=== PATIENT | male | born 1955 | race Caucasian/White ===

== ENCOUNTER 2024-09-20 17:28 | Emergency (ER) | payer MEDICARE, SELFPAY ==
[2024-09-20 17:36] VITALS: BP 170/96; PULSE 83; TEMP 36.8; O2SAT 100; BMI 40.4
--- NOTE | 2024-09-20 17:52 | ED.GENADUL1 ---
HPI HPI - General Adult General Chief complaint: Headache Stated complaint: headache Time Seen by Provider: 09/20/24 17:30 Source: patient Mode of arrival: walk-in Limitations: no limitations History of Present Illness HPI narrative: Patient is a 69-year-old male presents to the ER with concerns of a left sided headache. Patient notes for the past 2 to 3 days he has been experiencing a aching sensation in his left ear left side of his neck and left temporal area of his head that is brief lasting several seconds but prominent and then returns he notes several episodes within an hour. He does have some aching that radiates to his eye and jaw he denies any dental pain. He denies any fever. Denies any loss of vision or double vision. Has a history of a head injury over a year ago with scar to the right forehead. Patient states he was evaluated for this. He is mostly concerned as he has known carotid artery disease but has not yet seen a vascular surgeon to discuss treatment options. Patient believes he is 70% or more occluded. He denies any difficulty moving extremities or having paresthesias. He denies any hearing loss or dizziness. He has a difficulty describing his symptoms but notes that it is an achy sensation that is preauricular lasting seconds when present and then completely gone.. this occurs several times within the hour and has been present for 3 days ( gradual in onset) Onset (ago): day(s) (2-3 days) Location: Reports head (left side of face) Related Data Home Medications ?Medication ?Instructions ?Recorded ?Confirmed albuterol sulfate 90 mcg/actuation 1 inh inhalation Q6H PRN shortness 09/20/24 09/20/24 aerosol inhaler of breath or wheezing famotidine 20 mg tablet 20 mg PO .daily 09/20/24 09/20/24 latanoprost 0.005 % eye drops 1 drp ophthalmic (eye) DAILY 09/20/24 09/20/24 losartan 50 mg tablet 50 mg PO DAILY 09/20/24 09/20/24 Allergies Allergy/AdvReac Type Severity Reaction Status Date / Time lisinopril AdvReac Severe Cough Verified 09/20/24 17:35 Opioid HPI Opioid Management Most Recent Opioid Data: Last Pain Scale 9 09/20/24 19:12 09/20/24 Last MAR Pain Assessment 09/20/24 19:12 Review of Systems ROS Constitutional Denies: fever or chills Eyes Reports: blurry vision (occ, denies loss of vision. ); Denies: change in vision, eye discomfort or seeing flashes Cardiovascular Denies: chest pain, palpitations or leg pain with exertion Respiratory Denies: shortness of breath or cough Gastrointestinal Denies: abdominal pain or nausea Musculoskeletal Denies: back pain or neck pain Integumentary/Breast Denies: rash, itching or redness Neurological Reports: headache; Denies: numbness in extremities, weakness in extremities, lack of coordination, dizziness, vertigo, confusion, behavioral changes, slurred speech, difficulty communicating thoughts, seizure-like activity or involuntary movements Psychiatric Denies: anxiety or mood swings Endocrine Denies: excessive urination PFSH PFSH Social History Little interest or pleasure in doing things: not at all Feeling down, depressed, or hopeless: not at all Exam Narrative Exam Narrative: Vital signs and nurses notes reviewed. The patient is not hypoxic. General: The patient appears well and in no apparent distress. Patient is resting comfortably on cart. Skin: Warm, dry, no pallor noted. The patient has no evidence of rash, petechiae, or purpura noted. Head: Normocephalic, atraumatic, no temporal arterial tenderness Neck: Supple, trachea mid-line, no tenderness, no lymphadenopathy. No meningeal signs. No nuchal rigidity. Eye: Pupils are equal, round and reactive to light, EOMI Ears, Nose, Mouth, and Throat: Oral mucosa is moist, TMs are clear bilaterally, no hemotympanum noted. no auricle or tragal tenderness noted..no canal swelling. + discomfort with tinnels over facial nerve. Fillings in left lower molars. minimal decay,. no palpable dental tenderness or mass, no TMJ tenderness. Cardiovascular: Regular Rate and Rhythm Respiratory: Patient is in no distress, no accessory muscle use, lungs are clear to auscultation, no wheezing, rales or rhonchi Back: non-tender, no CVA tenderness Musculoskeletal: normal ROM, no tenderness, no swelling, normal strength 5/5. Normal pulses to radial 2+ bilaterally and 2+ at DP and PT bilaterally and symmetrically. GI: Normal bowel sounds, no tenderness to palpation, no masses appreciated. No rebound, guarding, or rigidity noted. Neurological: A&O x4, normal equal foreman or supervisor and operator strength, normal finger to nose, no pronator drift. The patient is not ataxic. The patient has normal speech. The patient has normal coordination. . Normal motor and sensory observed. Psychiatric: Cooperative NIH=0 Constitutional Vital Signs, click to edit/add: Last Vital Signs Temp 98.6 F 09/20/24 19:02 Pulse 79 09/20/24 19:02 Resp 19 09/20/24 19:02 BP 149/79 H 09/20/24 19:02 Pulse Ox 96 09/20/24 19:02 O2 Del Method Room Air 09/20/24 17:36 Course Vital Signs Vital signs: Vital Signs Temperature 98.2 F 09/20/24 17:36 Pulse Rate 83 09/20/24 17:36 Respiratory Rate 18 09/20/24 17:36 Blood Pressure 170/96 H 09/20/24 17:36 Pulse Oximetry 100 09/20/24 17:36 Oxygen Delivery Method Room Air 09/20/24 17:36 Temperature 98.6 F 09/20/24 19:02 Pulse Rate 79 09/20/24 19:02 Respiratory Rate 19 09/20/24 19:02 Blood Pressure 149/79 H 09/20/24 19:02 Pulse Oximetry 96 09/20/24 19:02 Oxygen Delivery Method Room Air 09/20/24 17:36 Medical Decision Making [facility] Narrative Medical decision making narrative: Discussed patient's symptoms initial history and on and off symptoms that are brief that occur several times over hours highly concerning for trigeminal neuralgia. He does have a history of glaucoma recently went from 2 drops down to 1 drop with his latanoprost. Out of an abundance of caution his eye pressures were checked patient had 1 drop of tetracaine applied to each eye with verbal consent pressure in the right eye was 15 mmHg in the left eye was 13 to 14 mmHg. with tonopen. Pt is avid fisherman. but did not fish last year.. Pt has history of falls, last one though was in January with head injury per . Visual acuity per nurse is 20/40 bilateral. Reviewed his labs, mild dehydration suspected the patient has elevated blood pressure will need this rechecked with his family doctor. He reports minimal to no change with IV Toradol. He is agreeable to [place] notes the pain is tolerable and feels comfortable being discharged home. Patient and spouse verbalized the need that he may need to see an ENT specialist but recommend a visit with his family doctor first to recheck symptoms. He is also awaiting referral for vascular clinic regarding his carotid stenosis. He has no symptoms of acute stroke or TIA on today's presentation and episodic pain lasting seconds in the left preauricular area suspected to be trigeminal neuralgia. He does not have pain to the TMJ joint or dental area in that region and ears are without evidence of infection or inflammation.. will hold on antibiotics for sinus with review of CT pending PCP evaluation. symptoms favor more facial nerve inflammation. pt has no mastoid tenderness on exam. We acknowledged his concern with known carotid artery disease however his episodic left-sided facial pain with quick on and off features favors that of trigeminal neuralgia. The patient is to followup with primary care physician in next 2-3 days or to return to the emergency department should any of the signs or symptoms worsen or new symptoms develop. Patient had questions answered. The patient agrees with the following Diagnosis and Treatment plan and the patient will be discharged home. Lab Data Lab results reviewed: Yes I reviewed the patient's lab results Labs: Lab Results 09/20/24 Range/Units 18:00 WBC 6.2 (4.0-11.0) 10^3/uL RBC 5.02 (4.70-6.10) 10^6/uL Hgb 15.2 (14.0-18.0) g/dL Hct 44.9 (42.0-54.0) % MCV 89.4 (80.0-94.0) fL MCH 30.3 (25.9-34.0) pg MCHC 33.9 (29.9-35.2) g/dL RDW 13.1 (11.0-15.0) % Plt Count 202 (150-450) 10^3/uL MPV 9.4 L (9.5-13.5) fL Neut % (Auto) 67.4 (43.0-75.0) % Lymph % (Auto) 19.4 L (20.5-60.0) % [place] % (Auto) 7.1 (1.7-12.0) % Eos % (Auto) 4.8 (0.9-7.0) % Baso % (Auto) 1.1 (0.2-2.0) % Neut # (Auto) 4.2 (1.4-6.5) 10^3/uL Lymph # (Auto) 1.2 (1.2-3.8) 10^3/uL [place] # (Auto) 0.4 (0.3-0.8) 10^3/uL Eos # (Auto) 0.3 (0.0-0.7) 10^3/uL Baso # (Auto) 0.1 (0.0-0.1) 10^3/uL Abs Immat Gran (auto) 0.01 (0.00-0.03) 10^3/uL Imm/Tot Granulo (auto) 0.2 (0.0-0.5) % ESR 19 (<=20) mm/hr PT 10.8 (9.0-11.6) sec INR 1.02 APTT 32.2 (22.3-36.2) sec Sodium 139 (136-145) mmol/L Potassium 3.9 (3.5-5.1) mmol/L Chloride 104 (98-107) mmol/L Carbon Dioxide 24.2 (21.0-32.0) mmol/L Anion Gap 14.7 BUN 19.0 H (7.0-18.0) mg/dL Creatinine 1.33 H (0.70-1.30) mg/dL Est GFR ( Amer) >60 (>=60 mL/min/1.73m^2) Est GFR (Non-Af Amer) 54 L (>=60 mL/min/1.73m^2) BUN/Creatinine Ratio 14.3 Glucose 92 (74-106) mg/dL Calcium 8.9 (8.5-10.1) mg/dL Imaging Data CT scan - head: Radiologist's impression: Scan of the head shows mild generalized brain volume loss, mild chronic small vessel ischemic type changes in the white matter. No acute intracranial hemorrhage mass or infarct or edema. Mild mucosal thickening in the paranasal sinuses, clear mastoid air cells on the right side mild partial opacification of the left mastoid air cells. No acute process seen in the brain. No acute intracranial hemorrhage or mass infarct or edema. Mild partial opacification of the left mastoid air cells. Mild mucosal thickening in the paranasal sinuses. New x-ray chest no acute process seen in the chest no lobar consolidation or edema. Discharge Plan Discharge Chief Complaint: Headache Clinical Impression: Cephalalgia, Left-sided trigeminal neuralgia Patient Disposition: Home, Self-Care Time of Disposition Decision: 20:06 Condition: Good Prescriptions / Home Meds: No Action albuterol sulfate 90 mcg/actuation HFA aerosol inhaler 1 inh INHALATION Q6H PRN (Reason: shortness of breath or wheezing) famotidine 20 mg tablet 20 mg PO .daily latanoprost 0.005 % drops 1 drp OPHTHALMIC (EYE) DAILY losartan 50 mg tablet 50 mg PO DAILY Print Language: Romansh Instructions: Trigeminal Neuralgia (ED) Additional Instructions: Return to ER if any new symptoms develop. Referrals: Kelly Gee MD [Physician] - As needed [facility] [Primary Care Provider] - As soon as possible
[2024-09-20] MEDS: KETOROLAC TROMETHAMINE 30 MG/ML VIAL IVP (18:04)
[2024-09-20 18:07] LABS: Basophils Absolute Auto 0.1 10^3/uL (0.0-0.1); Basophils Percent Auto 1.1 % (0.2-2.0); Eosinophils Absolute Auto 0.3 10^3/uL (0.0-0.7); Eosinophils Percent Auto 4.8 % (0.9-7.0); Hematocrit 44.9 % (42.0-54.0); Hemoglobin 15.2 g/dL (14.0-18.0); Immature Granulocytes Abs Auto 0.01 10^3/uL (0.00-0.03); Immature Granulocytes Pct Auto 0.2 % (0.0-0.5); Lymphocytes Absolute Auto 1.2 10^3/uL (1.2-3.8); Lymphocytes Percent Auto 19.4 % (20.5-60.0); Mean Corpuscular HGB Conc 33.9 g/dL (29.9-35.2); Mean Corpuscular Hemoglobin 30.3 pg (25.9-34.0); Mean Corpuscular Volume 89.4 fL (80.0-94.0); Mean Platelet Volume 9.4 fL (9.5-13.5); Monocytes Absolute Auto 0.4 10^3/uL (0.3-0.8); Monocytes Percent Auto 7.1 % (1.7-12.0); Neutrophils Absolute Auto 4.2 10^3/uL (1.4-6.5); Neutrophils Percent Auto 67.4 % (43.0-75.0); Platelet Count 202 10^3/uL (150-450); Red Blood Count 5.02 10^6/uL (4.70-6.10); Red Cell Distribution Width 13.1 % (11.0-15.0); White Blood Count 6.2 10^3/uL (4.0-11.0)
[2024-09-20 18:13] LABS: Erythrocyte Sedimentation Rate 19 mm/hr (<=20)
[2024-09-20] MEDS: TETRACAINE HCL 0.5% OP SOL 80 DROP/4 ML BOTTLE OP (18:14)
[2024-09-20 18:16] LABS: Anion Gap 14.7; BUN Creatinine Ratio 14.3; Calcium 8.9 mg/dL (8.5-10.1); Carbon Dioxide 24.2 mmol/L (21.0-32.0); Chloride 104 mmol/L (98-107); Estimated GFR (African America >60 (>=60 mL/min/1.73m^2); Estimated GFR (Non-African Ame 54 (>=60 mL/min/1.73m^2); Glucose 92 mg/dL (74-106); Potassium 3.9 mmol/L (3.5-5.1); Sodium 139 mmol/L (136-145)
[2024-09-20 18:22] LABS: INR 1.02; Partial Thromboplastin Time 32.2 sec (22.3-36.2); Prothrombin Time 10.8 sec (9.0-11.6)
[2024-09-20 18:40] VITALS: BP 179/92; PULSE 74; O2SAT 94
[2024-09-20 19:02] VITALS: BP 149/79; PULSE 79; TEMP 37; O2SAT 96
[2024-09-20] MEDS: HYDROCODONE/ACET 5-325 MG TABLET 1 TAB PO (19:12)
[2024-09-20] MEDS: HYDROCODONE/ACET 5-325 MG TABLET 2 TAB PO (20:18)
--- NOTE | 2024-09-20 20:24 | PC.NURSE ---
i gave this patient verbal and written discharge orders along with take home medication, and this patient voices yes to understanding these. at time of discharge this patient voices no concerns and shows no signs of distress
[2024-09-22 17:08] LABS: Lyme Total Antibody CIA Negative (Negative)
== END 2024-09-20 20:23 | disposition home or self-care (01) ==
PROVIDERS: Personal Emergency Response Attendant; Emergency Provider Emergency Medicine; PCP Family Medicine
DX: R51.9 Headache, unspecified (principal); G50.0 Trigeminal neuralgia; I77.9 Disorder of arteries and arterioles, unspecified; H40.9 Unspecified glaucoma; Z91.81 History of falling; H53.8 Other visual disturbances; M54.2 Cervicalgia
CPT/HCPCS: 36415; 70450; 71045; 80048; 85025; 85610; 85652; 85730; 86618; 96374; 99285; J1885

== ENCOUNTER 2024-11-14 18:19 | Emergency (ER) | payer MEDICARE, SELFPAY ==
--- OUTSIDE RECORDS SUMMARY | 2024-10-29 14:52 | XMS_ITS ---
Author Name Auto Generated Organization [place] Support Name Relationship Address Phone VERNON COONEY Next of Kin Unknown [phone] DUKEDAVYIRE, VERNON Next of Kin Unknown [phone] DUKEDAVYIRE, VERNON Next of Kin Unknown [phone] DEMETRICESHIRE, VERNON Next of Kin [address] [address], [place] [address] Unavailable DUKEDAVYIRE, VERNON Next of Kin Unknown [phone] [place], Vernon Next of Kin [address] [place] [address] + DEMETRICESHIRE, VERNON Next of Kin Unknown [phone] DUKESHIRE, VERNON Next of Kin Unknown [phone] DUKESHIRE, VERNON Next of Kin Unknown [phone] DUKESHIRE, VERNON Next of Kin Unknown [phone] DUKESHIRE, VERNON Next of Kin Unknown [phone] DUKESHIRE, VERNON Next of Kin Unknown [phone] DUKESHIRE, VERNON Next of Kin [address] [place] [address] + Dukeshire, Vernon Next of Kin [address] [place] [address] + DUKESHIRE, VERNON Next of Kin [address] [place] [address], [place] [address] + DUKESHIRE, VERNON Next of Kin [address] [place] [address] + DUKESHIRE, VERNON Next of Kin [address] [place] [address] + VERNON COONEY Next of Kin [address] [place] [address] + IVET, VERNON Next of Kin Unknown [phone] RAJATIRE, VERNON Next of Kin Unknown [phone] RAJATIRE, VERNON Next of Kin Unknown [phone] DEMETRICESHIRE, VERNON Next of Kin Unknown [phone] Care Team Providers Care Bunch Breaker Name Role Phone KATRINA WEST Attending Unavailable EMILYFERFREDDY Attending Unavailable JENNA, KATRINA Attending Unavailable JENNA, KATRINA Referring Unavailable JENNA, KATRINA Referring Unavailable JENNA, KATRINA Attending Unavailable HACKENBURG, ELANA [place] Attending Unavailab le HACKENBURG, ELANA [place] Referring Unavailab le JENNA, KATRINA Referring Unavailable RADHA VELASQUEZ Attending Unavailab le JENNA, KATRINA Attending Unavailable JENNA, KATRINA Attending Unavailable JENNA, KATRINA Referring Unavailable JENNA, KATRINA Referring Unavailable COOK, Sae P Attending Unavailable COOK, Sae P Referring Unavailable COOK, Sae P Admitting Unavailable COOK, Sae P Attending Unavailable COOK, Sae P Attending Unavailable JENNA, KATRINA G Referring Unavailable COOK, Sae P Attending Unavailable COOK, Sae P Attending Unavailable COOK, Sae P Referring Unavailable COOK, Sae P Admitting Unavailable COOK, Sae P Attending Unavailable COOK, Sae P Referring Unavailable COOK, Sae P Admitting Unavailable COOK, Sae P Attending Unavailable COOK, Sae P Referring Unavailable COOK, Sae P Admitting Unavailable COOK, Sae P Admitting Unavailable COOK, Sae P Attending Unavailable COOK, Sae P Referring Unavailable JENNA, KATRINA G Referring Unavailable JENNA, KATRINA G Primary Care Unavailable COOK, SAE P Referring Unavailable JENNA, KATRINA G Primary Care Unavailable PHYSICIAN, UNKNOWN Referring Unavailable JENNA, KATRINA Canseco Primary Care Unavailable PHYSICIAN, UNKNOWN Referring Unavailable JENNAKATRINA Primary Care Unavailable COOK, SAE P Referring Unavailable KATRINA WEST Harleen Primary Care Unavailable SAE CONTRERAS Referring Unavailable JENNAFABYKATRINA G Primary Care Unavailable LyMarine Attending Unavailable Reed WestKatrina Primary Care Un available LyCharlye L Admitting Unavailable LyMarine L Attending Unavailable Camposmarta Katrina West Primary Care Un available Ly, Marine L Admitting Unavailable PROBLEMS DATE TYPE CONDITION / CODE ATTENDING STATUS [facility] 09/18/2024 Unknown Encounter for sc reening for malignant neoplasm of colon / Z12.11(ICD-10) LyCharlye L [facility] 02/25/2024 Unknown Dysphagia, unspe cified / R13.10(ICD-10) Ly, Marine L [facility] 02/10/2024 Unknown Calculus of kidn ey / N20.0(ICD-10) NA Active [facility] PROCEDURES No Procedure Records Found RESULTS XR LUMBAR SPINE AP/LAT/FLEX/EXT Observed: 10/29/2024 2:52 PM Status: F Source: [facility] Exam: XR LUMBAR SPINE AP/LAT /FLEX/EXT Reason for study: Chronic bilateral low back pain with left hip pain Comparison: None AP, lateral, lateral flexion, and lateral extension views There is a slight retrolisthesis of L3-L4, stable between flexion and extension. There is severe multilevel disc degeneration with vertebral spurring and multilevel facet joint osteoarthritis. Severe atherosclerotic vascular calcifications are noted. 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 Stable retrolisthesis of L3-L4. Dictated on: 10/29/2024 4:22 PM This report has been electronically signed and approved by the interpreting Radiologist. XR HIP 2 OR 3 VW LEFT Observed: 10/30/19 2:52 PM Status: F Source: [facility] EXAM: XR HIP 2 OR 3 VW LEFT REASON FOR STUDY: Chronic bilateral low back pain with left hip pain COMPARISON: None FINDINGS: AP view of the pelvis with 2 views of the left hip The bony pelvic ring is grossly intact. Hip joint alignment is satisfactory with mild joint space narrowing of both hips. There is no fracture. There are atheromatous vascular calcifications. Impression: Mild bilateral hip joint osteoarthritis Dictated on: 10/29/2024 4:25 PM This report has been electronically signed and approved by the interpreting Radiologist. PATIENT EDUCATION Observed: 10/27/2024 1:56 PM Status: F Source: [facility] Patient Education Nephrology Dietary Guidelines to Help Prevent Kidney Stones Kidney stones are deposits of minerals and salts that form inside your kidneys. Your risk of developing kidney stones may be greater depending on your diet, your lifestyle, the medicines you take, and whether you have certain medical conditions. Most people can lower their risks of developing kidney stones by following these dietary guidelines. Your dietitian may give you more specific instructions depending on your overall health and the type of kidney stones you tend to develop. What are tips for following this plan? Reading food labels ??? Choose foods with no salt added or low-salt labels. Limit your salt (sodium) intake to less than 1,500 mg a day. ??? Choose foods with calcium for each meal and snack. Try to eat about 300 mg of calcium at each meal. Foods that contain 200?500 mg of calcium a serving include: ? 8 oz (237 mL) of milk, hpicisz-tgondpwvamsn-hxqgh milk, and calcium- fortifiedfruit juice. Calcium-fortified means that calcium has been added to these drinks. ? 8 oz (237 mL) of kefir, yogurt, and soy yogurt. ? 4 oz (114 g) of tofu. ? 1 oz (28 g) of cheese. ? 1 cup (150 g) of dried figs. ? 1 cup (91 g) of cooked broccoli. ? One 3 oz (85 g) can of sardines or mackerel. Most people need 1,000?1,500 mg of calcium a day. Talk to your dietitian about how much calcium is recommended for you. Shopping ??? Buy plenty of fresh fruits and vegetables. Most people do not need to avoid fruits and vegetables, even if these foods contain nutrients that may contribute to kidney stones. ??? When shopping for convenience foods, choose: ? Whole pieces of fruit. ? Pre-made salads with dressing on the side. ? Low-fat fruit and yogurt smoothies. ??? Avoid buying frozen meals or prepared deli foods. These can be high in sodium. ??? Look for foods with live cultures, such as yogurt and kefir. ??? Choose high-fiber grains, such as whole-wheat breads, oat bran, and wheat cereals. Cooking ??? Do not add salt to food when cooking. Place a salt shaker on the table and allow each person to add their own salt to taste. ??? Use vegetable protein, such as beans, textured vegetable protein (TVP), or tofu, instead of meat in pasta, casseroles, and soups. Meal planning ??? Eat less salt, if told by your dietitian. To do this: ? Avoid eating processed or pre-made food. ? Avoid eating fast food. ??? Eat less animal protein, including cheese, meat, poultry, or fish, if told by your dietitian. To do this: ? Limit the number of times you have meat, poultry, fish, or cheese each week. Eat a diet free of meat at least 2 days a week. ? Eat only one serving each day of meat, poultry, fish, or seafood. ? When you prepare animal proteins, cut pieces into small portion sizes. For most meat and fish, one serving is about the size of the palm of your hand. ??? Eat at least five servings of fresh fruits and vegetables each day. To do this: ? Keep fruits and vegetables on hand for snacks. ? Eat one piece of fruit or a handful of berries with breakfast. ? Have a salad and fruit at lunch. ? Have two kinds of vegetables at dinner. ??? You may be told to limit foods that are high in a substance called oxalate. These include: ? Spinach (cooked), rhubarb, beets, sweet potatoes, and Tunisian chard. ? Peanuts. ? Potato chips, [place] gu[place] fries, and baked potatoes with skin on. ? Nuts and nut products. ? Chocolate. ??? If you regularly take a diuretic medicine, make sure to eat at least 1 or 2 servings of fruits or vegetables that are high in potassium each day. These include: ? Avocado. ? Banana. ? [place], prune, carrot, or tomato juice. ? Baked potato. ? Cabbage. ? Beans and split peas. Lifestyle ??? Drink enough fluid to keep your urine pale yellow. This is the most important thing you can do. Spread your fluid intake throughout the day. ??? If you drink alcohol: ? Limit how much you have to: ? 0?1 drink a day for women who are not . ? 0?2 drinks a day for men. ? Know how much alcohol is in your drink. In the [place] one drink equals one 12 oz bottle of beer (355 mL), one 5 oz glass of wine (148 mL), or one 1? oz glass of hard liquor (44 mL). ??? Lose weight if told by your health care provider. Work with your dietitian to find an eating plan and weight loss strategies that work best for you. General information ??? Talk to your health care provider and dietitian about taking daily supplements. Depending on your health and the cause of your kidney stones, you may be told: ? Do not take high-dose supplements of vitamin C (1,000 mg a day or more). ? To take a calcium supplement. ? To take a daily probiotic supplement. ? To take other supplements such as magnesium, fish oil, or vitamin B6. ??? Take gray-skr-uozzqjq and prescription medicines only as told by your health care provider. These include supplements. What foods should I limit? Limit your intake of the following foods, or eat them as told by your dietitian. Vegetables Spinach. Rhubarb. Beets. Canned vegetables. Pickles. Olives. Baked potatoes with skin. Grains Wheat bran. Baked goods. Salted crackers. Cereals high in sugar. Meats and other proteins Nuts. Nut butters. Large portions of meat, poultry, or fish. Salted, precooked, or cured meats, such as sausages, meat loaves, and hot dogs. Dairy Cheeses. Beverages Regular soft drinks. Regular vegetable juice. Seasonings and condiments Seasoning blends with salt. Salad dressings. Soy sauce. Ketchup. Barbecue sauce. Other foods Canned soups. Canned pasta sauce. Casseroles. Pizza. Lasagna. Frozen meals. Potato chips. Norwegian fries. The items listed above may not be a complete list of foods and beverages you should limit. Contact a dietitian for more information. What foods should I avoid? Talk to your dietitian about specific foods you should avoid based on the type of kidney stones you have and your overall health. Fruits Grapefruit. The item listed above may not be a complete list of foods and beverages you should avoid. Contact a dietitian for more information. Summary ??? Kidney stones are deposits of minerals and salts that form inside your kidneys. ??? You can lower your risk of kidney stones by making changes to your diet. ??? The most important thing you can do is drink enough fluid. Drink enough fluid to keep your urine pale yellow. ??? Talk to your dietitian about how much calcium you should have each day, and eat less salt and animal protein as told by your dietitian. This information is not intended to replace advice given to you by your health care provider. Make sure you discuss any questions you have with your health care provider. Document Revised: 09/20/2022 Document Reviewed: 09/20/2022 [employer] Patient Education ? 2023 [employer]. AMBULATORY VISIT SUMMARY Observed: 10/27 1:01 PM Status: F Source: [facility] Ambulatory Visit Summary BANDAR COONEY :1955 Visit Date:10/27/2024 Ambulatory Visit Instructions Your Diagnosis Kidney stone Gross hematuria Tests Performed CT Urogram -- Results Pending -- Please visit your patient portal for your results or contact your primary care physician. Your Care Team Attending Physician - CHAR WALLACE, Sae Juarez Primary Care Physician - JENNA WALLACE, KATRINA Canseco This Is Your Medications List Contact prescribing physician if questions or concerns buPROPion (buPROPion 300 mg/24 hours ER Tab) citalopram (citalopram 40 mg Tab) famotidine (famotidine 20 mg Tab) gabapentin (gabapentin 100 mg Cap) insulin isophane-insulin regular (Novolin 70/30) losartan (losartan 50 mg Tab) semaglutide (Ozempic) simvastatin (simvastatin 40 mg Tab) Procedures Performed Cystoscopy (04/22/2024), Cholecystectomy, Colonoscopy, Hemorrhoid, Procedure on back. Discharge Vitals Temperature (Temporal Artery) 37 ???C Heart Rate (Peripheral) 80 Respiratory Rate 18 Blood Pressure 138/87 Height 180 cm Height 71 in Weight 134.9 kg Weight 297.403 lb BMI 41.64 What to do next You Need to Schedule the Following Appointments Follow Up with CHAR WALLACE, LIZZIE Roy When: [facility] [address] [place] [id number]- Medications What How Much When Instructions Unchanged buPROPion (buPROPion 300 mg/ 24 hours ER Tab) 1 Tablets By Mouth Every day Contact prescribing physician if questions or concerns Unchanged citalopram (citalopram 40 mg Tab) 1 Tablets By Mouth Every day Contact prescribing physician if questions or concerns Unchanged famotidine (famotidine 20 mg Tab) 1 Tablets By Mouth Every day Contact prescribing physician if questions or concerns Unchanged gabapentin (gabapentin 100 mg Cap) 1 Capsules By Mouth Every day Contact prescribing physician if questions or concerns Unchanged insulin isophane-insulin regular (Novolin 70/ 30) 35 Units Subcutaneous Twice a day (before meals) Contact prescribing physician if questions or concerns Unchanged losartan (losartan 50 mg Tab) 1 Tablets By Mouth Every day Contact prescribing physician if questions or concerns Unchanged semaglutide (Ozempic) Subcutaneous Every week Contact prescribing physician if questions or concerns Unchanged simvastatin (simvastatin 40 mg Tab) 1 Tablets By Mouth Once a day (at bedtime) Contact prescribing physician if questions or concerns Allergies Latex (Itch) Tape (Itching) Problems Ongoing - Any problem that you are currently receiving treatment for. Arthritis Depression Diabetes mellitus, type II Erectile dysfunction Gall stone Glaucoma Gross hematuria Head ache Hyperlipidemia Hypertension Kidney stone Liver disease Morbid obesity with BMI of 40.0-44.9, adult Skin cancer Patient Survey You may receive a survey via text or e-mail asking about your office visit. Please share your experience with us by completing your survey. We appreciate your feedback and thank you for choosing us for your care. Education Materials Dietary Guidelines to Help Prevent Kidney Stones Kidney stones are deposits of minerals and salts that form inside your kidneys. Your risk of developing kidney stones may be greater depending on your diet, your lifestyle, the medicines you take, and whether you have certain medical conditions. Most people can lower their risks of developing kidney stones by following these dietary guidelines. Your dietitian may give you more specific instructions depending on your overall health and the type of kidney stones you tend to develop. What are tips for following this plan? Reading food labels ??? Choose foods with no salt added or low-salt labels. Limit your salt (sodium) intake to less than 1,500 mg a day. ??? Choose foods with calcium for each meal and snack. Try to eat about 300 mg of calcium at each meal. Foods that contain 200???500 mg of calcium a serving include: ? 8 oz (237 mL) of milk, hfdvqob-qxwytrtaebzx-pnbbu milk, and calcium- fortifiedfruit juice. Calcium-fortified means that calcium has been added to these drinks. ? 8 oz (237 mL) of kefir, yogurt, and soy yogurt. ? 4 oz (114 g) of tofu. ? 1 oz (28 g) of cheese. ? 1 cup (150 g) of dried figs. ? 1 cup (91 g) of cooked broccoli. ? One 3 oz (85 g) can of sardines or mackerel. Most people need 1,000???1,500 mg of calcium a day. Talk to your dietitian about how much calcium is recommended for you. Shopping ??? Buy plenty of fresh fruits and vegetables. Most people do not need to avoid fruits and vegetables, even if these foods contain nutrients that may contribute to kidney stones. ??? When shopping for convenience foods, choose: ? Whole pieces of fruit. ? Pre-made salads with dressing on the side. ? Low-fat fruit and yogurt smoothies. ??? Avoid buying frozen meals or prepared deli foods. These can be high in sodium. ??? Look for foods with live cultures, such as yogurt and kefir. ??? Choose high-fiber grains, such as whole-wheat breads, oat bran, and wheat cereals. Cooking ??? Do not add salt to food when cooking. Place a salt shaker on the table and allow each person to add their own salt to taste. ??? Use vegetable protein, such as beans, textured vegetable protein (TVP), or tofu, instead of meat in pasta, casseroles, and soups. Meal planning ??? Eat less salt, if told by your dietitian. To do this: ? Avoid eating processed or pre-made food. ? Avoid eating fast food. ??? Eat less animal protein, including cheese, meat, poultry, or fish, if told by your dietitian. To do this: ? Limit the number of times you have meat, poultry, fish, or cheese each week. Eat a diet free of meat at least 2 days a week. ? Eat only one serving each day of meat, poultry, fish, or seafood. ? When you prepare animal proteins, cut pieces into small portion sizes. For most meat and fish, one serving is about the size of the palm of your hand. ??? Eat at least five servings of fresh fruits and vegetables each day. To do this: ? Keep fruits and vegetables on hand for snacks. ? Eat one piece of fruit or a handful of berries with breakfast. ? Have a salad and fruit at lunch. ? Have two kinds of vegetables at dinner. ??? You may be told to limit foods that are high in a substance called oxalate. These include: ? Spinach (cooked), rhubarb, beets, sweet potatoes, and Tunisian chard. ? Peanuts. ? Potato chips, [place] fries, and baked potatoes with skin on. ? Nuts and nut products. ? Chocolate. ??? If you regularly take a diuretic medicine, make sure to eat at least 1 or 2 servings of fruits or vegetables that are high in potassium each day. These include: ? Avocado. ? Banana. ? [place], prune, carrot, or tomato juice. ? Baked potato. ? Cabbage. ? Beans and split peas. Lifestyle ??? Drink enough fluid to keep your urine pale yellow. This is the most important thing you can do. Spread your fluid intake throughout the day. ??? If you drink alcohol: ? Limit how much you have to: ? 0???1 drink a day for women who are not . ? 0???2 drinks a day for men. ? Know how much alcohol is in your drink. In the [place] one drink equals one 12 oz bottle of beer (355 mL), one 5 oz glass of wine (148 mL), or one 1??? oz glass of hard liquor (44 mL). ??? Lose weight if told by your health care provider. Work with your dietitian to find an eating plan and weight loss strategies that work best for you. General information ??? Talk to your health care provider and dietitian about taking daily supplements. Depending on your health and the cause of your kidney stones, you may be told: ? Do not take high-dose supplements of vitamin C (1,000 mg a day or more). ? To take a calcium supplement. ? To take a daily probiotic supplement. ? To take other supplements such as magnesium, fish oil, or vitamin B6. ??? Take pptc-vam-wqyfavj and prescription medicines only as told by your health care provider. These include supplements. What foods should I limit? Limit your intake of the following foods, or eat them as told by your dietitian. Vegetables Spinach. Rhubarb. Beets. Canned vegetables. Pickles. Olives. Baked potatoes with skin. Grains Wheat bran. Baked goods. Salted crackers. Cereals high in sugar. Meats and other proteins Nuts. Nut butters. Large portions of meat, poultry, or fish. Salted, precooked, or cured meats, such as sausages, meat loaves, and hot dogs. Dairy Cheeses. Beverages Regular soft drinks. Regular vegetable juice. Seasonings and condiments Seasoning blends with salt. Salad dressings. Soy sauce. Ketchup. Barbecue sauce. Other foods Canned soups. Canned pasta sauce. Casseroles. Pizza. Lasagna. Frozen meals. Potato chips. Norwegian fries. The items listed above may not be a complete list of foods and beverages you should limit. Contact a dietitian for more information. What foods should I avoid? Talk to your dietitian about specific foods you should avoid based on the type of kidney stones you have and your overall health. Fruits Grapefruit. The item listed above may not be a complete list of foods and beverages you should avoid. Contact a dietitian for more information. Summary ??? Kidney stones are deposits of minerals and salts that form inside your kidneys. ??? You can lower your risk of kidney stones by making changes to your diet. ??? The most important thing you can do is drink enough fluid. Drink enough fluid to keep your urine pale yellow. ??? Talk to your dietitian about how much calcium you should have each day, and eat less salt and animal protein as told by your dietitian. This information is not intended to replace advice given to you by your health care provider. Make sure you discuss any questions you have with your health care provider. Document Revised: 09/20/2022 Document Reviewed: 09/20/2022 [employer] Patient Education ??? 2023 [employer]. UROLOGY OFFICE/CLINIC NOTE Observed: 11/2024 1:01 PM Status: F Source: [facility] Urology Office/Clinic Note Chief Complaint kidney stone HPI Staff PO ESWL 04/22/24 [place] done 10/21/24 @ [facility]. Previous DX: kidney stone, gross hematuria and ED IPSS score today is 1. Pt denies all urinary complaints at this time with his urination habits. States that he does continue to have pain off and on in both the right and left sides of his back. States that did see some blood after urination just this past weekend. States that he has some bladder pressure that is uncomfortable at times. History of Present Illness Tests reviewed: reviewed UA, [place], stone analysis. I have reviewed the previous health record information and history for this patient from Dr. Contreras I have reviewed and verified the staff HPI to be accurate for this encounter. There have been no associated fever, chills, flank pain, or blood in the urine. Denies any urinary infections since last encounter. Review of Systems ROS - Provider Constitutional: denies weight loss, denies hot flashes. Eyes: denies eye problems. Gastrointestinal: denies nausea, denies vomiting. Cardiovascular: denies chest pain or angina. Integumentary: no dryness Musculoskeletal: denies musculoskeletal symptoms. ENMT: denies otolaryngeal symptoms. Respiratory: no shortness of breath. Heme/Lymph: denies easy bleeding tendency, denies easy bruising tendency. Psychiatric: no confusion, no anxiety. Genitourinary: See HPI. Physical Exam Vitals & Measurements T: 37 ???C(Temporal Artery) HR: 80(Peripheral) RR: 18 BP: 138/87 HT: 180 cm HT: 71 in WT: 134.9 kg WT: 297.403 lb BMI: 41.64 General Appearance: alert, no distress, well nourished, well developed male. Assessment/Plan IPSS 1 (0) Portions of this record may have been created with voice recognition artificial intelligence software, specifically [employer], [employer] and or [employer]. Substitutions may have occurred due to the inherent limitations of voice recognition and artificial intelligence software. 1. Kidney stone (N20.0: Calculus of kidney) CT AP wo con 09/22/22 - Left sided oval renal calculus in the left renal pelvis measuring 1.4 x 0.5 cm. There is not significant left sided hydronephrosis, no ureteral stone. KUB 11/05/22 [facility] - No urinary tract calculi. Personal review: no stones visible. [1] -Pt was scheduled for L ESWL 11/15/22 but pt went to [facility] due to plans to go on vacation around time of ESWL. Saw Dr. Webb with [facility] 11/13/22, discussed operative intervention options but pt wished to undergo dissolution therapy and was started on potassium citrate. States he never had follow up due to technological complications. CT AP wo con 03/20/23 [facility] - Stable 1.3 x 0.4 cm nonobstructing L renal stone. No hydro. No R renal stones noted. KUB 01/24/24 [facility] - No evidence of nephrolithiasis. Retroperitoneal US 02/14/24 [facility] - several left renal calculi, largest 8 mm. S/p cysto, L RPG, L ESWL, L stent placement 03/12/24. Retroperitoneal US 03/24/24 [facility] - small left echogenic calculi. No hydro. KUB 04/22/24 [facility] - Left double-J ureteral stent identified with cephalad portion coiled in renal collecting system left kidney and caudal portion coiled in region of urinary bladder. S/p cysto, L stent removal, L URS/nephroscopy, holmium laser of ureteral and renal calculus/calculi, basket extraction of renal calculi fragments, replacement of L ureteral stent 04/22/24. Stone analysis - 80% uric acid and 20% ca ox monohydrate Renal US 05/12/24 [facility] - small R kidney. 4 x 6 mm calculus midpole left kidney. Retroperitoneal US 10/21/24 [facility] - 0.3 cm left renal calculus. Pt was taking potassium citrate 10mEq through [facility], Dr. Webb. Potassium 02/10/24 - 4.1 wnl. Pt states today that he is no longer taking it due to being told by our office that it doesn't do anything . Encouraged pt to restart medication. Completed 24hr urine in the distant past, does not recall findings. Pt complains of bilateral back pain, likely musculoskeletal based on exam however pt states pain is similar to prior stone events. Will order CT Urogram to rule out stone and/or obstruction. He agrees. -Restart Potassium Citrate 10 mEq 2 pills bid, new script sent -Check lytes at next lab drawn through primary care -Schedule [facility] Urogram at [facility] Follow up based on CT results. 2. Gross hematuria (R31.0: Gross hematuria) Pt states last weekend he noticed blood after he voided. Reports dysuria that has been ongoing for quite awhile . UA today negative for blood or infection. -Ordering CT Urogram to rule out stone, see above -Cont symptomatic monitoring The patient is here with his today. He previously had the uric acid stones lasered after his ESWL. He has had some bilateral flank pain and some of this was associated with a single episode of possible gross hematuria. Current urinalysis is negative. Renal ultrasound demonstrates only a 3 to 4 mm stone in the left kidney. Due to the persistence of his pain and the association with hematuria, I have recommended a CT urogram to be sure he is not trying to pass a stone on either side despite the ultrasound report. They agree with the plan. Once findings are noted we will decide upon the next step. Apparently the patient felt that I had previously told him that potassiums citrate was not necessarily needed. His urinary pH is 5.5 and I feel that it is a medication which may help him prevent uric acid stone formation, given the fact his current pH is 5.5. He agrees with the plan Follow-up With When Contact Information CHAR WALLACE, Sae Juarez, URL [address] [facility] [address] [place] [phone]- Additional Instructions: F/up barring CTU results Patient Education Dietary Guidelines to Help Prevent Kidney Stones I, Erendira Willingham, personally scribed for Dr. Contreras on 10/27/2024 14:02:35. . Documentation recorded by the scribe, Erendira Willingham, accurately reflects the services(s) I performed and decisions made by me. Authenticated by Dr. Contreras on 10/27/2024 14:04:43. Problem List/Past Medical History Ongoing Arthritis Depression Diabetes mellitus, type II Erectile dysfunction Gall stone Glaucoma Gross hematuria Head ache Hyperlipidemia Hypertension Kidney stone Liver disease Morbid obesity with BMI of 40.0-44.9, adult Skin cancer Historical No qualifying data Procedure/Surgical History Cystoscopy (04/22/2024), Cholecystectomy, Colonoscopy, Hemorrhoid, Procedure on back. Medications buPROPion 300 mg/24 hours ER Tab, 300 mg= 1 tab(s), Oral, Daily citalopram 40 mg Tab, 40 mg= 1 tab(s), Oral, Daily famotidine 20 mg Tab, 20 mg= 1 tab(s), Oral, Daily gabapentin 100 mg Cap, 100 mg= 1 cap(s), Oral, Daily losartan 50 mg Tab, 50 mg= 1 tab(s), Oral, Daily Novolin 70/30, 35 unit(s), SubCutaneous, BIDAC Ozempic, SubCutaneous, qWeek simvastatin 40 mg Tab, 40 mg= 1 tab(s), Oral, Once a day (at bedtime) Allergies Latex (Itch) Tape (Itching) Social History Alcohol - Denies Alcohol Use, 04/14/2024 Substance Abuse - Denies Substance Abuse, 04/14/2024 Tobacco - Denies Tobacco Use, 04/14/2024 Former smoker, quit more than 30 days ago Tobacco Use:. Never Smokeless Tobacco Use:. Cigarettes, Yes, 10/27/2024 Family History Alcoholism: Brother. Arthritis: Mother. Diabetes mellitus: Father. Drug addiction: Brother. Primary malignant neoplasm of lung: Mother. Immunizations Vaccine Date Status influenza virus vaccine, inactivated 05/01/2024 Recorded diphtheria/pertussis, acel/tetanus adult 09/12/2023 Recorded influenza virus vaccine, inactivated 05/02/2023 Recorded influenza virus vaccine, inactivated 05/22/2022 Recorded pneumococcal 23-valent vaccine 03/16/2021 Recorded influenza virus vaccine, inactivated 03/16/2021 Recorded SARS-CoV-2 (COVID-19) mRNA BNT-162b2 vax 10/18/2020 Recorded SARS-CoV-2 (COVID-19) mRNA BNT-162b2 vax 09/27/2020 Recorded pneumococcal 13-valent vaccine 05/28/2019 Recorded influenza virus vaccine, inactivated 05/28/2019 Recorded Lab Results Ambulatory Point of Care Results Bilirubin Urine Dipstick: Negative (10/27/24 13:13:00) Blood Urine Dipstick: Negative (10/27/24 13:13:00) Glucose Urine Dipstick: Negative (10/27/24 13:13:00) Ketones Urine Dipstick: Negative (10/27/24 13:13:00) Leukocytes Urine Dipstick: Negative (10/27/24 13:13:00) Nitrite Urine Dipstick: Negative (10/27/24 13:13:00) Protein Urine Dipstick: Negative (10/27/24 13:13:00) Specific [place] Urine Dipstick: >=1.030 (10/27/24 13:13:00) Urine Appearance Urine Dipstick: Clear (10/27/24 13:13:00) Urine Color Urine Dipstick: Yellow (10/27/24 13:13:00) Urobilinogen Urine Dipstick: Normal 0.2-1 EU/dl (10/27/24 13:13:00) pH Urine Dipstick: 5.5 (10/27/24 13:13:00) Result Comment: Electronical ly Signed By: Sae CONTRERAS MD\.br\Date and Time Signed: 10/27/24 14:06 EDT\.br\Electronically Co-Signed By: Erendira Willingham.br\Date and Time Co-Signed: 10/27/24 14:02 EDT US RETROPERITONEAL LIMITED Observed: 1:34 PM Status: COMPLETED Source: [facility] US RETROPERITONEAL LIMITED US RETROPERITONEAL LIMITED Clinical history:Kidney stone renal calculus Comparison: 03/24/2024. Findings: Real-time sonographic evaluation of the kidneys performed. Kidney measures 10.8 x 4.7 x 5.1 cm. Left kidney measures 12.8 x 4.4 x 5.5 cm. Cortical thickness and the right is 0.7 cm, the left 0.7 cm. Small left renal calculus is seen measuring 0.3 cm. Increased hepatic echotexture suggestive of diffuse hepatocellular disease, most commonly diffuse hepatic steatosis. Impression: No renal collecting system dilatation. Small left superior renal pole calculus. Finalized by Venkata Smith MD on 10/26/2024 9:17 AM L Observed: 09/18/2024 9:52 AM Status: F Source: [facility] ----- ------- Specimen: [id number] Received: 09/18/24 Status: BESSIE Argueta Num: [id number] Spec Type: Surgical Subm Dr: Marine Friend DO Tissues: A Colon Biopsy (DESCENDING COLON POLYPS) B Colon Biopsy (ASCENDING COLON POLYPS) C Colon Biopsy (TRANSVERSE COLON POLYP) Procedures: HE/Rani, Gross/Micro L4/3, Gross/Micro L3 ----- ------- Age/ Patient Sex Location Account Attending Physician ----- ------- Bandar Cooney/Ankit [id number] Marine Friend DO ----- ------- SPEC NUM: [id number] RECD: 09/18/24 STATUS: BESSIE KENDALL NUM: [id number] HÉCTOR: 09/18/[address]: Marine Friend DO ENTERED: 09/18/24 [facility] DR: SPEC TYPE: Surgical DEPT: S ENTERED BY: [id number] RECV BY: [id number] ORDERED: HE/6, Gross/Micro L4/3, Gross/Micro L3 ORDERED: HE/6, Gross/Micro L4/3, Gross/Micro L3 Pathological Diagnosis A. Descending colon polyps: ? Fragments of tubular adenoma and hyperplastic polyp ? Negative for carcinoma D. Ascending colon polyps: ? Fragments of tubular adenomas - Negative for carcinoma C. Transverse colon polyp: ? Fragments of tubular adenoma - Fragments of dietary material are noted - Negative for carcinoma Clinical Information History of polyps Gross Description Part A is received in formalin labeled with the patients name, date of , and descending colon are 2 miguel-iverson, focally erythematous, friable, 0.3 and 1.2 cm in greatest dimension polypoid fragments, 0.3 and 1.2 cm in greatest dimension. The larger polyp is inked black, bisected, and entirely submitted in a single cassette with the smaller polyp ----- ------- Specimen: [id number] Received: 09/18/24 Status: BESSIE Kendall Num: [id number] Spec Type: Surgical Subm Dr: Marine Friend DO Tissues: A Colon Biopsy (DESCENDING COLON POLYPS) B Colon Biopsy (ASCENDING COLON POLYPS) C Colon Biopsy (TRANSVERSE COLON POLYP) Procedures: HE/6, Gross/Micro L4/3, Gross/Micro L3 ----- ------- Patient: Bandar Cooney [id number] (Continued) ----- ------- Specimen: [id number] Received: 09/18/24 (Continued) Gross Description (Continued) Signed (signature on file) Roshan Mccloud MD 09/21/24 0926 ----- ------- Specimen: [id number] Received: 09/18/24 Status: BESSIE Argueta Num: [id number] Spec Type: Surgical Subm Dr: Marine Friend DO Tissues: A Colon Biopsy (DESCENDING COLON POLYPS) B Colon Biopsy (ASCENDING COLON POLYPS) C Colon Biopsy (TRANSVERSE COLON POLYP) Procedures: HE/6, Gross/Micro L4/3, Gross/Micro L3 ----- ------- Patient: Bandar Cooney [id number] (Continued) ----- ------- Specimen: Received: 09/18/24 (Continued) Gross Description (Continued) inked green and intact. (1, ns, A)JG Part B is received in formalin labeled with the patients name, date of , and ascending colon are 5 miguel-iverson, focally erythematous, friable, 0.2 to 0.3 cm in greatest dimension polypoid fragments. The specimen is entirely submitted in a single cassette. (1, ns, 1773 B) JG Part C is received in formalin labeled with the patients name, date of , and transverse colon are 2 miguel-iverson, focally erythematous, friable, 0.3 and 0.4 cm in greatest dimension polypoid fragments with adherent vegetative material. The specimen is entirely submitted in a single cassette. (1, ns, C) CPT Codes 96064n3 ----- ------- ----- ------- Specimen: [id number] Received: 09/18/24 Status: BESSIE Argueta Num: [id number] Spec Type: Surgical Subm Dr: Marine Friend, DO Tissues: A Colon Biopsy (DESCENDING COLON POLYPS) B Colon Biopsy (ASCENDING COLON POLYPS) C Colon Biopsy (TRANSVERSE COLON POLYP) Procedures: HE/6, Gross/Micro L4/3, Gross/Micro L3 ----- ------- Patient: RajatBandar martini [id number] (Continued) ----- ------- Signed (signature on file) Roshan Mccloud MD 09/21/24 0926 GLUCOSE POCT GLUCOMETERS Collected: 09/18/2024 8:25 A M Status: F Source: [facility] TYPE CODE TESTS RESULT OUT OF RANGE REFERENCE UNITS LAB GLUPOC Glucose Poc Glucometers 127 mg/dL Result Comment: Random Gluco se Reference Range is dependent on time and content of last meal. Glucose of more than 200 mg/dL in a nonstressed, ambulatory subject supports the diagnosis of Diabetes Mellitus. PERFORMED BY: [facility] [place] [address] PATHOLOGIST SEAL EXTRUSION OPERATOR JUSTO DELUNA M.D. Performed By: #### GLULS ### # Point of Care testing , VASC US CAROTID ARTERY DUPLEX BILATERAL Observed: 08/07/2024 10:44 AM Status: F Source: [facility] EPIC EXAM: Carotid Ultrasound: REASON FOR EXAM: Bruit bilateral. COMPARISON: None. TECHNIQUE: Longitudinal and transverse grayscale, color Doppler, and spectral wave analysis of the extracranial carotid vertebral systems obtained. FINDINGS: Scattered echogenic shadowing plaques present throughout. Common and internal velocities and ratios are normal. Elevation of the right external carotid velocity. Vertebral artery flow is antegrade bilaterally. Carotid Velocities in cm/sec: Right Peak Systole/End Diastole RCCA: 94/22 BULB: 123/31 FAM: Prox: 83/19 Mid: 68/19 Dist: 62/19 RECA: 230 RT VERT: 60, antegrade FAM/CCA RATIO: 0.88 Left Peak Systole/End Diastole LCCA: 134/24 BULB: 110/21 LICA: Prox: 54/15 Mid: 66/18 Dist: 79/20 LECA: 147 LT VERT: 54, antegrade LICA/CCA RATIO: 0.59 IMPRESSION: 1. Mild atheromatous disease due to calcified plaque bilaterally. No hemodynamically significant stenosis. 2. Likely 70% narrowing of the right external carotid artery. 3. Vertebral artery flow is antegrade bilaterally. This report is generated using voice recognition reporting ([employer]). On occasion, [employer] erroneously drops words from the report or replaces the spoken word with a similar sounding word. Please call with any questions/concerns regarding the report. Dictated and transcribed 08/07/2024/amanuel This report has been electronically signed and approved by the interpreting radiologist. PROVIDER LETTER Observed: 05/20/2024 11:05 AM Status: F Source: [facility] Provider Letter May 20, 2024 [place] [address] : 1955 Dear Bandar, We have been trying to reach you with no success. It is important that you return our call regarding your results upon receiving this letter. Also, at the time of your call, please provide us with your current information. Thank you for your prompt attention to this matter. Sincerely, [facility] [address], [place], [place] [address] [phone] US RENAL Observed: 05/12/2024 10:16 AM Status: F Source: [facility] Exam Date/Time: 05/12/2024 10:36 EST Reason for Exam: kidney stone;Other (please specify) Report IMPRESSION: Small right kidney. Nonobstructing left renal calculus. CLINICAL HISTORY: kidney stone. COMPARISON: NONE. COMMENT: Right kidney measures 10.7 x 5.6 x 5.5 cm. Left kidney measures 13.4 x 5.5 x 5.9 cm. Right kidney smaller than left. Both kidneys normal in contour, echogenicity and color flow. 4 x 6 mm calculus midpole left kidney. No pelvocaliectasis, cortical thinning, cystic/solid lesions bilaterally. Ordering Provider: Sae CONTRERAS FINAL REPORT Dictated: 05/12/2024 4:24 pm SignKennedy mcgowan MD Signed (Electronic Signature): 05/12/2024 4:24 pm Signed by: Kennedy Foote MD Transcribed by: PAT Technologist: PAIGE XR KNEE 4+ VIEWS LEFT Observed: 05/11/20 3:20 PM Status: F Source: [facility] Exam: XR KNEE 4+ VIEWS LEFT Clinical History: Severe left knee pain medially for three days, no trauma Reference Exam: No comparison FINDINGS: Left knee joint spaces are preserved. Small amount of fluid in the left knee joint. Regional vascular atherosclerosis. No fracture or other bony lesion. IMPRESSION: Small left knee joint effusion. Otherwise, no acute abnormality is determined radiographically. Dictated on: 05/11/2024 2:13 PM This report has been electronically signed and approved by the interpreting Radiologist. PROGRESS NOTE-PHYSICIAN Observed: 2023 7:23 PM Status: F Source: [facility] Progress Note-Physician Patient: BANDAR COONEY Age: 68 years Sex: Male : 1955 Associated Diagnoses: None Author: Ferdinand Noe Jr., DO Postoperative Information Postoperative disposition: Postoperative disposition: Home. Optimetrix number: Optimetrix number [phone]. Anesthetic utilized: General. Physical Examination Vital Signs 04/22/2024 18:53 EDT Heart Rate Monitored 81 bpm SpO2 94 % 04/22/2024 18:53 EDT Systolic Blood Pressure 144 mmHg HI Diastolic Blood Pressure 84 mmHg Mean Arterial Pressure, Monitered 104 mmHg 04/22/2024 18:45 EDT Temperature Temporal Artery 36.4 DegC Heart Rate Monitored 82 bpm Respiratory Rate Monitored 19 br/min Systolic Blood Pressure 120 mmHg Diastolic Blood Pressure 64 mmHg Blood Pressure Location Left arm Mean Arterial Pressure, Cuff 83 mmHg SpO2 96 % 04/22/2024 18:35 EDT Heart Rate Monitored 77 bpm Respiratory Rate Monitored 15 br/min Systolic Blood Pressure 118 mmHg Diastolic Blood Pressure 63 mmHg Blood Pressure Location Left arm Mean Arterial Pressure, Cuff 81 mmHg SpO2 99 % 04/22/2024 18:30 EDT Heart Rate Monitored 77 bpm Respiratory Rate Monitored 13 br/min Systolic Blood Pressure 111 mmHg Diastolic Blood Pressure 71 mmHg Blood Pressure Location Left arm Mean Arterial Pressure, Cuff 84 mmHg SpO2 96 % 04/22/2024 18:25 EDT Heart Rate Monitored 80 bpm Respiratory Rate Monitored 13 br/min Systolic Blood Pressure 126 mmHg Diastolic Blood Pressure 78 mmHg Blood Pressure Location Left arm Mean Arterial Pressure, Cuff 94 mmHg SpO2 100 % 04/22/2024 18:20 EDT Temperature Temporal Artery 36.2 DegC LOW Heart Rate Monitored 81 bpm Respiratory Rate Monitored 21 br/min Systolic Blood Pressure 153 mmHg HI Diastolic Blood Pressure 78 mmHg Blood Pressure Location Left arm Mean Arterial Pressure, Cuff 103 mmHg SpO2 100 % Pain Assessment: Controlled, Pain Assessment 04/22/2024 19:15 EDT Pain Symptoms Self Report No, able to self report 04/22/2024 18:53 EDT Pain Symptoms Self Report No, able to self report 04/22/2024 18:45 EDT Verbal Descriptor Pain Scale No pain 04/22/2024 18:20 EDT Verbal Descriptor Pain Scale No pain . General: Awake, Alert, Appropriate. Respiratory: Adequate air exchange, Non-labored. Cardiovascular: Stable, Normal peripheral perfusion. Neurological: Neurologic exam at baseline. No changes.. Assessment Anesthetic outcome No anesthetic complications noted. No nausea/vomiting. Review / Management Condition: Stable. Plan Transfer/Discharge: Transfer/Discharge Discharge when meets criteria ( From PACU to Ambulatory Surgery Unit, and To home ). Result Comment: Electronical ly Signed By: Ferdinand Noe Jr., DO\Date and Time Signed: 04/23/24 06:54 EDT PATIENT EDUCATION - TEXT Observed: 04/22 6:39 PM Status: C Source: [facility] Patient Education - Text [facility] [place], [place] Dr. Sae Booker Post-operative Instructions for Ureteroscopy, Laser Lithotripsy, Stone Extraction and Stent Placement There are no incisions or dressings to be concerned with, as the procedure was performed inside the urinary system. For 24 hours after surgery: ??? No driving or operating machinery ??? Do not make important decisions ??? Do not consume alcohol, sleeping pills Stent Placement You may have a stent which spans the distance between your bladder and your kidney, allowing urine to pass through. It prevents blockage from swelling, kidney stones in ureter (tube connecting the kidney to the bladder), or scars. The presence of the stent may cause: ??? Back or side pain, especially with urination ??? Frequent or urgent urination ??? Bladder pressure or pain ??? Blood in urine You may pass stone debris or small blood clots, which is expected. Drinking plenty of water to dilute the urine may help. If there is a thread coming out of urinary channel, be careful not to accidently pull on this, as it is attached to the stent. You may remove this yourself over the weekend. Diet You may resume your normal diet, but you may want to start slowly and avoid spicy food, caffeine, carbonated beverages and alcohol, especially if you have a stent. Your diet and fluid intake may make irritation from the stent worse. Activity You may resume your normal activities, although you should take it easy on the day of the procedure. Minimizing activity may decrease the back discomfort and irritation from the stent, if present. Medications ??? You may resume your home medications unless instructed otherwise. ??? Hold aspirin, ibuprofen, Coumadin (warfarin) and other blood thinners until your office visit (we will discuss when to resume these medications) ??? Take your prescribed medications as directed, including your antibiotics. You may also be given a prescription for pain medicine or medicines to help with the bladder irritation from stent, if present. Things to watch for which would require an Emergency Room Visit (or call 911) (This is not a complete list) ??? Fever over 101.5 degrees, with or without chills ??? Severe bleeding ??? Severe drug reactions with itching, hives, rash, or severe flank pain ??? Tenderness or swelling or the calves, chest pain, or shortness of breath Please call the office to arrange for your post-operative appointment in about six months with a kidney ultrasound. [phone], OUTPATIENT SURGERY DISCHARGE INSTRUCTION Observed: 04/22/2024 6:39 PM Status: C Source: [facility] Outpatient Surgery Discharge Instruction [address] [address] Patient Discharge Instructions PERSON INFORMATION Name: BANDAR COONEY Date of : 1955 Current Date: 04/22/2024 18:39:28 PHYSICIANS Admitting Physician: Sae CONTRERAS MD Discharge Diagnosis: BANDAR COONEY has been given the following list of follow-up instructions, prescriptions, and patient education materials: PATIENT FOLLOW-UP INFORMATION Diet: Calorie Controlled- 2000 Calorie Diet Discharge Activity: Arrange for a responsible adult supervision for 24 hours, Expect mild pain, Expect minimal amount of drainage and/or bleeding Discharge Restrictions: No driving, Do not operate machinery or tools, Do not make important decisions for 24 hours, Do not drink alcoholic beverages for 24 hours Call Your Doctor For: Persistent or heavy bleeding, Temperature above 101.5 degrees IF UNABLE TO CONTACT YOUR PHYSICIAN AND YOU FEEL IT IS AN EMERGENCY, GO TO THE NEAREST EMERGENCY ROOM OR CALL 911 I, DEMETRICEDAVYNILESH BANDAR, have received the attached patient education materials/instructions and have verbalized understanding: May we do a follow up call? Yes No I was present when discharge instructions were given Patient Signature Date Clinican/Nurse Signature Date Follow up: With: Address: When: Sae CONTRERAS [address] [place], [place] [address], [address], [address] [address] [facility] (1) Comments: I was able to retrieve stone fragments after lasering them into much smaller pieces. This is a fairly long tedious procedure. I did replace the stent but as you know, the threads are taped over the phallus so you can remove the stent either Saturday or Saturday. I would recommend going back on the potassium citrate at 2 pills twice per day. Please call my office so we can send an order for serum electrolytes to be obtained in about 2 to 3 weeks after restarting the medication. At the same time I would like to check your serum uric acid level as well. I did send an order for some antibiotics to your pharmacy. Pharmacy Information: You may receive a survey from Janet Flannery asking you to rate your care experience. Your feedback is important and will help us understand what we do well and how we can improve the quality of care we provide to you, your loved ones and our community. It???s an honor to serve you. Thank you for choosing [facility] HERE ARE THE MEDICATION CHANGES THAT OCCURRED DURING YOUR HOSPITAL STAY New Medications [facility] [id number], [address], [place] [id number], [phone] acetaminophen-hydrocodone (acetaminophen-hydrocodone 325 mg-5 mg oral tablet) 1 Tablets By Mouth every 4 hours as needed Pain for 2 Days. Refills: 0. ciprofloxacin (Cipro 500 mg Tab) 1 Tablets By Mouth 2 times a day. Refills: 0. Medications to Continue with No Changes Other Medications buPROPion (buPROPion 300 mg/24 hours ER Tab) 1 Tablets By Mouth every day. citalopram (citalopram 40 mg Tab) 1 Tablets By Mouth every day. famotidine (famotidine 20 mg Tab) 1 Tablets By Mouth every day. gabapentin (gabapentin 100 mg Cap) 1 Capsules By Mouth every day. insulin isophane-insulin regular (Novolin 70/30) 35 Units Subcutaneous twice a day (before meals). losartan (losartan 50 mg Tab) 1 Tablets By Mouth every day. semaglutide (Ozempic) Subcutaneous every week. simvastatin (simvastatin 40 mg Tab) 1 Tablets By Mouth once a day (at bedtime). PATIENT EDUCATION INFORMATION Instructions: [facility] [place], [place] Dr. Sae Booker Post-operative Instructions for Ureteroscopy, Laser Lithotripsy, Stone Extraction and Stent Placement There are no incisions or dressings to be concerned with, as the procedure was performed inside the urinary system. For 24 hours after surgery: ??? No driving or operating machinery ??? Do not make important decisions ??? Do not consume alcohol, sleeping pills Stent Placement You may have a stent which spans the distance between your bladder and your kidney, allowing urine to pass through. It prevents blockage from swelling, kidney stones in ureter (tube connecting the kidney to the bladder), or scars. The presence of the stent may cause: ??? Back or side pain, especially with urination ??? Frequent or urgent urination ??? Bladder pressure or pain ??? Blood in urine You may pass stone debris or small blood clots, which is expected. Drinking plenty of water to dilute the urine may help. If there is a thread coming out of urinary channel, be careful not to accidently pull on this, as it is attached to the stent. You may remove this yourself over the weekend. Diet You may resume your normal diet, but you may want to start slowly and avoid spicy food, caffeine, carbonated beverages and alcohol, especially if you have a stent. Your diet and fluid intake may make irritation from the stent worse. Activity You may resume your normal activities, although you should take it easy on the day of the procedure. Minimizing activity may decrease the back discomfort and irritation from the stent, if present. Medications ??? You may resume your home medications unless instructed otherwise. ??? Hold aspirin, ibuprofen, Coumadin (warfarin) and other blood thinners until your office visit (we will discuss when to resume these medications) ??? Take your prescribed medications as directed, including your antibiotics. You may also be given a prescription for pain medicine or medicines to help with the bladder irritation from stent, if present. Things to watch for which would require an Emergency Room Visit (or call 911) (This is not a complete list) ??? Fever over 101.5 degrees, with or without chills ??? Severe bleeding ??? Severe drug reactions with itching, hives, rash, or severe flank pain ??? Tenderness or swelling or the calves, chest pain, or shortness of breath Please call the office to arrange for your post-operative appointment in about six months with a kidney ultrasound. [phone], Medication Leaflets: INPATIENT PATIENT SUMMARY Observed: 03/26 6:39 PM Status: C Source: [facility] Inpatient Patient Summary [address] [address] [facility] Clinical Discharge Instructions PERSON INFORMATION Name: [facility] Admitting Physician: Sae CONTRERAS MD Attending Physician: Sae CONTRERAS MD PCP: KATRINA WEST MD Discharge Diagnosis: Comment: PATIENT EDUCATION INFORMATION Instructions: Cnen-Emxc-iy Utereroscopy,Lithotripsy, Stone Extraction, Stent Placement (Custom) Medication Leaflets: Follow up: With: Address: When: Sae CONTRERAS [address] [place] [address], [address], [address] [address] Business (1) Comments: I was able to retrieve stone fragments after lasering them into much smaller pieces. This is a fairly long tedious procedure. I did replace the stent but as you know, the threads are taped over the phallus so you can remove the stent either Saturday or Saturday. I would recommend going back on the potassium citrate at 2 pills twice per day. Please call my office so we can send an order for serum electrolytes to be obtained in about 2 to 3 weeks after restarting the medication. At the same time I would like to check your serum uric acid level as well. I did send an order for some antibiotics to your pharmacy. MEDICATION LIST New Medications [facility] [id number], [address], [place] [id number], [phone] acetaminophen-hydrocodone (acetaminophen-hydrocodone 325 mg-5 mg oral tablet) 1 Tablets By Mouth every 4 hours as needed Pain for 2 Days. Refills: 0. ciprofloxacin (Cipro 500 mg Tab) 1 Tablets By Mouth 2 times a day. Refills: 0. Medications to Continue with No Changes Other Medications buPROPion (buPROPion 300 mg/24 hours ER Tab) 1 Tablets By Mouth every day. citalopram (citalopram 40 mg Tab) 1 Tablets By Mouth every day. famotidine (famotidine 20 mg Tab) 1 Tablets By Mouth every day. gabapentin (gabapentin 100 mg Cap) 1 Capsules By Mouth every day. insulin isophane-insulin regular (Novolin 70/30) 35 Units Subcutaneous twice a day (before meals). losartan (losartan 50 mg Tab) 1 Tablets By Mouth every day. semaglutide (Ozempic) Subcutaneous every week. simvastatin (simvastatin 40 mg Tab) 1 Tablets By Mouth once a day (at bedtime). Comment: DISCHARGE INSTRUCTIONS Observed: 024 6:36 PM Status: F Source: [facility] Discharge Instructions BANDAR COONEY :1955 Visit Date:04/22/2024 Inpatient Discharge Instructions Your Care Team Admitting Physician - Sae CONTRERAS MD Referring Physician - Sae CONTRERAS MD Reason for Your Visit KIDNEY STONE Tests Performed Calculi Analysis Urinary -- Results Pending -- XR Abdomen 1 View XR Urography Retrograde Left -- Results Pending -- Please visit your patient portal for your results or contact your primary care physician. Discharge Vitals Temperature (Temporal Artery) 36.2 ???C Heart Rate (Monitored) 77 Respiratory Rate 13 Blood Pressure 111/71 What to do next Instructions From Your Doctor Event Name Event Result Discharge Activity Arrange for a responsible adult supervision for 24 hours, Expect mild pain, Expect minimal amount of drainage and/or bleeding Discharge Restrictions No driving, Do not operate machinery or tools, Do not make important decisions for 24 hours, Do not drink alcoholic beverages for 24 hours Discharge Diet(s) Calorie Controlled- 2000 Calorie Diet Call Your Doctor For Persistent or heavy bleeding, Temperature above 101.5 degrees Discharge Instructions Discharge Instructions New Follow Up Appointments after Discharge Follow Up with Sae CONTRERAS When: Comments: I was able to retrieve stone fragments after lasering them into much smaller pieces. This is a fairly long tedious procedure. I did replace the stent but as you know, the threads are taped over the phallus so you can remove the stent either Saturday or Saturday. I would recommend going back on the potassium citrate at 2 pills twice per day. Please call my office so we can send an order for serum electrolytes to be obtained in about 2 to 3 weeks after restarting the medication. At the same time I would like to check your serum uric acid level as well. I did send an order for some antibiotics to your pharmacy. Where: [facility] [address] [address] Business (1) Medications What How Much When Instructions Next Dose New ciprofloxacin (Cipro 500 mg Tab) 1 Tablets By Mouth 2 times a day Pickup at [facility] [id number] Unchanged buPROPion (buPROPion 300 mg/ 24 hours ER Tab) 1 Tablets By Mouth Every day Unchanged citalopram (citalopram 40 mg Tab) 1 Tablets By Mouth Every day Unchanged famotidine (famotidine 20 mg Tab) 1 Tablets By Mouth Every day Unchanged gabapentin (gabapentin 100 mg Cap) 1 Capsules By Mouth Every day Unchanged insulin isophane-insulin regular (Novolin 70/ 30) 35 Units Subcutaneous Twice a day (before meals) Unchanged losartan (losartan 50 mg Tab) 1 Tablets By Mouth Every day Unchanged semaglutide (Ozempic) Subcutaneous Every week Unchanged simvastatin (simvastatin 40 mg Tab) 1 Tablets By Mouth Once a day (at bedtime) Pharmacy Information [facility] [id number]: [address], [place] [id number] [phone] Allergies Latex (Itch) Tape (Itching) Education Materials [facility] [place], [place] Dr. Sae Booker Post-operative Instructions for Ureteroscopy, Laser Lithotripsy, Stone Extraction and Stent Placement There are no incisions or dressings to be concerned with, as the procedure was performed inside the urinary system. For 24 hours after surgery: ??? No driving or operating machinery ??? Do not make important decisions ??? Do not consume alcohol, sleeping pills Stent Placement You may have a stent which spans the distance between your bladder and your kidney, allowing urine to pass through. It prevents blockage from swelling, kidney stones in ureter (tube connecting the kidney to the bladder), or scars. The presence of the stent may cause: ??? Back or side pain, especially with urination ??? Frequent or urgent urination ??? Bladder pressure or pain ??? Blood in urine You may pass stone debris or small blood clots, which is expected. Drinking plenty of water to dilute the urine may help. If there is a thread coming out of urinary channel, be careful not to accidently pull on this, as it is attached to the stent. You may remove this yourself over the weekend. Diet You may resume your normal diet, but you may want to start slowly and avoid spicy food, caffeine, carbonated beverages and alcohol, especially if you have a stent. Your diet and fluid intake may make irritation from the stent worse. Activity You may resume your normal activities, although you should take it easy on the day of the procedure. Minimizing activity may decrease the back discomfort and irritation from the stent, if present. Medications ??? You may resume your home medications unless instructed otherwise. ??? Hold aspirin, ibuprofen, Coumadin (warfarin) and other blood thinners until your office visit (we will discuss when to resume these medications) ??? Take your prescribed medications as directed, including your antibiotics. You may also be given a prescription for pain medicine or medicines to help with the bladder irritation from stent, if present. Things to watch for which would require an Emergency Room Visit (or call 911) (This is not a complete list) ??? Fever over 101.5 degrees, with or without chills ??? Severe bleeding ??? Severe drug reactions with itching, hives, rash, or severe flank pain ??? Tenderness or swelling or the calves, chest pain, or shortness of breath Please call the office to arrange for your post-operative appointment in about six months with a kidney ultrasound. [phone], Common Emergency Awareness Tips IS IT A STROKE? Act FAST and Check for these signs: FACE Does the face look uneven? ARM Does one arm drift down? SPEECH Does their speech sound strange? TIME Call at any sign of stroke Heart Attack Signs Chest discomfort: Most heart attacks involve discomfort in the center of the chest and lasts more than a few minutes, or goes away and comes back. It can feel like uncomfortable pressure, squeezing, fullness or pain. Discomfort in upper body: Symptoms can include pain or discomfort in one or both arms, back, neck, jaw or stomach. Shortness of breath: With or without discomfort. Other signs: Breaking out in a cold sweat, nausea, or lightheaded. Remember, MINUTES DO MATTER. If you experience any of these heart attack warning signs, call to get immediate medical attention! Patient Survey You may receive a survey in the mail asking you about your stay with us. We want to hear from you, please share your experience with us by completing your survey. Thank you for choosing [facility]. Jami Award Nomination The JAMI (Diseases Attacking the Immune SYstem) Award is an international recognition program that honors and celebrates the skillful, compassionate care nurses provide every day. Anyone who experiences or observes amazing care being provided by a nurse is encouraged to submit a nomination. To nominate your nurse, use your smart phone to scan the QR code below. Patient Portal You may access all of your results and other medical record information on our secure patient portal. If you are not signed up for this yet, please contact [employer] at [phone] to get signed up today. Patient Name: BANDAR COONEY I have received this information and my questions have been answered. 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 Performed by: Sae Contreras MD. Findings: Procedure: Cystoscopy Left ureteral stent removal Left ureteroscopy/nephroscopy Holmium laser ablation left ureteral calculus fragment as well as left renal calculi fragments, multiple Basket extraction renal calculi fragments Replacement left double-J ureteral string stent. Anesthesia: General, LMA, Dr. Noe, 2% Xylocaine jelly per urethra Indications: This is a 68-year-old male who is status post cystoscopy left stent placement after ESWL. This required retrograde pyelogram as suspicion is high for the presence of a uric acid stone. Renal ultrasound postoperatively demonstrated multiple stone fragments in the kidney and he presents today for retrograde ureteroscopic approach with laser ablation and basket extraction of remaining fragments with the possibility of stent replacement. He understands risk benefits and details of the procedure including risk of bleeding, infection, need for additional procedural intervention. He understands the risk of heart and lung problems under anesthesia. He did receive preoperative antibiotics and does have sequential compression devices in place and functional bilateral extremities throughout the case. Procedure: Patient is brought back to the operating room and a timeout was performed. All are in agreement with the operative plan. He is identified appropriately. After the successful induction of general anesthesia by Dr. Noe he is placed in a modified dorsolithotomy position, prepped in usual fashion Betadine solution and draped appropriately. Pressure points were padded. 2% Xylocaine jelly is placed per urethra and a well-lubricated 22 Norwegian is urethroscope with 30 degree lens then passed into the bladder without difficulty. Anterior urethra is normal. Prostate is moderately obstructing in the lateral lobes. Once into the bladder panendoscopy reveals no tumors, no stones, he does have a stent coming from the left orifice was ureteral inflammation in the area. A 0.035 guidewire was negotiated alongside the stent up into the kidney and the existing stent did have some moderate encrustation of the crural but the stent was easily removed with an alligator forceps. The stent was discarded. I decided to place a ureteral access sheath and this was accomplished over the wire and this was passed to the level of the ureteropelvic junction and the inner trocar portion was removed. Digital flexible ureteroscopy was performed throughout the rest of the case. He had stone fragments right at the UPJ and these were lasered with a holmium laser at 10 W of power, more fragments were pushed into the kidney. He also had fragments from the upper portion of the stent within the renal pelvis. Some of these were lasered as well. This is a very tedious case with approximately 2 hours of operating time. Multiple stone fragments were located in the inferior pole which required laser ablation. Other fragments were simply basketed. Endoscopy of the entire renal collecting system including each infundibulum and calyx was accomplished. Upon completion only submillimeter fragments remained. Ureteroscopy was carried down the ureter and a couple other stone fragments were identified and basketed free. All stone fragments were retrieved at the end of the case and sent to pathology for evaluation. Ureteroscopy was carried all the way down the ureter. It was felt that a ureteral stent was indicated secondary to the amount of manipulation up near the UPJ. 0.035 wire was left in place and the access sheath was removed. Cystoscope was backloaded over the wire and a 4.9 Norwegian Dornier 22 to 30 cm stent was passed in the left kidney. The wire was removed and there is good curl within the kidney and urinary bladder. Bladder emptied scope removed and the procedure was terminated after the threads were taped to the patient's phallus. The plan will be for him to remove the ureteral string stent in 3 to 4 days at home. He will restart his potassium citrate at 2 pills twice a day, each 10 mEq. Discussed all this with his . He will require blood work to include electrolytes and serum uric acid level. The possibility exists that he may benefit from allopurinol as well. She understands all this. Tentative plan for 6-month follow-up with renal ultrasound. Prescription sent to pharmacy for ciprofloxacin. 5 pills of [place] also sent. . Estimated Blood Loss: 1 ml. Complications: None. Anesthesia type: General. Result Comment: Electronical ly Signed By: CHAR WALLACE, Sae Mckeon.br\Date and Time Signed: 04/22/24 18:37 EDT CALCULUS ANALYSIS Collected: 04/22/2024 5:25 PM Stat us: F Source: [facility] TYPE CODE TESTS RESULT OUT OF RANGE REFERENCE UNITS LAB 9804-6([facility]) WEIGHT:MASS:PT: CALCULUS:QN: 397 Unknown mg LAB [id number]([facility] ) Composition Comment Unknown Result Comment: Percentage ( Represents the % composition) LAB 75139-2([facility]) CALCIUM OXALATE MONOHYDRATE/TOT AL:MFR:PT:CALCU GLORIA:QN: 20 Unknown % LAB 89790-5([facility]) URATE/TOTAL:MFR :PT:CALCULUS:QN : 80 Unknown % LAB 26233-3([facility]) LABORATORY COMMENT:TXT:PT: REPORT:JOSEPHINE: Comment Unknown Result Comment: Physician qu estions regarding Calculi Analysis [facility] at: [phone]. LAB CD:[id number]( [facility]) Disclaimer: Comment Unknown Result Comment: This test wa s developed and its performance characteristics determined by [facility]. It has not been cleared or approved by the Food and Drug Administration. Performed at: [address] [id number] PhD Evie Yee LAB [id number]([facility] ) Please Note: Comment Unknown Result Comment: Calculi repo rt will follow via computer, mail or language therapist delivery. LAB 9796-4([facility]) COLOR:TYPE:PT:C ALCULUS:NOM: [place] Unknown LAB 93472-2([facility]) SPECIMEN SOURCE SUBJECT:TYPE:PT :*:NOM: Comment Unknown Result Comment: Left Kidney LAB 9802-0([facility]) SIZE:ENTVOL:PT: CALCULUS:QN: 7x4 Unknown mm Result Comment: Multiple pie guilherme received. Dimensions of the largest piece reported. LAB CD:[id number]( [facility]) Stone Photo Comment Unknown Result Comment: Photograph w ill follow under a separate cover Performed By: #### [id number] #### [facility] [address] [place] [address] MAIN OR INTRAOPERATIVE RECORD Observed: 04/22/2024 4:58 PM Status: C Source: [facility] Main OR Intraoperative Recor d IntraOp Document Type FT Summary Primary Physician: Sae CONTRERAS MD Finalized Date/Time: 04/23/24 13:32:31 Pt. Name: BANDAR COONEY./Sex: 1955 Male Med Rec #: [id number] Physician: Sae CONTRERAS MD Financial #: [id number] Pt. Type: A Room/Bed: [place] [address] Admit/Disch: 04/22/24 13:17:25 - 04/22/24 19:20:00 Institution: Case Times FT Entry 1 Patient Times In Room 04/22/24 16:42:00 Out Room 04/22/24 18:18:00 Procedure Times Start 04/22/24 16:58:00 Stop 04/22/24 18:13:00 Anesthesia Times Start 04/22/24 16:42:00 Stop 04/22/24 18:18:00 Last Modified By: Abarham Varner 04/22/24 18:19:17 General Comments: 04/23/24 Chart opened to review and send charges [facility]oth CSFA Case Attendance FT Entry 1 Entry 2 Entry 3 Case Attendee CHAR WALLACE, [facility], Abraham Carrillo Role Performed Surgeon - Primary Anesthesiologist [place] - Primary Vehicle Window Tinter Time In 04/22/24 16:53:00 04/22/24 16:42:00 04/22/24 16:42:00 Time Out 04/22/24 18:18:00 04/22/24 17:29:00 04/22/24 18:18:00 Procedure CYSTOSCOPY CYSTOSCOPY CYSTOSCOPY URETEROSCOPY(Left), URETEROSCOPY(Left), URETEROSCOPY(Left), CYSTOSCOPY W/ HOMIUM CYSTOSCOPY W/ HOMIUM CYSTOSCOPY W/ HOMIUM LASER(Left), CYSTOSCOPY LASER(Left), CYSTOSCOPY LASER(Left), CYSTOSCOPY STENT REMOVAL(Left) STENT REMOVAL(Left) STENT REMOVAL(Left) Comments DR NOE SUPERVISING Last Modified By: Abraham Varner Terry T Sweene, Terry T 04/22/24 18:19:18 04/22/24 18:19:18 04/22/24 18:19:18 Entry 4 Entry 5 Entry 6 Case Attendee Shakeel Kc CST, Kendall R Chaput, Madison A Role Performed Staff - Other Scrub - Primary Scrub - Relief Time In 04/22/24 16:42:00 04/22/24 16:42:00 04/22/24 16:50:00 Time Out 04/22/24 16:58:00 04/22/24 16:53:00 04/22/24 18:18:00 Procedure CYSTOSCOPY CYSTOSCOPY CYSTOSCOPY URETEROSCOPY(Left), URETEROSCOPY(Left), URETEROSCOPY(Left), CYSTOSCOPY W/ HOMIUM CYSTOSCOPY W/ HOMIUM CYSTOSCOPY W/ HOMIUM LASER(Left), CYSTOSCOPY LASER(Left), CYSTOSCOPY LASER(Left), CYSTOSCOPY STENT REMOVAL(Left) STENT REMOVAL(Left) STENT REMOVAL(Left) Comments ROOM ASSIST Last Modified By: Abraham Varner Terry T Sweene, Terry T 04/22/24 18:19:18 04/22/24 18:19:18 04/22/24 18:19:18 Entry 7 Entry 8 Case Attendee Jazlyn Concepcion Jr., DO, Clyde G Role Performed Floor Care Specialist Anesthesiologist of Record Time In 04/22/24 16:42:00 04/22/24 17:29:00 Time Out 04/22/24 18:18:00 04/22/24 18:18:00 Procedure CYSTOSCOPY CYSTOSCOPY URETEROSCOPY(Left), URETEROSCOPY(Left), CYSTOSCOPY W/ HOMIUM CYSTOSCOPY W/ HOMIUM LASER(Left), CYSTOSCOPY LASER(Left), CYSTOSCOPY STENT REMOVAL(Left) STENT REMOVAL(Left) Comments Last Modified By: Abraham Varner Terry T 04/22/24 18:19:18 04/22/24 18:40:39 General Comments: JAZLYN DOUGLAS REP HERE FOR CASE. Rosas VARNER RN. Perioperative Protocols FT Pre-Care Text: Implements protective measures prior to operative or invasive procedure, confirms identity before the operative or invasive procedure, verifies operative procedure, surgical site, and laterality Entry 1 Procedure(s) CYSTOSCOPY Patient Identity Birthday, ID Band URETEROSCOPY(Left), Verified (select at Check, Patient CYSTOSCOPY W/ HOMIUM least 2): Participation LASER(Left), CYSTOSCOPY STENT REMOVAL(Left) Consents / H and P Anesthesia Consent, Operative Site N/A Verified H&P, Surgery/Procedure Marking Verified Consent Surgical Site Yes Laterality Verified Yes Verified Procedure Verified Yes Correct Patient Yes Position Verified Availability Equipment, Implant, Prep Dry n/a Verified (If Medication, X-ray Applicable) PreOp Antibiotic Yes Time Out CHAR WALLACE, Sae Juarez, Given Participants Tommy Branch, Abraham Varner, Miladys Fernandes, Jazlyn Concepcion Time Out Complete 04/22/24 16:58:00 Outcomes Met? Yes Last Modified By: Abraham Varner 04/22/24 17:15:06 Post-Care Text: The patient is free from signs and symptoms of injury caused by extraneous objects Allergy Information FT Pre-Care Text: Verifies allergies Entry 1 Allergies Reviewed? Yes Allergies Reviewed Self/Patient With Outcomes Met? Yes Last Modified By: Abraham Varner 04/22/24 17:15:13 Post-Care Text: The patient received appropriate medication(s) safely administered during the perioperative period Surgical Procedures FT Entry 1 Entry 2 Entry 3 Procedure Description Procedure CYSTOSCOPY URETEROSCOPY CYSTOSCOPY W/ HOMIUM CYSTOSCOPY STENT REMOVAL LASER Modifiers Left Left Left Surgeon Description CYSTOSCOPY, LEFT CYSTOSCOPY, LEFT CYSTOSCOPY, LEFT URETEROSCOPY, HOLMIUM URETEROSCOPY, HOLMIUM URETEROSCOPY, HOLMIUM LASER LITHOTRIPSY, LASER LITHOTRIPSY, LASER LITHOTRIPSY, LEFT URETERAL STONE LEFT URETERAL STONE LEFT URETERAL STONE BASKE,T LEFT STENT BASKE,T LEFT STENT BASKE,T LEFT STENT REMOVAL, LEFT URETERAL REMOVAL, LEFT URETERAL REMOVAL, LEFT URETERAL STENT REPLACEMENT, LEFT STENT REPLACEMENT, LEFT STENT REPLACEMENT, LEFT NEPHROSCOPY NEPHROSCOPY NEPHROSCOPY Primary Procedure Yes No No Primary Surgeon CHAR WALLACE, Sae CONTRERAS MD, Sae CONTRERAS MD, Sae Juarez Start 04/22/24 16:58:00 04/22/24 16:58:00 04/22/24 16:58:00 Stop 04/22/24 18:13:00 04/22/24 18:13:00 04/22/24 18:13:00 Anesthesia Type General General General Surgical Service Urology Urology Urology Wound Class 2 - Clean-Contaminated 2 - Clean-Contaminated 2 - Clean-Contaminated Last Modified By: Abraham Vraner Terry T Sweene, Terry T 04/22/24 18:19:21 04/22/24 18:19:21 04/22/24 18:19:21 General Case Data FT Pre-Care Text: Classifies surgical wound, implements aseptic technique, initiates traffic control Entry 1 Case Information OR OR 1 FT Case Level Level 3 Wound Class 2 - Clean-Contaminated Specialty Urology ASA Class 3 Preop Diagnosis LEFT KIDNEY STONE Postop Same As Preop Yes Postop Diagnosis LEFT KIDNEY STONE Outcomes Met? Yes Last Modified By: Abraham Varner 04/22/24 17:17:17 Post-Care Text: The patient is free from signs and symptoms of infection Skin Assessment (Pre Procedure) FT Pre-Care Text: Implements protective measures to prevent skin/ tissue injury due to thermal or mechanical sources Evaluates for signs and symptoms of physical injury to skin and tissue Entry 1 Skin Integrity Intact, [place], Warm, & Skin Abnormality No Dry Outcomes Met? Yes Last Modified By: Abraham Varner 04/22/24 17:17:27 Post-Care Text: The patient is free from signs and symptoms of injury caused by extraneous objects Patient Positioning FT Pre-Care Text: Identifies physical alterations that require additional precautions for procedure-specific positioning, verifies presence of prosthetics or corrective devices, positions the patient, evaluates the patient for signs and symptoms of injury as a result of positioning Entry 1 Procedure CYSTOSCOPY Body Position Low Lithotomy URETEROSCOPY(Left) Feet Uncrossed? Yes Left Arm Position Resting at Side Right Arm Position Resting at Side Left Leg Position Secured in Stirrup Right Leg Position Secured in Stirrup Positioning Device Safety Strap, Stirrups Yellow Fins, Pillow Under Head Large Press Points Checked Yes By Abraham Varner, Shakeel Kc CST, Gower CAA, John C. Outcomes Met? Yes Last Modified By: Abraham Varner 04/22/24 17:18:05 Post-Care Text: The patient is free from signs and symptoms of injury related to positioning Patient Care Devices FT Pre-Care Text: Implements protective measures to prevent skin/ tissue injury due to thermal or mechanical sources Entry 1 Entry 2 Entry 3 Equipment Type C-ARM - bike technician needed EQUIPMENT LASER INTELLICART SUCTION UNIT Equipment Number [id number] 1 Equipment Setting 255 MM HG Outcomes Met? Yes Yes Yes Last Modified By: Abraham Varner Terry T Sweene, Terry T 04/22/24 17:20:29 04/22/24 17:20:29 04/22/24 17:20:29 Entry 4 Entry 5 Entry 6 Equipment Type MISTRAL FORCED AIR MONITOR CHARGE SURGERY PADDED STIRRUPS WARMING SYSTEM UNIT Equipment Number [id number] Equipment Setting 43 C Outcomes Met? Yes Yes Yes Last Modified By: Abraham Varner Terry T Sweene, Terry T 04/22/24 17:20:29 04/22/24 17:20:29 04/22/24 17:20:29 Entry 7 Entry 8 Equipment Type VENA FLOW UNIT VIDEO SYSTEM Equipment Number Equipment Setting Outcomes Met? Yes Yes Last Modified By: Abraham Varner Terry T 04/22/24 17:20:29 04/22/24 17:20:29 Post-Care Text: The patient is free from signs and symptoms of injury caused by extraneous objects Transport To OR FT Pre-Care Text: Transports according to individual needs. Evaluates for signs and symptoms of skin and tissue injury as a result of transfer or transport Entry 1 Via Cart By Abraham Varner Safety Precautions Side Rails Up Outcomes Met? Yes Last Modified By: Abraham Varner 04/22/24 17:20:37 Post-Care Text: The patient is free from signs and symptoms of injury related to transfer/transport Counts Verification FT Pre-Care Text: Performs required counts Entry 1 Procedure(s) CYSTOSCOPY Type Initial URETEROSCOPY(Left), CYSTOSCOPY W/ HOMIUM LASER(Left), CYSTOSCOPY STENT REMOVAL(Left) Items Instruments Status Correct Time 04/22/24 16:42:00 By Eloy Waite Outcomes Met? Yes Last Modified By: Abraham Varner 04/22/24 17:20:54 Post-Care Text: The patient is free from signs and symptoms of injury caused by extraneous objects Skin Prep FT Pre-Care Text: Performs skin preparations Entry 1 Procedure CYSTOSCOPY Prep Area perineum URETEROSCOPY(Left), CYSTOSCOPY W/ HOMIUM LASER(Left), CYSTOSCOPY STENT REMOVAL(Left) Prep Agents Betadine Solution Hair Removal Methods Not Indicated By Abraham Varner Outcomes Met? Yes Last Modified By: Abraham Varner 04/22/24 17:21:09 Post-Care Text: The patient is free from signs and symptoms of infection Departure From OR FT Pre-Care Text: Transports according to individual needs. Evaluates for signs and symptoms of skin and tissue injury as a result of transfer or transport. Entry 1 Via Cart Safety Precautions Side Rails Up PostOp Destination PACU Transported By Abraham Varner Patient Status Stable Skin. Condition Intact, [place], Warm, & Dry Airway Maintenance Oxygen in Use? Yes Airway Device Simple Mask Flow Rate 8 L Outcomes Met? Yes Last Modified By: Abraham Varner 04/22/24 18:41:05 Post-Care Text: The patient is free from signs and symptoms of injury related to transfer/transport General Comments: VERBAL AND WRITTEN REPORT GIVEN TO PACU NURSE. Rosas VARNER RN. Medication Administration FT Pre-Care Text: Verifies allergies, administers prescribed medications and solutions, administers prescribed antibiotic therapy and immunizing agents as ordered, evaluates response to medications Administers prescribed medications and solutions Entry 1 Route of Admin Field Expiration Date Yes Verified Ordered By Sae CONTRERAS MD Transcribed/To Abraham Varner Field By Administered By Sae CONTRERAS MD Outcomes Met? Yes Last Modified By: Abraham Varner 04/22/24 17:22:42 Post-Care Text: The patient received appropriate medication(s) safely administered during the perioperative period For [place]rack[place]verse please see scanned medication reconcilliation form for medications used at the field during the procedure. Implant Log FT Pre-Care Text: Records devices implanted during the operative or invasive procedure Entry 1 Procedure CYSTOSCOPY Implant/Explant Implant URETEROSCOPY(Left), CYSTOSCOPY W/ HOMIUM LASER(Left), CYSTOSCOPY STENT REMOVAL(Left) Implant Identification FT Description CASCADE URETERAL STENT Lot Number [id number] [employer] Catalog ???# [id number] Size 4.9 X 22-32 CM Expiration Date 04/08/28 Usage Data FT Implant Site Ureter L Quantity 1 Implanted By CHAR WALLACE, Sae Juarez Biological Implants Outcomes Met? Yes Last Modified By: Abraham Varner 04/22/24 17:33:51 Post-Care Text: The patient is free from signs and symptoms of injury caused by extraneous objects Cultures & Specimens FT Pre-Care Text: Manages specimen handling and disposition Manages culture specimen collection Entry 1 Cultures Ordered n/a Specimens Ordered Yes Frozen Section Times Outcomes Met? Yes Last Modified By: Abraham Varner 04/22/24 17:23:50 Post-Care Text: The patient is free from signs and symptoms of injury caused by extraneous objects The patient is free from signs and symptoms of infection General Comments: SPECIMEN - LEFT KIDNEY STONES FOR ANALYSIS. Rosas VARNER RN. Laser Data FT Entry 1 Start Time 04/22/24 17:03:00 Stop Time 04/22/24 17:34:00 Laser Type HOLMIUM LASER Pulses 322 Laser Mode Pulse Rucker 10 Kilojoules .322 Microscope Used? No Total Minutes Used 0 (from machine) Last Modified By: Abraham Varner 04/22/24 17:58:05 General Comments: TOTAL TIME USED 35 SECONDS. Laser Safety FT Pre-Care Text: Implements protective measures to prevent injury due to laser sources and evaluates for signs and symptoms of laser injury Entry 1 Laser Safety H2O or Saline on Field, Patient Eye Goggles Laser Caution Signs Protection Placed on All Doors, Laser Safe Instrumentation Utilized, Reviewed Specific Laser Safety Precautio, Rinse Prep Thoroughly From Surgical Site, Wet Towels & Sponges Used to Protect, Windows Covered Surgeon Eye None Room Personnel Eye None Protection Protection Outcomes Met? Yes Last Modified By: Abraham Varner 04/22/24 17:24:13 Post-Care Text: The patient is free from signs and symptoms of laser injury Temperature Control Entry 1 Temperature Control BLANKET MISTRAL AIR Quantity 1 Aid PLUS UPPER BODY Fluid/[place] Unit Mistral warming system Setting 43 C Body Site Upper anterior torso Comments M8 Last Modified By: Abraham Varner 04/22/24 17:24:39 Sign Out FT Entry 1 Before Patient Leaves OR Nurse verbally Yes Nurse verbally Yes confirms with the confirms with the team the name of team that the procedure(s) instrument, sponge, recorded and needle counts are correct (or N/A) Nurse verbally Yes Nurse verbally Yes confirms with the confirms with the team how the team whether there specimen is labeled are any equipment (including patient problems to be name), if applicable addressed Sign Out Complete 04/22/24 17:59:00 Last Modified By: Abraham Varner 04/22/24 17:59:37 Case Comments <None> Finalized By: Audra Meraz CST Document Signatures Signed By: Audra Meraz CST 04/23/24 13:32Abraham Varner 04/22/24 18:41 Audra Meraz CST 04/23/24 13:32 MAIN OR PREOPERATIVE RECORD Observed: 4:58 PM Status: F Source: [facility] Main OR Preoperative Record PreOp Document Type FT Summary Primary Physician: Sae CONTRERAS MD Finalized Date/Time: 04/22/24 18:41:24 Pt. Name: BANDAR COONEY./Sex: 1955 Male Med Rec #: [id number] Physician: Sae CONTRERAS MD Financial #: [id number] Pt. Type: A Room/Bed: [place] [address] Admit/Disch: 04/22/24 13:17:25 - Institution: Case Times PreOp FT Pre-Care Text: Verifies consent for planned procedure, identifies individual values and wishes concerning care, includes family members in perioperative teaching Entry 1 Patient Times. In Pre Surgery 04/22/24 13:30:00 Out Pre Surgery 04/22/24 16:40:00 Outcomes Met? Yes Last Modified By: Abraham Varner 04/22/24 18:41:22 Post-Care Text: The patient participates in decisions affecting his or her perioperative plan of care Finalized By: Abraham Varner Document Signatures Signed By: Abraham Varner 04/22/24 18:41 MAIN OR PACU II RECORD Observed: 024 4:58 PM Status: F Source: [facility] Main OR PACU II Record PACU Phase II Document Type FT Summary Primary Physician: Sae CONTRERAS MD Finalized Date/Time: 04/22/24 19:15:23 Pt. Name: BANDAR COONEY /Sex: 1955 Male Med Rec #: [id number] Physician: Sae CONTRERAS MD Financial #: [id number] Pt. Type: A Room/Bed: Admit/Disch: 04/22/24 13:17:25 - Institution: Case Times PACU II FT Pre-Care Text: Identifies barriers to communication and implements measures to provide psychological support and determines knowledge level Develops individualized plan of care, and ensures continuity of care Maintains patient's dignity and privacy, and maintains patient confidentiality Identifies and reports philosophical, cultural, and spiritual beliefs and values Identifies individual values and wishes concerning care administers prescribed antibiotic therapy and immunizing agents as ordered, Evaluates postoperative tissue perfusion Implements thermoregulation measures, and monitors body temperature Evaluates postoperative respiratory status Evaluates postoperative cardiac status Evaluates postoperative neurological status Assesses pain control, collaborated in initiating patient-controlled analgesia and implements alternative methods of pain control Verifies allergies, administers prescribed medications and solutions, evaluates response to medications Entry 1 In PACU II 04/22/24 18:50:00 Discharge from PACU 04/22/24 19:20:00 II Outcomes Met? Yes Last Modified By: Kayla Chaudhary RN 04/22/24 19:15:22 Post-Care Text: The patient demonstrates knowledge of the expected response to the operative or invasive procedure The patient's care is consistent with the individualized perioperative plan of care The patient's right to privacy is maintained The patient's value system, lifestyle, ethnicity, and culture are considered, respected, and incorporated into the perioperative plan of care The patient participates in decisions affecting his or her perioperative plan of care. The patient is free from signs and symptoms of infection The patient has wound/tissue perfusion consistent with or improved from baseline levels established preoperatively The patient is at or returning to normothermia at the conclusion of the immediate postoperative period The patient's respiratory function is consistent with or improved from baseline levels established preoperatively The patient's cardiovascular status is consistent with or improved from baseline levels established preoperatively The patient's neurological status is consistent with or improved from baseline levels established preoperatively The patient demonstrates and/or reports adequate pain control throughout the perioperative period The patient received appropriate medication(s), safely administered during the perioperative period Finalized By: Kayla Chaudhary RN Document Signatures Signed By: Kayla Chaudhary RN 04/22/24 19:15 MAIN OR PACU I RECORD Observed: 04/22/20 24 4:58 PM Status: F Source: [facility] Main OR PACU I Record PACU Phase I Document Type FT Summary Primary Physician: Sae CONTRERAS MD Finalized Date/Time: 04/22/24 18:54:06 Pt. Name: BANDAR COONEY/Sex: 1955 Male Med Rec #: [id number] Physician: Sae CONTRERAS MD Financial #: [id number] Pt. Type: A Room/Bed: [place] [address] Admit/Disch: 04/22/24 13:17:25 - Institution: Case Times PACU I FT Pre-Care Text: Identifies barriers to communication and implements measures to provide psychological support Develops individualized plan of care, and ensures continuity of care Maintains patient's dignity and privacy, and maintains patient confidentiality Identifies and reports philosophical, cultural, and spiritual beliefs and values Identifies individual values and wishes concerning care Implements aseptic technique, and administers prescribed antibiotic therapy and immunizing agents as ordered Evaluates postoperative tissue perfusion Implements thermoregulation measures, and monitors body temperature Evaluates postoperative respiratory status Evaluates postoperative cardiac status Evaluates postoperative neurological status Assesses pain control, collaborated in initiating patient-controlled analgesia and implements alternative methods of pain control Verifies allergies, administers prescribed medications and solutions, evaluates response to medications Entry 1 In PACU I 04/22/24 18:20:00 Discharge from PACU 04/22/24 18:50:00 I Outcomes Met? Yes Last Modified By: Susana Elaine RN 04/22/24 18:53:50 Post-Care Text: The patient demonstrates knowledge of the expected response to the operative or invasive procedure The patient's care is consistent with the individualized perioperative plan of care The patient's right to privacy is maintained The patient's value system, lifestyle, ethnicity, and culture are considered, respected, and incorporated into the perioperative plan of care The patient participates in decisions affecting his or her perioperative plan of care The patient is free from signs and symptoms of infection The patient has wound/tissue perfusion consistent with or improved from baseline levels established preoperatively The patient is at or returning to normothermia at the conclusion of the immediate postoperative period The patient's respiratory function is consistent with or improved from baseline levels established preoperatively The patient's cardiovascular status is consistent with or improved from baseline levels established preoperatively The patient's cardiovascular status is consistent with or improved from baseline levels established preoperatively The patient demonstrates and/or reports adequate pain control throughout the perioperative period The patient received appropriate medication(s), safely administered during the perioperative period Acuity Level PACU I FT Entry 1 Start Time 04/22/24 18:20:00 Stop Time 04/22/24 18:50:00 Acuity Level Acuity Level I Last Modified By: Susana Elaine RN 04/22/24 18:54:02 Finalized By: Susana Elaine RN Document Signatures Signed By: Susana Elaine RN 04/22/24 18:54 XR ABDOMEN 1 VIEW Observed: 04/22/2024 4:21 PM Status: F Source: [facility] Exam Date/Time: 04/22/2024 19:35 EDT Reason for Exam: Kidney stone Report IMPRESSION: Intraoperative imaging. EXAMINATION/TECHNIQUE: XR Abdomen 1 View HISTORY: Kidney stone. COMPARISON: 04/22/2024. RESULT: Fluoroscopy provided for surgical procedure. Air Kerma (Ka,r): 40.7 mGy. No diagnostic images. Please refer to performing provider note for further details. No other significant abnormality. Ordering Provider: Sae CONTRERAS FINAL REPORT Dictated: 04/24/2024 5:05 pm Cayden Kilpatrick MD Signed (Electronic Signature): 04/24/2024 5:05 pm Signed by: Cayden Kilpatrick MD Transcribed by: PAT Technologist: RUFINO Technical Comments Radiation Dose: Ka,r in mGy = 40.70 DAP = 3090.68 Fluoro Time: 152 PROGRESS NOTE-PHYSICIAN Observed: 2023 2:59 PM Status: F Source: [facility] Progress Note-Physician Patient: BANDAR COONEY Age: 68 years Sex: Male : 1955 Associated Diagnoses: None Author: Ferdinand Noe Jr., DO Preoperative Information Anesthesia Preop Info NPO since midnight Anesthesia history: Patient history: No prior anesthetic problems. Informed consent: Signed by patient. Re-evaluation prior to induction: Initial evaluation reviewed: No significant change. Health Status Allergies: Allergic Reactions (Selected) Mild Latex- Itch. Severity Not Documented Tape- Itching., Allergies (2) Active Severity Reaction Latex Mild Itch Tape Itching Current medications: (Selected) Inpatient Medications Ordered HYDROmorphone 1 mg/mL injectable solution: 0.4 mg = 0.4 mL, Injection, IV Push, q4min PRN Pain for 5 dose(s), Stop date Limited # of times, Routine, Start date 04/22/24 14:59:00 EDT, 04/22/24 14:59:00 EDT Lactated Ringers IV Ilene 1000 mL 1,000 mL: 1,000 mL, IV, 100 mL/hr, Routine, Start date 04/22/24 14:59:00 EDT, 10 hour(s), Total volume (mL): 1,000, 131.8 kg, 2.56, m2 Sodium Chloride 0.9% IV Ilene 1000 mL 1,000 mL: 1,000 mL, IV, 150 mL/hr, Routine, Start date 04/22/24 14:00:00 EDT, 6.7 hour(s), Total volume (mL): 1,000, 131.8 kg, 2.56, m2 Documented Medications Documented Novolin 70/30: 35 unit(s), SubCutaneous, BIDAC Ozempic: SubCutaneous, qWeek buPROPion 300 mg/24 hours ER Tab: 300 mg = 1 tab(s), Oral, Daily citalopram 40 mg Tab: 40 mg = 1 tab(s), Oral, Daily famotidine 20 mg Tab: 20 mg = 1 tab(s), Oral, Daily gabapentin 100 mg Cap: 100 mg = 1 cap(s), Oral, Daily losartan 50 mg Tab: 50 mg = 1 tab(s), Oral, Daily, High blood pressure simvastatin 40 mg Tab: 40 mg = 1 tab(s), Oral, Once a day (at bedtime), Home Medications (8) Active buPROPion 300 mg/24 hours ER Tab 300 mg = 1 tab(s), Oral, Daily citalopram 40 mg Tab 40 mg = 1 tab(s), Oral, Daily famotidine 20 mg Tab 20 mg = 1 tab(s), Oral, Daily gabapentin 100 mg Cap 100 mg = 1 cap(s), Oral, Daily losartan 50 mg Tab 50 mg = 1 tab(s), Oral, Daily Novolin 70/30 35 unit(s), SubCutaneous, BIDAC Ozempic , SubCutaneous, qWeek simvastatin 40 mg Tab 40 mg = 1 tab(s), Oral, Once a day (at bedtime) , Medications (3) Active Scheduled: (0) Continuous: (2) Lactated Ringers 1,000 mL 1,000 mL, IV, 100 mL/hr Sodium Chloride 0.9% 1,000 mL 1,000 mL, IV, 150 mL/hr PRN: (1) HYDROmorphone 1 mg/mL SOLN [F] 0.4 mg 0.4 mL, IV Push, q4min Problem list: All Problems Arthritis / SNOMED CT 0735704 / Confirmed Depression / SNOMED CT 63208795 / Confirmed Diabetes mellitus, type II / SNOMED CT 262118280 / Confirmed Erectile dysfunction / SNOMED CT 6519746814 / Confirmed Gall stone / SNOMED CT 279427481 / Confirmed Glaucoma / SNOMED CT 93381269 / Confirmed Gross hematuria / SNOMED CT 030850661 / Confirmed Head ache / SNOMED CT 40599076 / Confirmed Hyperlipidemia / SNOMED CT 08814595 / Confirmed Hypertension / SNOMED CT 7513546969 / Confirmed Kidney stone / SNOMED CT 857524828 / Confirmed Liver disease / SNOMED CT 071389922 / Confirmed Skin cancer / SNOMED CT 5558299171 / Confirmed Resolved: COVID / SNOMED CT 8380106074 Resolved: Pulmonary embolism / SNOMED CT 80872804 Histories Past Medical History: No active or resolved past medical history items have been selected or recorded. Procedure history: Cholecystectomy (95532062). Hemorrhoid (217196805). Colonoscopy (996901935). Procedure on back (985183454). Social History Social & Psychosocial Habits Alcohol 04/14/2024 Risk Assessment: Denies Alcohol Use Substance Abuse 04/14/2024 Risk Assessment: Denies Substance Abuse Tobacco 02/03/2024 Tobacco Use: Former smoker, quit more Smokeless tobacco use: Never Type: Cigarettes 04/14/2024 Risk Assessment: Denies Tobacco Use . Physical Examination Vital Signs 04/22/2024 13:54 EDT Heart Rate Monitored 76 bpm SpO2 95 % 04/22/2024 13:54 EDT Respiratory Rate 18 br/min Systolic Blood Pressure 134 mmHg Diastolic Blood Pressure 80 mmHg Blood Pressure Location Right arm Mean Arterial Pressure, Monitered 98 mmHg Airway: Mallampati classification: II (soft palate, fauces, uvula visible). Respiratory: Lungs are clear to auscultation, Respirations are non-labored. Cardiovascular: Regular rhythm. Review / Management Results review: Lab results 04/22/2024 14:02 EDT Glucose Cap 144 mg/dL HI POC Device SN [id number] POC User ID [id number] POC Username KAYLA CHAUDHARY 04/14/2024 12:48 EDT WBC 4.9 E9/L RBC 5.0 E12/L HGB 15.1 gm/dL Hct 44.3 % MCV 88.7 fL MCH 30.3 pg MCHC 34.2 gm/dL RDW 14.2 % Platelet 181.0 E9/L MPV 7.5 fL Neutro Auto 62.1 % Lymph Auto 22.0 % Thomas Auto 7.4 % Eos Auto 6.5 % Basophil Auto 2.0 % Neutro Absolute 3.1 E9/L Lymph Absolute 1.1 E9/L Thomas Absolute 0.4 E9/L Eos Absolute 0.3 E9/L Basophil Absolute 0.1 E9/L PT 11.0 second(s) INR 0.98 NA PTT 36.1 second(s) Glucose Lvl 124 mg/dL BUN 17 mg/dL Creatinine 1.2 mg/dL eGFR 66 mL/min/1.73 m2 BUN/Creat Ratio 14 Sodium Lvl 137 mmol/L Potassium Lvl 4.3 mmol/L Chloride 106 mmol/L CO2 24 mmol/L AGAP 11 mEq/L Calcium Lvl 9.2 mg/dL UA Spec Desc Clean Catch UA Color Light-[place] UA Clarity Turbid UA Spec Grav 1.019 UA pH 5.5 UA Protein 1+ mg/dL UA Glucose Negative mg/dL UA Ketones Negative mg/dL UA Bili Negative mg/dL UA Blood 3+ mg/dL UA Nitrite Negative mg/dL UA Urobilinogen Negative mg/dL UA Leuk Est 75 Ramya/uL Ramya/uL UA RBC >75 graded/HPF UA WBC 6-15 graded/HPF UA Mucous Trace graded/LPF Urine Culture NEG . Radiology results: * Final Report * Reason For Exam P.A.T. POWERSCRIBE REPORT IMPRESSION: NO EVIDENCE OF ACTIVE CHEST DISEASE. CLINICAL HISTORY: P.A.T.. COMPARISON: COMMENT: The heart is normal in size. The mediastinum is unremarkable. The lungs appear clear. No infiltration nor pleural effusion is evident. Ordering Provider: Petr Myers Signature Line FINAL REPORT Dictated: 04/14/2024 4:43 pm Philip Miranda M.D. Signed (Electronic Signature): 04/14/2024 4:43 pm Signed by: Philip Miranda M.D. Transcribed by: PAT Technologist: MARIO Technical Comments Radiation Dose: Ka,r in mGy = na DAP = na RAD REPORT This document has an image Result type: XR Chest 2 Views Result date: April 14, 2024 12:59 EDT Result status: Auth (Verified) Result title: XR Chest 2 Views Performed by: Philip Miranda M.D. on April 14, 2024 16:43 EDT Verified by: Philip Miranda M.D. on April 14, 2024 16:43 EDT Encounter info: [id number], [facility], Outpatient, 04/14/2024 - 04/14/2024 . ECG interpretation: Normal sinus rhythm. Plan [place] [employer] (ASA) physical status classification: Class III. Anesthetic Preoperative Plan: Anesthesia General. Result Comment: Electronical ly Signed By: Ferdinand Noe Jr., DO\Date and Time Signed: 04/22/24 15:02 EDT CAPILLARY GLUCOSE POC Collected: 04/22/2024 2:02 PM Status: F Source: [facility] TYPE CODE TESTS RESULT OUT OF RANGE REFERENCE UNITS LAB 2340-8(LOINC) GLUCOSE:MCNC: PT:BLD:SEMIQN :TEST STRIP.AUTOMAT ED 144 High 55-99 mg/dL Result Comment: Cleaned Mete r No Coverage Given Performed By: #### [id number] #### [facility] [address] [place] [address] XR ABDOMEN 1 VIEW Observed: 04/22/2024 1:23 PM Status: F Source: [facility] Exam Date/Time: 04/22/2024 13:33 EDT Reason for Exam: Kidney stone Report IMPRESSION: DOUBLE-J URETERAL STENT. CLINICAL HISTORY: Kidney stone COMPARISON: NONE. FINDINGS: Left double-J ureteral stent identified with cephalad portion coiled in renal collecting system left kidney and caudal portion coiled in region of urinary bladder. Phleboliths identified. No renal/ureteral calcifications visualized. Gas and stool in colon. No focal or diffuse small bowel dilatation or mass effect. Marginal osteophytes lumbar spine. Ordering Provider: Sae CONTRERAS FINAL REPORT Dictated: 04/22/2024 2:42 pm Signer Kennedy WALLACE Signed (Electronic Signature): 04/22/2024 2:42 pm Signed by: Kennedy Foote MD Transcribed by: PAT Technologist: ORALIA Technical Comments Radiation Dose: Ka,r in mGy = na DAP = na XR CHEST 2 VIEWS Observed: 04/14/2024 12:53 PM Status: F Source: [facility] Exam Date/Time: 04/14/2024 12:59 EDT Reason for Exam: P.A.T. Report IMPRESSION: NO EVIDENCE OF ACTIVE CHEST DISEASE. CLINICAL HISTORY: P.A.T.. COMPARISON: COMMENT: The heart is normal in size. The mediastinum is unremarkable. The lungs appear clear. No infiltration nor pleural effusion is evident. Ordering Provider: Petr Myers FINAL REPORT Dictated: 04/14/2024 4:43 pm Philip Miranda M.D. Signed (Electronic Signature): 04/14/2024 4:43 pm Signed by: Philip Miranda M.D. Transcribed by: PAT Technologist: MARIO Technical Comments Radiation Dose: Ka,r in mGy = na DAP = na BMP Collected: 12:48 PM Status: F Source: [facility] TYPE CODE TESTS RESULT OUT OF RANGE REFERENCE UNITS LAB 2345-7(LOINC) GLUCOSE:MCNC :PT:SER/PLAS :QN: 124 Normal 55-199 mg/dL LAB 3094-0(LOINC) UREA NITROGEN:MCN C:PT:SER/NOE S:QN: 17 Normal 5-21 mg/dL LAB 2160-0([facility]) CREATININE:M CNC:PT:SER/P LAS:QN: 1.2 Normal 0.5-1.3 mg/dL LAB 3097-3([facility]) UREA NITROGEN/CRE ATININE:MRTO :PT:SER/PLAS :QN: 14 Normal 10-20 No Units LAB 64182-3([facility]) CALCIUM:MCNC :PT:SER/PLAS :QN: 9.2 Normal 8.9-11.1 mg/dL LAB 2951-2([facility]) SODIUM:SCNC: PT:SER/PLAS: QN: 137 Normal 135-145 mmol/L LAB 2823-3([facility]) POTASSIUM:SC NC:PT:SER/PL :QN: 4.3 Normal 3.5-5.3 mmol/L LAB 2075-0([facility]) CHLORIDE:SCN C:PT:SER/NOE S:QN: 106 Normal 101-111 mmol/L LAB 8-9([facility]) CARBON DIOXIDE:SCNC :PT:SER/PLAS :QN: 24 Normal 21-31 mmol/L LAB 62572-0([facility]) ANION GAP:SCNC:PT: SER/PLAS:QN: 11 Normal 6-16 mEq/L Performed By: #### [id number] # ### [facility] [address] [place] [address] PT & PTT Collected: 4 12:48 PM Status: F Source: [facility] TYPE CODE TESTS RESULT OUT OF RANGE REFERENCE UNITS LAB 5902-2([facility]) COAGULATION TISSUE FACTOR INDUCED:TIME:P T:PPP:QN:COAG 11.0 Normal 9.4-12.5 second(s ) Result Comment: 15 days - 4 weeks 1 - 5 months 6 -11 months 1-5 years 6-10 years 11 -17 years Mean: 11.2 (9.5-12.6) Mean: 11.0 (9.7-12.8) Mean: 11.0 (9.8-13.0) Mean: 11.3 (9.9-13.4) Mean: 11.7 (10.0-14.6) Mean: 11.8 (10.0 - 14.1) Pediatric Reference ranges were obtained from a study by Bertram Harman et al. prepared from 1437 samples obtained at 7 different centers using the same coagulation reagent and instrumentation as [facility]. Currently there are no coagulation studies available worldwide for children to 14 days, and no normal ranges. LAB 41796-5([facility]) COAGULATION SURFACE INDUCED:TIME:P T:PPP:QN:COAG 36.1 Normal 25.1-36.5 second(s ) Result Comment: Parameter 15 days - 4 weeks 1 - 5 months 6 - 11 months 1 - 5 years 6 - 10 years 11 - 17 years PTT Mean: 35.4 (27.6-45.6) Mean: 33.5 (24.8-40.7) Mean: 32.4 (25.1-40.7) Mean: 31.6 (24.0-39.2) Mean: 31.6 (26.9-38.7) Mean: 31.0 (24.6-38.4) Pediatric Reference ranges were obtained from a study by Bertram Harman et al. prepared from 1437 samples obtained at 7 different centers using the same coagulation reagent and instrumentation as [facility]. Currently there are no coagulation studies available worldwide for children to 14 days, and no normal ranges. Heparin therapeutic range (represented by Anti-Factor Xa activity of 0.2 - 0.4 U/mL) corresponds to PTT of 56.6 - 109.0 sec. LAB 6301-6([facility]) COAGULATION TISSUE FACTOR INDUCED.INR:RE LTIME:PT:PPP:Q N:COAG 0.98 Unknown Result Comment: INR results are specifically intended to assess patients stabilized on long-term Anticoagulation therapy suggested INR?s ?Less Intensive Anticoagulation? 2.0 ? 3.0 Conventional Range 3.0 ? 4.5 Performed By: #### [id number] #### [facility] [address] [place] [address] UA WITH CULT RFLX Collected: 4 12:48 PM Status: F Source: [facility] TYPE CODE TESTS RESULT OUT OF RANGE REFERENCE UNITS LAB 9194-2([facility]) CLASS:TYPE:PT: URINE COLLECTION METHOD:NOM:* Clean Catch Normal LAB 10864-7([facility]) COLOR:TYPE:PT: URINE:NOM:AUTO Light-Orang e Abnormal Yellow Result Comment: Microscopic readings are only performed on those samples that meet specific criteria set forth by [facility]. LAB 01677-7([facility]) CLARITY:TYPE:P T:URINE:NOM: Turbid Abnormal Clear LAB 5811-5([facility]) SPECIFIC GRAVITY:RDEN:P T:URINE:SEMIQN :TEST STRIP 1.019 Unknown 1.005-1.030 LAB 5803-2([facility]) PH:LSCNC:PT:UR INE:SEMIQN:SHERINE T STRIP 5.5 Unknown 5.0-9.0 LAB 28944-2([facility]) PROTEIN:PRTHR: PT:URINE:ORD:T EST STRIP 1+ Abnormal Negative mg/dL LAB 41797-7([facility]) GLUCOSE:PRTHR: PT:URINE:ORD:T EST STRIP Negative Normal Negative mg/dL LAB 93438-1([facility]) KETONES:PRTHR: PT:URINE:ORD:T EST STRIP.AUTOMATE D Negative Normal Negative mg/dL LAB 57072-2([facility]) BILIRUBIN:PRTH R:PT:URINE:ORD :TEST STRIP.AUTOMATE D Negative Normal Negative mg/dL LAB 75299-0([facility]) HEMOGLOBIN:MCN C:PT:URINE:SRINIVASAN IQN:TEST STRIP.AUTOMATE D 3+ Abnormal Negative mg/dL LAB 02879-0([facility]) NITRITE:PRTHR: PT:URINE:ORD:T EST STRIP.AUTOMATE D Negative Normal Negative mg/dL LAB 10874-6([facility]) UROBILINOGEN:M CNC:PT:URINE:S EMIQN:TEST STRIP Negative Normal Negative mg/dL LAB 45228-6([facility]) LEUKOCYTE ESTERASE:PRTHR :PT:URINE:ORD: TEST STRIP.AUTOMATE D 75 Ramya/uL Abnormal Negative CD:[phone] [id number] LAB 87292-1([facility]) LEUKOCYTES:JOSEPHINE IC:PT:URINE SED:QN:AUTOMAT ED COUNT 6-15 Abnormal 0-5 CD:84781 02118 LAB 17867-8(INC) ERYTHROCYTES:P RTHR:PT:URINE SED:ORD:MICROS COPY.LIGHT >75 Abnormal 0-3 CD:[phone] LAB 09882-0(INC) MUCUS:PRTHR:PT :URINE:ORD:AUT OMATED Trace Normal Negative CD:[phone] 49777 Performed By: #### [id number] #### [facility] [address] [place] [address] CBC W/ AUTO DIFF Collected: 04/14/2024 12:48 PM Stat us: F Source: [facility] TYPE CODE TESTS RESULT OUT OF RANGE REFERENCE UNITS LAB 94873-4([facility]) LEUKOCYTES^^OBDULIO ECTED FOR NUCLEATED ERYTHROCYTES:NCN C:PT:BLD:QN:AUTO MATED COUNT 4.9 Normal 4.0-11.0 E9/L LAB 789-8(INC) ERYTHROCYTES:NCN C:PT:BLD:QN:AUTO MATED COUNT 5.0 Normal 4.3-5.9 E12/L LAB 718-7([facility]) HEMOGLOBIN:MCNC: PT:BLD:QN: 15.1 Normal 13.5-17.5 gm/dL LAB 4544-3(INC) HEMATOCRIT:VFR:P T:BLD:QN:AUTOMAT ED COUNT 44.3 Normal 37.7-49.0 % LAB 788-0([facility]) ERYTHROCYTE DISTRIBUTION WIDTH:RATIO:PT:R BC:QN:AUTOMATED COUNT 14.2 Normal 10.9-14.2 % LAB 785-6([facility]) ERYTHROCYTE MEAN CORPUSCULAR HEMOGLOBIN:ENTMA SS:PT:RBC:QN:AUT OMATED COUNT 30.3 Normal 27.0-34.0 pg LAB 786-4([facility]) ERYTHROCYTE MEAN CORPUSCULAR HEMOGLOBIN CONCENTRATION:MC NC:PT:RBC:QN:AUT OMATED COUNT 34.2 Normal 31.4-36.0 gm/dL LAB 787-2([facility]) ERYTHROCYTE MEAN CORPUSCULAR VOLUME:ENTVOL:PT :RBC:QN:AUTOMATE D COUNT 88.7 Normal 80.0-100.0 fL LAB 63200-5([facility]) PLATELET MEAN VOLUME:ENTVOL:PT :BLD:QN:AUTOMATE D COUNT 7.5 Normal 6.4-10.8 fL LAB 08193810(INC) Platelet 181.0 Normal 150.0-500.0 E9/ L LAB 45957-6([facility]) NEUTROPHILS/100 LEUKOCYTES:NFR:P T:BLD:QN: 62.1 Normal 36.0-75.0 % LAB 731-0([facility]) LYMPHOCYTES:NCNC :PT:BLD:QN:AUTOM ATED COUNT 22.0 Normal 14.0-50.0 % LAB 742-7([facility]) MONOCYTES:NCNC:P T:BLD:QN:AUTOMAT ED COUNT 0.4 Normal 0.2-1.0 E9/L LAB 713-8([facility]) EOSINOPHILS/100 LEUKOCYTES:NFR:P T:BLD:QN:AUTOMAT ED COUNT 6.5 Normal 0.0-8.0 % LAB 704-7([facility]) BASOPHILS:NCNC:P T:BLD:QN:AUTOMAT ED COUNT 2.0 Normal 0.0-2.0 % LAB 751-8([facility]) NEUTROPHILS:NCNC :PT:BLD:QN:AUTOM ATED COUNT 3.1 Normal 2.0-7.5 E9/L LAB 96196-3([facility]) LYMPHOCYTES:NCNC :PT:BLD:QN: 1.1 Normal 1.0-4.0 E9/L LAB 10412-4([facility]) EOSINOPHILS:NCNC :PT:BLD:QN: 0.3 Normal 0.0-0.5 E9/L LAB 10934-2([facility]) BASOPHILS/LEUKOC YTES:NFR.DF:PT:B LD:QN:AUTOMATED COUNT 0.1 Normal 0.0-0.2 E9/L Performed By: #### [id number] # ### [facility] [address] [place] [address] EGFR Collected: 12:48 PM Status: F Source: [facility] TYPE CODE TESTS RESULT OUT OF RANGE REFERENCE UNITS LAB 05710752([facility]) eGFR 66 Normal >=59 mL/min/1 .7 3 m2 Performed By: #### [id number] #### [facility] [address] [place] [address] C URINE Observed: 04/14/2024 12:48 PM Status: F Source: [facility] Microbiology PROCEDURE: Urine Culture [R1] SOURCE: U CleanCatch BODY SITE: COLLECTED DATE/TIME: 04/14/2024 12:48 EDT RECEIVED DATE/TIME: 04/14/2024 15:13 EDT START DATE/TIME: 04/14/2024 15:13 EDT FREE TEXT SOURCE: Louis WALLACE, Petr Myers MD, Petr Morin FINAL REPORTS Final Report [] Verified Date/Time: 04/16/2024 11:02 EDT 200 cfu/ml Mixed skin contaminants Performing Locations R1: This test was performed at: [facility], [address] [place] [address], [address] , [place], Performed By: #### [id number] # ### [facility] [address] [place] [address] US RETROPERITONEAL LIMITED Observed: 06/2023 1:46 PM Status: COMPLETED Source: [facility] US RETROPERITONEAL LIMITED HISTORY: A 68-year-old male with the history of the left renal calculus. Lithotripsy done. TECHNIQUE: Multiple real-time images of both kidneys are obtained. Color Doppler study is performed. COMPARISON: Comparison is made with the renal ultrasound examination of 02/14/[address] scan of the abdomen and pelvis of 02/20/2019. FINDINGS: Both kidneys are normal in position and configuration. Right kidney measures 11.6 x 6.2 x 5.8 cm. Right renal cortical thickness measures 7 mm. Left kidney measures 13.8 x 7.0 x 5.2 cm. Left renal cortical thickness measures 7 mm. There are echogenic foci in the left kidney consistent with calculi. There is no evidence of hydronephrosis in the either kidney. No cystic or solid renal mass is identified. No perinephric fluid collection is identified. IMPRESSION: * There are small echogenic calculi in the left kidney. No evidence of hydronephrosis in the either kidney. * No evidence of cystic or solid renal mass. Finalized by Christopher Galindo MD on 03/24/2024 7:45 PM L Observed: 02/25/2024 8:28 AM Status: F Source: [facility] Specimen: [id number] Received: 02/25/24 Status: BESSIE Argueta Num: [id number] Spec Type: Surgical Subm Dr: Marine Friend DO Tissues: A Small Intestine - Biopsy/Polyp (SMALL BOWEL BX R/O CELIAC) B GASTRIC FOR HP (GASTRIC R/O H PYLORI) C Stomach - Biopsy/Polyp (GE JUNCTION R/O BARRETTS) Procedures: HE/6, Gross/Micro L4/3, H PYLORI Age/ Patient Sex Location Account Attending Physician IvetBandar W 68/M [id number] Marine Friend DO SPEC NUM: [id number] RECD: 02/25/24 STATUS: BESSIE ARGUETA NUM: [id number] HÉCTOR: 02/25/[address]: Marine Friend DO ENTERED: 02/25/24 [facility] DR: SPEC TYPE: Surgical DEPT: S ENTERED BY: [id number] RECV BY: [id number] ORDERED: HE/6, Gross/Micro L4/3, H PYLORI ORDERED: HE/6, Gross/Micro L4/3, H PYLORI Pathological Diagnosis A. Small bowel, biopsy: No significant pathologic abnormality. B. Gastric Biopsy: Chronic Inactive Gastritis. Immunostain is Negative For H. Pylori Organisms. C. Gastroesophageal junction, biopsy: Reflux-type changes. Negative for intestinal metaplasia. Clinical Information Dysphagia Gross Description Part A is received in formalin with the patient's name and biopsy small bowel and consists of 2 miguel soft tissue fragment ranging in size from 0.2 and 0.3 cm. The specimen is entirely submitted in cassette A1. Part B is received in formalin with the patient's name and gastric and consists of 3 miguel soft tissue fragment ranging in size from 0.2 to 0.4 cm. The specimen is entirely submitted in cassette B1. Part C is received in formalin with the patient's name and GE junction and consists of 2 ----- ------- Specimen: [id number] Received: 02/25/24 Status: BESSIE Argueta Num: [id number] Spec Type: Surgical Subm Dr: Marine Friend DO Tissues: A Small Intestine - Biopsy/Polyp (SMALL BOWEL BX R/O CELIAC) B GASTRIC FOR HP (GASTRIC R/O H PYLORI) C Stomach - Biopsy/Polyp (GE JUNCTION R/O BARRETTS) Procedures: HE/6, Gross/Micro L4/3, H PYLORI ----- ------- Patient: Bandar Cooney [id number] (Continued) ----- ------- Specimen: [id number] Received: 02/25/24 (Continued) Gross Description (Continued) Signed (signature on file) Justo Deluna MD 03/02/24 1510 ----- ------- Specimen: [id number] Received: 02/25/24 Status: BESSIE Argueta Num: [id number] Spec Type: Surgical Subm Dr: Marine Friend DO Tissues: A Small Intestine - Biopsy/Polyp (SMALL BOWEL BX R/O CELIAC) B GASTRIC FOR HP (GASTRIC R/O H PYLORI) C Stomach - Biopsy/Polyp (GE JUNCTION R/O BARRETTS) Procedures: HE/6, Gross/Micro L4/3, H PYLORI ----- ------- Patient: Bandar Cooney [id number] (Continued) ----- ------- Specimen: [id number] Received: 02/25/24-1310 (Continued) Gross Description (Continued) miguel soft tissue fragment ranging in size from 0.2 to 0.3 cm. The specimen is entirely submitted in cassette C1. CPT Codes [id number] ----- ------- ----- ------- Specimen: [id number] Received: 02/25/24 Status: BESSIE Argueta Num: [id number] Spec Type: Surgical Subm Dr: Marine Friend DO Tissues: A Small Intestine - Biopsy/Polyp (SMALL BOWEL BX R/O CELIAC) B GASTRIC FOR HP (GASTRIC R/O H PYLORI) C Stomach - Biopsy/Polyp (GE JUNCTION R/O BARRETTS) Procedures: HE/6, Gross/Micro L4/3, H PYLORI ----- ------- Patient: Bandar Cooney [id number] (Continued) ----- ------- Signed (signature on file) Justo Deluna MD 03/02/24 1510 GLUCOSE POCT GLUCOMETERS Collected: 02/25/2024 6:54 A M Status: F Source: [facility] TYPE CODE TESTS RESULT OUT OF RANGE REFERENCE UNITS LAB GLUPOC Glucose Poc Glucometers 159 mg/dL Result Comment: Random Gluco se Reference Range is dependent on time and content of last meal. Glucose of more than 200 mg/dL in a nonstressed, ambulatory subject supports the diagnosis of Diabetes Mellitus. PERFORMED BY: [facility] [place] [address] PATHOLOGIST SEAL EXTRUSION OPERATOR AYLIN SANDOVAL M.D. Performed By: #### GLULS ### # Point of Care testing , RETROPERITONEAL COMPLETE Observed: 02/14/2024 12:39 PM Status: COMPLETED Source: [facility] US RETROPERITONEAL COMPLETE ULTRASOUND RETROPERITONEUM INDICATION: Kidney stones. COMPARISON: 10/31/2016. FINDINGS: Ultrasound evaluation of the kidneys and bladder was performed. Right kidney: 11 cm in maximal length. No collecting system dilatation, calculi, or contour deforming mass lesion. Left kidney: 13.1 cm in maximal length. Several renal calculi largest 8 mm, no collecting system dilatation. No renal mass. Bladder: Unremarkable fluid filled bladder. Bladder volume: 61 mL. Both ureteral jets seen. Visualized liver demonstrates increased echogenicity suggesting hepatic steatosis. IMPRESSION: 1. Nonobstructive left renal stones. 2. Findings of hepatic steatosis Finalized by Raffaele North MD on 02/17/2024 1:34 PM XR CHEST 2 VWS Observed: 02/10/2024 1:31 PM Status: COMPLETED Source: [facility] XR CHEST 2 VWS XR CHEST 2 VWS HISTORY: Anesthesia clearance, preadmission testing, tobacco use COMPARISON: Chest x-rays 02/05/2019 and 05/14/2019 FINDINGS: PA and lateral upright films obtained. The cardiomediastinal silhouette is within normal limits. Prominent interstitial lung markings bilaterally, chronic. No pneumothorax or pleural effusion. No consolidation. Degenerative changes of the thoracic spine. IMPRESSION: * No acute cardiopulmonary process. Approved by Lv Covarrubias MD on 02/11/2024 8:35 AM IVenkata have personally reviewed the image(s) and agree with and/or edited the report Finalized by Venkata Wray on 02/11/2024 9:47 AM CBC AND AUTO DIFF Collected: 02/10/2024 1:18 PM Status: COMPLETED Source: [facility] TYPE CODE TESTS RESULT OUT OF RANGE REFERENCE UNITS LAB WBC(LOINC) WBC COUNT 5.0 4.0-11.0 X10E9/L LAB RBC(LOINC) RBC COUNT 5.29 4.10-5.70 X10E12/L LAB HGB(LOINC) HEMOGLOBIN 15.9 13.0-17.0 g/dL LAB HCT(LOINC) HEMATOCRIT 46.7 39-49 % LAB MCV(LOINC) MCV 88 80-100 fL LAB MCH(LOINC) MCH 30.0 27-34 pg LAB MCHC(LOINC) MCHC 34.0 32-36 g/dL LAB RDW(LOINC) RDW 14.2 11.5-15.0 % LAB PLTC(LOINC) PLATELET COUNT 198 150-450 X10E9 /L LAB MPV(LOINC) MPV 7.4 7-12 fL LAB NEUT(LOINC) % NEUTROPHILS 61.6 % LAB LYMP(LOINC) % LYMPHOCYTES 23.5 % LAB MONO(LOINC) % MONOCYTES 7.3 % LAB EOS(LOINC) % EOSINOPHILS 6.2 % LAB BASO(LOINC) % BASOPHILS 1.4 % LAB ANEUT(LOINC) ABSOLUTE NEUTROPHIL 3.1 1.5-6.6 X10E9/L LAB ALYMP(LOINC) ABSOLUTE LYMPHOCYTE 1.2 1.0-3.5 X10E9/L LAB AMONO(LOINC) ABSOLUTE MONOCYTE 0.4 0-0.9 X10E9/L LAB AEOS(LOINC) ABSOLUTE EOSINOPHIL 0.3 0.0-0.4 X10E9/L LAB ABASO(LOINC) ABSOLUTE BASOPHIL 0.1 0.0-0.2 X10E9/L Performed By: #### NORBERTO SILVA, 40502-1, ELEC, 3094-0, VEGETABLE CANNER #### [facility] ([id number]) [address] [place] [id number] PROTIME AND INR Collected: 02/10/2024 1:18 PM Status: COMPLETED Source: [facility] TYPE CODE TESTS RESULT OUT OF RANGE REFERENCE UNITS LAB PROX(LOINC) PROTIME 11.6 9.8-13.2 sec Result Comment: NEW REFERENC E RANGE LAB INR(LOINC) INR 1.0 0.8-1.1 Performed By: #### NORBERTO SILVA, 39551-3, ELEC, 3094-0, VEGETABLE CANNER #### [facility] ([id number]) [address] [place] [id number] APTT Collected: 02/10/2024 1:18 PM S tatus: COMPLETED Source: [facility] TYPE CODE TESTS RESULT OUT OF RANGE REFERENCE UNITS LAB PTT(LOINC) APTT 36 26-37 sec Result Comment: NEW REFERENC E RANGE Performed By: #### NORBERTO SILVA R, 79289-2, ELEC, 3094-0, VEGETABLE CANNER #### [facility] ([id number]) [address] [place] [address] ELECTROLYTES Collected: 02/10/2024 1:18 PM S tatus: COMPLETED Source: [facility] TYPE CODE TESTS RESULT OUT OF RANGE REFERENCE UNITS LAB NA(LOINC) SODIUM 134 134-146 mmol/L LAB K(LOINC) POTASSIUM 4.1 3.5-5.0 mmol/L LAB CL(LOINC) CHLORIDE 106 98-109 mmol/L LAB CO2(LOINC) CARBON DIOXIDE 22 22-32 mmol/L LAB AGAP(LOINC) ANION GAP 6 5-15 mmol/L Performed By: #### NORBERTO SILVA, 40954-4, ELEC, 3094-0, VEGETABLE CANNER #### [facility] ([id number]) [address] [place] [address] BLOOD UREA NITROGEN Collected: 02/10/2024 1:18 PM Status: COMPLETED Source: [facility] TYPE CODE TESTS RESULT OUT OF RANGE REFERENCE UNITS LAB BUN(LOINC) BLOOD UREA NITROGEN 21 5-27 mg/dL Performed By: #### NORBERTO SILVA R, 35690-8, ELEC, 3094-0, VEGETABLE CANNER #### [facility] ([id number]) [address] [place] [address] CREATININE Collected: 02/10/2024 1:18 PM S tatus: COMPLETED Source: [facility] TYPE CODE TESTS RESULT OUT OF RANGE REFERENCE UNITS LAB CRET(LOINC) CREATININE 1.16 0.70-1.20 mg/dL Result Comment: METHOD TRACE ABLE TO IDMS STANDARD LAB EGFR(LOINC) eGFR (CKD-EPI) NON-RACE DEPENDENT 69 >59 ml/min/1. 73sq.m Result Comment: Reported eGFR is based on the CKD-EPI 2020 equation that does not use a race coefficient. Performed By: #### NORBERTO SILVA R, 16385-1, ELEC, 3094-0, VEGETABLE CANNER #### [facility] ([id number]) [address] [place] [address], [place] [address] AMBULATORY VISIT SUMMARY Observed: 02/02 9:07 AM Status: F Source: [facility] Ambulatory Visit Summary BANDAR COONEY :1955 Visit Date:02/03/2024 Ambulatory Visit Instructions Your Diagnosis Kidney stone Tests Performed US Renal -- Results Pending -- XR Abdomen 1 View -- Results Pending -- XR Chest 2 Views -- Results Pending -- Please visit your patient portal for your results or contact your primary care physician. Your Care Team Attending Physician - Sae CONTRERAS MD Primary Care Physician - JENNA WALLACE, KATRINA Camacho Referring Physician - KATRINA WEST MD This Is Your Medications List Contact prescribing physician if questions or concerns busPIRone gabapentin (gabapentin 100 mg Cap) insulin isophane-insulin regular (Novolin 70/30) losartan (losartan 50 mg Tab) metformin potassium citrate (potassium CITRATE 10 mEq ER Tab) semaglutide (Ozempic) simvastatin (simvastatin 40 mg Tab) Procedures Performed Cholecystectomy, Colonoscopy, Hemorrhoid, Hernia, Procedure on back. Discharge Vitals Height 180 cm Height 71 in Weight 134.6 kg Weight 296.12 lb BMI 41.54 What to do next You Need to Schedule the Following Appointments Follow Up with CHAR WALLACE, Sae Juarez, URL When: Comments: get [place] then schedule stone procedure Where: [address] [place] [id number] Medications What How Much When Instructions Unchanged busPIRone By Mouth 2 times a day Contact prescribing physician if questions or concerns Unchanged gabapentin (gabapentin 100 mg Cap) 1 Capsules Contact prescribing physician if questions or concerns Unchanged insulin isophane-insulin regular (Novolin 70/ 30) Subcutaneous Contact prescribing physician if questions or concerns Unchanged losartan (losartan 50 mg Tab) By Mouth Every day Contact prescribing physician if questions or concerns Unchanged metformin By Mouth Contact prescribing physician if questions or concerns Unchanged potassium citrate (potassium CITRATE 10 mEq ER Tab) 1 Tablets Contact prescribing physician if questions or concerns Unchanged semaglutide (Ozempic) Subcutaneous Every week Contact prescribing physician if questions or concerns Unchanged simvastatin (simvastatin 40 mg Tab) By Mouth Once a day (at bedtime) Contact prescribing physician if questions or concerns Allergies Latex (Itch) No Known Medication Allergies Problems Ongoing - Any problem that you are currently receiving treatment for. Arthritis Depression Diabetes mellitus, type II Erectile dysfunction Gall stone Glaucoma Gross hematuria Head ache Hyperlipidemia Hypertension Kidney stone Liver disease Skin cancer Patient Survey You may receive a survey via text or e-mail asking about your office visit. Please share your experience with us by completing your survey. We appreciate your feedback and thank you for choosing us for your care. Education Materials Lithotripsy, Care After This sheet gives you information about how to care for yourself after your procedure. Your health care provider may also give you more specific instructions. If you have problems or questions, contact your health care provider. What can I expect after the procedure? After the procedure, it is common to have: ? Some blood in your urine. This should only last for a few days. ? Soreness in your back, sides, or upper abdomen for a few days. ? Blotches or bruises on the area where the shock wave entered the skin. ? Pain, discomfort, or nausea when pieces (fragments) of the kidney stone move through the tube that carries urine from the kidney to the bladder (ureter). Stone fragments may pass soon after the procedure, but they may continue to pass for up to 4?8 weeks. ? If you have severe pain or nausea, contact your health care provider. This may be caused by a large stone that was not broken up, and this may mean that you need more treatment. ? Some pain or discomfort during urination. ? Some pain or discomfort in the lower abdomen or (in men) at the base of the penis. Follow these instructions at home: Medicines ? Take nkly-qpa-ihoclot and prescription medicines only as told by your health care provider. ? If you were prescribed an antibiotic medicine, take it as told by your health care provider. Do not stop taking the antibiotic even if you start to feel better. ? Ask your health care provider if the medicine prescribed to you requires you to avoid driving or using machinery. Eating and drinking ? Drink enough fluid to keep your urine pale yellow. This helps any remaining pieces of the stone to pass. It can also help prevent new stones from forming. ? Eat plenty of fresh fruits and vegetables. ? Follow instructions from your health care provider about eating or drinking restrictions. You may be instructed to: ? Reduce how much salt (sodium) you eat or drink. Check ingredients and nutrition facts on packaged foods and beverages to see how much sodium they contain. ? Reduce how much meat you eat. ? Eat the recommended amount of calcium for your age and gender. Ask your health care provider how much calcium you should have. General instructions ? Get plenty of rest. ? Return to your normal activities as told by your health care provider. Ask your health care provider what activities are safe for you. Most people can resume normal activities 1?2 days after the procedure. ? If you were given a sedative during the procedure, it can affect you for several hours. Do not drive or operate machinery until your health care provider says that it is safe. ? Your health care provider may direct you to lie in a certain position (postural drainage) and tap firmly (percuss) over your kidney area to help stone fragments pass. Follow instructions as told by your health care provider. ? If directed, strain all urine through the strainer that was provided by your health care provider. ? Keep all fragments for your health care provider to see. Any stones that are found may be sent to a medical lab for examination. The stone may be as small as a grain of salt. ? Keep all follow-up visits as told by your health care provider. This is important. Contact a health care provider if: ? You have a fever or chills. ? You have nausea that is severe or does not go away. ? You have any of these urinary symptoms: ? Blood in your urine for longer than your health care provider told you to expect. ? Urine that smells bad or unusual. ? Feeling a strong urge to urinate after emptying your bladder. ? Pain or burning with urination that does not go away. ? Urinating more often than usual and this does not go away. ? You have a stent and it comes out. Get help right away if: ? You have severe pain in your back, sides, or upper abdomen. ? You have any of these urinary symptoms: ? Severe pain while urinating. ? More blood in your urine or having blood in your urine when you did not before. ? Passing blood clots in your urine. ? Passing only a small amount of urine or being unable to pass any urine at all. ? You have severe nausea that leads to persistent vomiting. ? You faint. Summary ? After this procedure, it is common to have some pain, discomfort, or nausea when pieces (fragments) of the kidney stone move through the tube that carries urine from the kidney to the bladder (ureter). If this pain or nausea is severe, however, you should contact your health care provider. ? Return to your normal activities as told by your health care provider. Ask your health care provider what activities are safe for you. ? Drink enough fluid to keep your urine pale yellow. This helps any remaining pieces of the stone to pass, and it can help prevent new stones from forming. ? If directed, strain your urine and keep all fragments for your health care provider to see. Fragments or stones may be as small as a grain of salt. ? Get help right away if you have severe pain in your back, sides, or upper abdomen, or if you have severe pain while urinating. This information is not intended to replace advice given to you by your health care provider. Make sure you discuss any questions you have with your health care provider. Document Revised: 05/07/2022 Document Reviewed: 02/12/2022 [employer] Patient Education ? 2022 [employer]. Lithotripsy Lithotripsy is a treatment that can help break up kidney stones that are too large to pass on their own. This is a nonsurgical procedure that crushes a kidney stone with shock waves. These shock waves pass through your body and focus on the kidney stone. They cause the kidney stone to break up into smaller pieces while it is still in the urinary tract. The smaller pieces of stone can pass more easily out of your body in the urine. Tell a health care provider about: ? Any allergies you have. ? All medicines you are taking, including vitamins, herbs, eye drops, creams, and aovb-pqb-azjvtnu medicines. ? Any problems you or family members have had with anesthetic medicines. ? Any blood disorders you have. ? Any surgeries you have had. ? Any medical conditions you have. ? Whether you are or may be . What are the risks? Generally, this is a safe procedure. However, problems may occur, including: ? Infection. ? Bleeding from the kidney. ? Bruising of the kidney or skin. ? Scarring of the kidney, which can lead to: ? Increased blood pressure. ? Poor kidney function. ? Return (recurrence) of kidney stones. ? Damage to other structures or organs, such as the liver, colon, spleen, or pancreas. ? Blockage (obstruction) of the tube that carries urine from the kidney to the bladder (ureter). ? Failure of the kidney stone to break into pieces (fragments). What happens before the procedure? Staying hydrated Follow instructions from your health care provider about hydration, which may include: ? Up to 2 hours before the procedure ? you may continue to drink clear liquids, such as water, clear fruit juice, black coffee, and plain tea. Eating and drinking restrictions Follow instructions from your health care provider about eating and drinking, which may include: ? 8 hours before the procedure ? stop eating heavy meals or foods, such as meat, fried foods, or fatty foods. ? 6 hours before the procedure ? stop eating light meals or foods, such as toast or cereal. ? 6 hours before the procedure ? stop drinking milk or drinks that contain milk. ? 2 hours before the procedure ? stop drinking clear liquids. Medicines Ask your health care provider about: ? Changing or stopping your regular medicines. This is especially important if you are taking diabetes medicines or blood thinners. ? Taking medicines such as aspirin and ibuprofen. These medicines can thin your blood. Do not take these medicines unless your health care provider tells you to take them. ? Taking kybj-yjj-fpxgxzo medicines, vitamins, herbs, and supplements. Tests You may have tests, such as: ? Blood tests. ? Urine tests. ? Imaging tests, such as a CT scan. General instructions ? Plan to have someone take you home from the hospital or clinic. ? If you will be going home right after the procedure, plan to have someone with you for 24 hours. ? Ask your health care provider what steps will be taken to help prevent infection. These may include washing skin with a germ-killing soap. What happens during the procedure? ? An IV will be inserted into one of your veins. ? You will be given one or more of the following: ? A medicine to help you relax (sedative). ? A medicine to make you fall asleep (general anesthetic). ? A water-filled cushion may be placed behind your kidney or on your abdomen. In some cases, you may be placed in a tub of lukewarm water. ? Your body will be positioned in a way that makes it easy to target the kidney stone. ? An X-ray or ultrasound exam will be done to locate your stone. ? Shock waves will be aimed at the stone. If you are awake, you may feel a tapping sensation as the shock waves pass through your body. ? A flexible tube with holes in it (stent) may be placed in the ureter. This will help keep urine flowing from the kidney if the fragments of the stone have been blocking the ureter. The procedure may vary among health care providers and hospitals. What happens after the procedure? ? You may have an X-ray to see whether the procedure was able to break up the kidney stone and how much of the stone has passed. If large stone fragments remain after treatment, you may need to have a second procedure at a later time. ? Your blood pressure, heart rate, breathing rate, and blood oxygen level will be monitored until you leave the hospital or clinic. ? You may be given antibiotics or pain medicine as needed. ? If a stent was placed in your ureter during surgery, it may stay in place for a few weeks. ? You may need to strain your urine to collect pieces of the kidney stone for testing. ? You will need to drink plenty of water. ? If you were given a sedative during the procedure, it can affect you for several hours. Do not drive or operate machinery until your health care provider says that it is safe. Summary ? Lithotripsy is a treatment that can help break up kidney stones that are too large to pass on their own. ? Lithotripsy is a nonsurgical procedure that crushes a kidney stone with shock waves. ? Generally, this is a safe procedure. However, problems may occur, including damage to the kidney or other organs, infection, or obstruction of the tube that carries urine from the kidney to the bladder (ureter). ? You may have a stent placed in your ureter to help drain your urine. This stent may stay in place for a few weeks. ? After the procedure, you will need to drink plenty of water. You may be asked to strain your urine to collect pieces of the kidney stone for testing. This information is not intended to replace advice given to you by your health care provider. Make sure you discuss any questions you have with your health care provider. Document Revised: 05/07/2022 Document Reviewed: 02/12/2022 [employer] Patient Education ? 2022 [employer] UROLOGY OFFICE/CLINIC NOTE Observed: 05/2024 8:59 AM Status: F Source: [facility] Urology Office/Clinic Note Chief Complaint Dr. West referral HPI Staff 68 year old male referred by Dr. Wset for nephrolithiasis. Pt. last seen 11/06/22 and Previous DX: kidney stone, gross hematuria and ED. Pt. was scheduled for ESWL on 11/15/22 but CX and wanted to go to [facility]. KUB done 01/24/24. Pt. taking Potassium 10mEq. Dysuria: yes Incomplete bladder emptying: no Hematuria: Pt. states in the toilet his urine will look dark on the bottom and light on top Frequency: no Urgency: no Nocturia: no Stream: good stream Post void dripping: no Wearing pads/ Depends: no Urge incontinence: no Stress incontinence: no Incontinence without Sensory Awareness: no Abdominal pain: no Flank pain: Pt. states having Lt. flank pain and occasionally Lt. flank pain History of Present Illness Tests reviewed: reviewed UA, referral records, [facility] notes and CT scan, KUB I have reviewed the previous health record information and history for this patient from Dr. Contreras and external providers. I have reviewed and verified the staff HPI to be accurate for this encounter. Review of Systems PHQ Score Initial Depression Screen Score: 0 SCORE ROS - Provider Constitutional: denies weight loss, denies hot flashes. Eyes: denies eye problems. Gastrointestinal: denies nausea, denies vomiting. Cardiovascular: denies chest pain or angina. Integumentary: no dryness Musculoskeletal: denies musculoskeletal symptoms. ENMT: denies otolaryngeal symptoms. Respiratory: no shortness of breath. Heme/Lymph: denies easy bleeding tendency, denies easy bruising tendency. Psychiatric: no confusion, no anxiety. Genitourinary: See HPI. Physical Exam Vitals & Measurements HT: 71 in HT: 180 cm WT: 134.6 kg WT: 296.12 lb BMI: 41.54 General Appearance: alert, no distress, well nourished, well developed male. Assessment/Plan Re-referred by Dr. Katrina West for nephrolithiasis. Last seen by [facility] 11/06/22. IPSS 0 (5). 1. Kidney stone (N20.0: Calculus of kidney) CT AP wo con 09/22/22 - Left sided oval renal calculus in the left renal pelvis measuring 1.4 x 0.5 cm. There is not significant left sided hydronephrosis, no ureteral stone. KUB 11/05/22 [facility] - No urinary tract calculi. Personal review: no stones visible. [1] -Pt was scheduled for L ESWL 11/15/22 but pt went to [facility] due to plans to go on vacation around time of ESWL. Saw Dr. Webb with [facility] 11/13/22, discussed operative intervention options but pt wished to undergo dissolution therapy and was started on potassium citrate. States he never had follow up due to technological complications. CT AP wo con 03/20/23 [facility] - Stable 1.3 x 0.4 cm nonobstructing L renal stone. No hydro. No R renal stones noted. KUB 01/24/24 [facility] - No evidence of nephrolithiasis. Taking potassium citrate 10mEq per [facility]. Urine pH 6.0, not likely uric acid stones. However stones were not visualized on XR which contradicts this. Completed 24hr urine in the distant past, does not recall findings. Reviewed imaging results. Advised pt stone will require operative intervention given large size. Recommended [place] to better evaluate stone. Discussed referral back to [facility] for PCNL vs cysto with stent placement and lithotripsy and possible retrograde pyelogram. Risks/benefits of each option discussed. Pt prefers to stay local despite knowing increase risk. Discussed likelihood of a staged procedure. Pt still willing to proceed. -Complete [place] -Will schedule Cysto with JJ Stent Placement and staged L ESWL with possible RGP. The procedure risks, benefits, details and treatment alternatives have been discussed with the patient. These include blood urine, infection, bleeding around the kidney, kidney bruising, inability to break up the stone, need for blood transfusion, stent pain, injury to the ureter, bladder irritation from the stent, flank pain, and need for additional procedures, among others. Full informed consent has been obtained. Will order General anesthesia. Risk of heart and lung problems discussed. -Metabolic workup after operative intervention Overall this patient had the 1.2 cm stone within the left kidney which I felt had been ball valving. This is about 14 to 15 months ago. He was subsequently seen at the [facility], Dr. Charli Webb, who had given the patient 4 options including mini PCNL versus endoscopic retrograde ureteroscopic and nephroscopic management versus medication management with potassium citrate versus ESWL. The patient had elected medical management and subsequently had a CT scan in February 2023 demonstrating 1.3 cm calculus. He has had no imaging since that time and still has intermittent left-sided flank pain. He does not want to go to [place]. I have informed him that it will be multiple procedures here locally due to lack of interventional radiology availability. He understands that ESWL would be the first stage and possible retrograde ureteroscopic and nephroscopic laser lithotripsy and basket extraction of remaining fragments may be indicated. He will stay on his potassium citrate at this point. The urinary pH is 6 which may have been an improvement from prior levels. It is also possible that renal ultrasound demonstrates no evidence of renal calculus. This may prompt a CT scan prior to any operative intervention. He agrees with the plan Follow-up With When Contact Information CHAR WALLACE, Sae Juarez, URL [address] [place], [place] [id number]- Additional Instructions: get [place] then schedule stone procedure Patient Education Lithotripsy, Care After Lithotripsy I, Ailssa Sanabria, personally scribed for Dr. Contreras on 02/03/2024 09:00:13. . Documentation recorded by the Alissa huff acurately reflects the services(s) I performed and decisions made by me. Authenticated by Dr. Contreras on 02/03/2024 09:02:41. Portions of this record may have been created with voice recognition artificial intelligence software, specifically [employer] and or [employer]. Substitutions may have occurred due to the inherent limitations of voice recognition and artificial intelligence software. Problem List/Past Medical History Ongoing Arthritis Depression Diabetes mellitus, type II Erectile dysfunction Gall stone Glaucoma Gross hematuria Head ache Hyperlipidemia Hypertension Kidney stone Liver disease Skin cancer Historical No qualifying data Procedure/Surgical History Cholecystectomy, Colonoscopy, Hemorrhoid, Hernia, Procedure on back. Medications busPIRone, Oral, BID gabapentin 100 mg Cap, 100 mg= 1 cap(s) losartan 50 mg Tab, Oral, Daily metformin, Oral, Not taking Novolin 70/30, SubCutaneous Ozempic, SubCutaneous, qWeek potassium CITRATE 10 mEq ER Tab, 10 mEq= 1 tab(s) simvastatin 40 mg Tab, Oral, Once a day (at bedtime) Allergies Latex (Itch) No Known Medication Allergies Social History Tobacco Former smoker, quit more than 30 days ago Tobacco Use:. Never Smokeless Tobacco Use:. Cigarettes, 02/03/2024 Family History Alcoholism: Brother. Arthritis: Mother. Diabetes mellitus: Father. Drug addiction: Brother. Primary malignant neoplasm of lung: Mother. Immunizations Vaccine Date Status influenza virus vaccine, inactivated 05/22/2022 Recorded pneumococcal 23-valent vaccine 03/16/2021 Recorded influenza virus vaccine, inactivated 03/16/2021 Recorded SARS-CoV-2 (COVID-19) mRNA BNT-162b2 vax 10/18/2020 Recorded SARS-CoV-2 (COVID-19) mRNA BNT-162b2 vax 09/27/2020 Recorded pneumococcal 13-valent vaccine 05/28/2019 Recorded influenza virus vaccine, inactivated 05/28/2019 Recorded Lab Results Ambulatory Point of Care Results Bilirubin Urine Dipstick: Negative (02/03/24 08:33:00) Blood Urine Dipstick: Negative (02/03/24 08:33:00) Glucose Urine Dipstick: Negative (02/03/24 08:33:00) Ketones Urine Dipstick: Negative (02/03/24 08:33:00) Leukocytes Urine Dipstick: Negative (02/03/24 08:33:00) Nitrite Urine Dipstick: Negative (02/03/24 08:33:00) Protein Urine Dipstick: Negative (02/03/24 08:33:00) Specific [place] Urine Dipstick: >=1.030 (02/03/24 08:33:00) Urine Appearance Urine Dipstick: Clear (02/03/24 08:33:00) Urine Color Urine Dipstick: Yellow (02/03/24 08:33:00) Urobilinogen Urine Dipstick: Normal 0.2-1 EU/dl (02/03/24 08:33:00) pH Urine Dipstick: 6 (02/03/24 08:33:00) [1] URO - ER f/u, L kidney stone, schedule L ESWL; Sae CONTRERAS MD 11/06/2022 09:56 EDT Result Comment: Electronical ly Signed By: Sae CONTRERAS MD\.br\Date and Time Signed: 02/03/24 09:05 EDT\.br\Electronically Co-Signed By: Alissa Sanabria\.br\Date and Time Co-Signed: 02/03/24 09:00 EDT PATIENT EDUCATION Observed: 02/03/2024 8:57 AM Status: C Source: [facility] Patient Education Nephrology Lithotripsy, Care After This sheet gives you information about how to care for yourself after your procedure. Your health care provider may also give you more specific instructions. If you have problems or questions, contact your health care provider. What can I expect after the procedure? After the procedure, it is common to have: ? Some blood in your urine. This should only last for a few days. ? Soreness in your back, sides, or upper abdomen for a few days. ? Blotches or bruises on the area where the shock wave entered the skin. ? Pain, discomfort, or nausea when pieces (fragments) of the kidney stone move through the tube that carries urine from the kidney to the bladder (ureter). Stone fragments may pass soon after the procedure, but they may continue to pass for up to 4?8 weeks. ? If you have severe pain or nausea, contact your health care provider. This may be caused by a large stone that was not broken up, and this may mean that you need more treatment. ? Some pain or discomfort during urination. ? Some pain or discomfort in the lower abdomen or (in men) at the base of the penis. Follow these instructions at home: Medicines ? Take wqam-dxb-ialseta and prescription medicines only as told by your health care provider. ? If you were prescribed an antibiotic medicine, take it as told by your health care provider. Do not stop taking the antibiotic even if you start to feel better. ? Ask your health care provider if the medicine prescribed to you requires you to avoid driving or using machinery. Eating and drinking ? Drink enough fluid to keep your urine pale yellow. This helps any remaining pieces of the stone to pass. It can also help prevent new stones from forming. ? Eat plenty of fresh fruits and vegetables. ? Follow instructions from your health care provider about eating or drinking restrictions. You may be instructed to: ? Reduce how much salt (sodium) you eat or drink. Check ingredients and nutrition facts on packaged foods and beverages to see how much sodium they contain. ? Reduce how much meat you eat. ? Eat the recommended amount of calcium for your age and gender. Ask your health care provider how much calcium you should have. General instructions ? Get plenty of rest. ? Return to your normal activities as told by your health care provider. Ask your health care provider what activities are safe for you. Most people can resume normal activities 1?2 days after the procedure. ? If you were given a sedative during the procedure, it can affect you for several hours. Do not drive or operate machinery until your health care provider says that it is safe. ? Your health care provider may direct you to lie in a certain position (postural drainage) and tap firmly (percuss) over your kidney area to help stone fragments pass. Follow instructions as told by your health care provider. ? If directed, strain all urine through the strainer that was provided by your health care provider. ? Keep all fragments for your health care provider to see. Any stones that are found may be sent to a medical lab for examination. The stone may be as small as a grain of salt. ? Keep all follow-up visits as told by your health care provider. This is important. Contact a health care provider if: ? You have a fever or chills. ? You have nausea that is severe or does not go away. ? You have any of these urinary symptoms: ? Blood in your urine for longer than your health care provider told you to expect. ? Urine that smells bad or unusual. ? Feeling a strong urge to urinate after emptying your bladder. ? Pain or burning with urination that does not go away. ? Urinating more often than usual and this does not go away. ? You have a stent and it comes out. Get help right away if: ? You have severe pain in your back, sides, or upper abdomen. ? You have any of these urinary symptoms: ? Severe pain while urinating. ? More blood in your urine or having blood in your urine when you did not before. ? Passing blood clots in your urine. ? Passing only a small amount of urine or being unable to pass any urine at all. ? You have severe nausea that leads to persistent vomiting. ? You faint. Summary ? After this procedure, it is common to have some pain, discomfort, or nausea when pieces (fragments) of the kidney stone move through the tube that carries urine from the kidney to the bladder (ureter). If this pain or nausea is severe, however, you should contact your health care provider. ? Return to your normal activities as told by your health care provider. Ask your health care provider what activities are safe for you. ? Drink enough fluid to keep your urine pale yellow. This helps any remaining pieces of the stone to pass, and it can help prevent new stones from forming. ? If directed, strain your urine and keep all fragments for your health care provider to see. Fragments or stones may be as small as a grain of salt. ? Get help right away if you have severe pain in your back, sides, or upper abdomen, or if you have severe pain while urinating. This information is not intended to replace advice given to you by your health care provider. Make sure you discuss any questions you have with your health care provider. Document Revised: 05/07/2022 Document Reviewed: 02/12/2022 [employer] Patient Education ? 2022 Votigo.Lithotripsy Lithotripsy is a treatment that can help break up kidney stones that are too large to pass on their own. This is a nonsurgical procedure that crushes a kidney stone with shock waves. These shock waves pass through your body and focus on the kidney stone. They cause the kidney stone to break up into smaller pieces while it is still in the urinary tract. The smaller pieces of stone can pass more easily out of your body in the urine. Tell a health care provider about: ? Any allergies you have. ? All medicines you are taking, including vitamins, herbs, eye drops, creams, and hgxq-rwx-oskqkat medicines. ? Any problems you or family members have had with anesthetic medicines. ? Any blood disorders you have. ? Any surgeries you have had. ? Any medical conditions you have. ? Whether you are or may be . What are the risks? Generally, this is a safe procedure. However, problems may occur, including: ? Infection. ? Bleeding from the kidney. ? Bruising of the kidney or skin. ? Scarring of the kidney, which can lead to: ? Increased blood pressure. ? Poor kidney function. ? Return (recurrence) of kidney stones. ? Damage to other structures or organs, such as the liver, colon, spleen, or pancreas. ? Blockage (obstruction) of the tube that carries urine from the kidney to the bladder (ureter). ? Failure of the kidney stone to break into pieces (fragments). What happens before the procedure? Staying hydrated Follow instructions from your health care provider about hydration, which may include: ? Up to 2 hours before the procedure ? you may continue to drink clear liquids, such as water, clear fruit juice, black coffee, and plain tea. Eating and drinking restrictions Follow instructions from your health care provider about eating and drinking, which may include: ? 8 hours before the procedure ? stop eating heavy meals or foods, such as meat, fried foods, or fatty foods. ? 6 hours before the procedure ? stop eating light meals or foods, such as toast or cereal. ? 6 hours before the procedure ? stop drinking milk or drinks that contain milk. ? 2 hours before the procedure ? stop drinking clear liquids. Medicines Ask your health care provider about: ? Changing or stopping your regular medicines. This is especially important if you are taking diabetes medicines or blood thinners. ? Taking medicines such as aspirin and ibuprofen. These medicines can thin your blood. Do not take these medicines unless your health care provider tells you to take them. ? Taking qvjx-kky-kiucjtj medicines, vitamins, herbs, and supplements. Tests You may have tests, such as: ? Blood tests. ? Urine tests. ? Imaging tests, such as a CT scan. General instructions ? Plan to have someone take you home from the hospital or clinic. ? If you will be going home right after the procedure, plan to have someone with you for 24 hours. ? Ask your health care provider what steps will be taken to help prevent infection. These may include washing skin with a germ-killing soap. What happens during the procedure? ? An IV will be inserted into one of your veins. ? You will be given one or more of the following: ? A medicine to help you relax (sedative). ? A medicine to make you fall asleep (general anesthetic). ? A water-filled cushion may be placed behind your kidney or on your abdomen. In some cases, you may be placed in a tub of lukewarm water. ? Your body will be positioned in a way that makes it easy to target the kidney stone. ? An X-ray or ultrasound exam will be done to locate your stone. ? Shock waves will be aimed at the stone. If you are awake, you may feel a tapping sensation as the shock waves pass through your body. ? A flexible tube with holes in it (stent) may be placed in the ureter. This will help keep urine flowing from the kidney if the fragments of the stone have been blocking the ureter. The procedure may vary among health care providers and hospitals. What happens after the procedure? ? You may have an X-ray to see whether the procedure was able to break up the kidney stone and how much of the stone has passed. If large stone fragments remain after treatment, you may need to have a second procedure at a later time. ? Your blood pressure, heart rate, breathing rate, and blood oxygen level will be monitored until you leave the hospital or clinic. ? You may be given antibiotics or pain medicine as needed. ? If a stent was placed in your ureter during surgery, it may stay in place for a few weeks. ? You may need to strain your urine to collect pieces of the kidney stone for testing. ? You will need to drink plenty of water. ? If you were given a sedative during the procedure, it can affect you for several hours. Do not drive or operate machinery until your health care provider says that it is safe. Summary ? Lithotripsy is a treatment that can help break up kidney stones that are too large to pass on their own. ? Lithotripsy is a nonsurgical procedure that crushes a kidney stone with shock waves. ? Generally, this is a safe procedure. However, problems may occur, including damage to the kidney or other organs, infection, or obstruction of the tube that carries urine from the kidney to the bladder (ureter). ? You may have a stent placed in your ureter to help drain your urine. This stent may stay in place for a few weeks. ? After the procedure, you will need to drink plenty of water. You may be asked to strain your urine to collect pieces of the kidney stone for testing. This information is not intended to replace advice given to you by your health care provider. Make sure you discuss any questions you have with your health care provider. Document Revised: 05/07/2022 Document Reviewed: 02/12/2022 Elsevier Patient Education ? 2022 Elsevier Inc. XR ABDOMEN 2 VIEW Observed: 01/24/2024 3:18 PM Status: F Source: [facility] EXAM: XR Abdomen, Seven View s. REASON FOR EXAM: History of kidney stones, bilateral flank pain. COMPARISON: None FINDINGS: Seven images. The overall bowel gas pattern is nonspecific. Air-fluid levels throughout the small and large bowel. Moderate amount of stool in the right colon. Phlebolithic type calcifications within the pelvis. Atherosclerosis. Diffuse lumbar spondylosis. No discrete calcifications over either renal shadow. Large body habitus and stool obscure both renal shadows IMPRESSION: 1. Small and large bowel enteritis pattern. 2. Obstipation of the colon. 3. No evidence of nephrolithiasis within the limitations of the exam. *This report is generated using voice recognition reporting (Revstr). On occasion PowerScribe erroneously drops words from the report or replaces the spoken word with similar sounding words. Please call with any questions/concerns regarding this report.* Dictated and transcribed 01/24/2024/tm This report has been electronically signed and approved by the interpreting radiologist. Electronically Signed Philip Huffman II, M.D. 2024-01-24 17:36:26 XR CHEST 2 VIEWS Observed: 01/24/2024 3:18 PM Status: F Source: [facility] EXAM: XR Chest, Two Views. 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 COMPARISON: Chest x-ray March 29, 2021 FINDINGS: Four images of the chest submitted. The cardiac and mediastinal silhouettes are normal for size. The trachea is not displaced. Pulmonary vasculature is normal. The lungs are clear. The regional skeleton and pleural surfaces are without significant abnormality. IMPRESSION: No cardiopulmonary abnormalities radiographically. *This report is generated using voice recognition reporting (Revstr). On occasion PowerScribe erroneously drops words from the report or replaces the spoken word with similar sounding words. Please call with any questions/concerns regarding this report.* Dictated and transcribed 01/24/24/dpd This report has been electronically signed and approved by the interpreting radiologist. Electronically Signed Philip Huffman II, M.D. 2024-01-24 17:36:35 ALLERGIES DATE TYPE / CODE NAME / CODE REACTION SEVERITY SOURCE 09/18/2024 Drug Allergy/404520916(S NOMED CT) adhesive tape/Z306477195( RXNORM) Rash Unknown [facility] 09/18/2024 Drug Allergy/366034219(S NOMED CT) latex/Y134463020 (RXNORM) Itching Unknown [facility] 03/24/2018 Drug Class~Environ~NON-C BORD/022091627(SNOM ED CT) ADHESIVE Itching [facility] 03/24/2018 DRUG INGREDI~Environ~NON -CBORD/196325528(SN OMED CT) LATEX Itching [facility] 03/24/2018 DRUG INGREDI~NON-CBORD/4 82633874(SNOMED CT) LISINOPRIL Cough [facility] DR/006951422(SNOMED CT) Tape OB22455-8 [facility] Miscellaneous Allergy/406809584(S NOMED CT) No Known Medication Allergies [facility] Miscellaneous Allergy/006726990(S NOMED CT) Latex 2977110234 Mild (Qualifier Value) [facility] ENCOUNTERS ADMIT/DISCHARGE ACCOUNT NUMBER ADMITTING ENCOUNTER CLASS LOCATION SOURCE 10/29/2024/10/30/19 [id number] Ambulatory Building:[facility] 10/29/2024/10/30/19 [id number] Ambulatory Building:[facility] 10/29/2024/10/30/19 [id number] Ambulatory Building:[facility] 10/27/2024/10/28/19 [id number] Ambulatory [place] : Exam 7 [facility] 10/21/2024/10/22/19 [id number] Ambulatory Building:[facility] _US [facility] 09/24/2024/09/25/19 [id number] Ambulatory Building:[facility] 09/18/2024/09/19/19 [id number] [facility] 08/07/2024/08/07/19 [id number] Ambulatory Building:[facility] 08/07/2024/08/07/19 [id number] [facility] 07/31/2024/07/31/19 25 [id number] Ambulatory Building:R [facility] 05/12/2024/05/12/20 24 [id number] Sae CONTRERAS Ambulatory [facility]MCBuilding :[facility] 05/11/2024/05/11/20 24 [id number] [facility] 05/11/2024/05/11/20 24 [id number] Ambulatory Building:[facility] 05/01/2024/05/01/20 24 [id number] Ambulatory Building:[facility] 04/22/[id number] aSe CONTRERAS Ambulatory FTMCBuilding :ASRoom: HZ46Cqo: [facility] 04/22/2024/04/22/20 24 [id number] Sae CONTRERAS Ambulatory FTMCBuilding :ASRoom: SV75Mih: [facility] 04/14/2024/04/14/20 24 [id number] Sae CONTRERAS Ambulatory [facility] :[facility] 04/14/[id number] Sae CONTRERAS Ambulatory [facility] :[facility] 03/24/2024/03/24/20 24 [id number] Ambulatory Building:[facility] 03/12/2024/03/12/20 24 [id number] Ambulatory CD:[id number] 7Building:CD :[id number] [facility] 02/25/2024/02/25/20 24 [id number] [place] [facility] 02/14/2024/02/14/20 24 [id number] Ambulatory Building:[facility] 02/10/2024/02/10/20 24 [id number] Ambulatory Building:[facility] 02/10/2024/02/10/20 24 [id number] Ambulatory Building:PFM _XR [facility] 02/10/2024/02/10/20 24 [id number] Ambulatory Building:PFM _LAB [facility] 02/03/2024/02/03/20 24 [id number] Ambulatory EU [place]:EU EmmanuelleyRoom : Exam 6 [facility] 01/24/2024/01/24/20 24 [id number] Ambulatory Building:[facility] 01/24/2024/01/24/20 24 [id number] Ambulatory Building:[facility] 01/24/2024/01/24/20 24 [id number] Ambulatory Building:[facility] 12/27/2023/12/27/19 24 [id number] Ambulatory Building:[facility] 11/07/2022 [id number] Ambulatory EU [place]kBuild ing:[place] [facility] PAYERS ENCOUNTER GUARANTOR PAYER SUBSCRIBER SOURCE 10/29/2024 BANDAR Worthy RAJATIREDOB: [address] [place], [place] [address]Zph: (HP) Primary Insurance:UNITED HEALTHCARE MEDICAREPolicy Number: [id number] Date:2024-06-24 BANDAR Worthy DEMETRICEDAVYIREDOB: [id number] [place] [address] [facility] 10/29/2024 BANDAR Worthy RAJATIREDOB: [address] [place], [place] [address]Akd: (HP) Primary Insurance:[facility] MEDICAREPolicy Number: [id number] Date:2024-06-24 BANDAR Worthy RAJATIREDOB: [id number] [place] [address] [facility] 10/29/2024 BANDAR Worthy DEMETRICEDAVYIREDOB: [address] [place], [place] [address]Cwr: (HP) Primary Insurance:UNITED HEALTHCARE MEDICAREPolicy Number: [id number] Date:2024-06-24 BANDAR SURESHSHIREDOB: [id number] [place] [address] [facility] EPIC 10/27/2024 BANDAR SURESHSHIREDOB: [address] LNTel: ~(4 19 (HP) Primary Insurance:[facility] Number: [id number] Date:2024-04-09 BANDAR GONZALEZ [facility] 10/21/2024 BANDAR SURESHSHIREDOB: [address] [place] [address]Vhd: (HP) Primary Insurance:[facility]-EPXX9Roiofh Number: [id number] Date:2021-06-24 BANDAR SURESHSHIREDOB: [id number] [place], [place] [address]Cha: (HP) [facility] 09/24/2024 BANDAR SURESHSHIREDOB: [address] [place], [place] [address]Iuj: (HP) Primary Insurance:UNITED HEALTHCARE MEDICAREPolicy Number: [id number] Date:2024-06-24 BANDAR SURESHSHIREDOB: [id number] [place] [address] [facility] EPIC 09/18/2024 Bandar [place] [address]Xzg: (HP) Primary Insurance:[facility] PFFSPolicy Number: [id number] Date:[id number] [address]JZ: Bandar SureshshireDOB: [id number] [place] [address]Bji: (HP) [facility] 09/18/2024 Secondary Insurance:Self PayPolicy Number: Effective Date:2024-09-14 [facility]/07/2024 BANDAR SURESHSHIREDOB: [address] [place], [place] [address]Gfp: (HP) Primary Insurance:OPTUMCARE AARPPolicy Number: [id number] Date:2024-06-24 BANDAR SURESHSHIREDOB: [id number] [place] [address] [facility] EP[facility] 08/07/2024 BANDAR SURESHSHIREDOB: [address] [place], [place] [address]Ypg: (HP) Primary Insurance:OPTUMCARE AARPPolicy Number: [id number] Date:2024-06-24 BANDAR SURESHSHIREDOB: [id number] [place] [address] [facility] EP[facility] 07/31/2024 BANDAR EARLIREDOB: [address] [place], [place] [address]Egv: (HP) Primary Insurance:[facility] MEDICARE COMPLETEPolicy Number: [id number] Date:2023-06-24 BANDAR SURESHSHIREDOB: [id number] [place] [address] [facility] EPIC 05/12/2024 BANDAR SURESHSHIREDOB: [address] LNTel: ~(4 19 (HP) Primary Insurance:[facility]Policy Number: [id number] Date:2024-05-07 [facility]LNILESH[facility] 05/11/2024 BANDAR SURESHSHIREDOB: [address] [place], [place] [address]Zmq: (HP) Primary Insurance:[facility] MEDICARE COMPLETEPolicy Number: [id number] Date:2023-06-24 BANDAR SURESHSHIREDOB: [id number] [place] [address] [facility] EPIC 05/11/2024 BANDAR Worthy DUKESHIREDOB: [address] [place], [place] [address]Pdh: (HP) Primary Insurance:AARP MEDICARE COMPLETEPolicy Number: [id number] Date:2023-06-24 BANDAR Worthy DUKESHIREDOB: [id number] [place] [address] [facility] 05/01/2024 BANDAR Worthy DUKESHIREDOB: [address] [place] [place], [place] [address]Cxd: (HP) Primary Insurance:AARP MEDICARE COMPLETEPolicy Number: [id number] Date:2023-06-24 BANDAR SURESHSHIREDOB: [id number] [place] [address] [facility] EPIC 04/22/2024 BANDAR NEWFOUNDLANDSHIREDOB: [address] LNTel: ~(4 19 (HP) Primary Insurance:[facility]Policy Number: [id number] Date:2024-04-09 [facility] 04/22/2024 BANDAR NEWFOUNDLANDSHIREDOB: [address] LNTel: ~(4 19 (HP) Primary Insurance:[facility]Policy Number: [id number] Date:2024-04-09 [facility] 04/14/2024 [facility] [address] LNTel: ~(4 19 (HP) Primary Insurance:[facility] CAREPolicy Number: [id number] Date:2024-04-06 [facility] 03/24/2024 BANDAR SURESHSHIREDOB: [address] [place], [place] [address]Szx: (HP) Primary Insurance:[facility]-UDDF8Alferz Number: [id number] Date:2021-06-24 BANDAR SURESHSHIREDOB: [id number] [place], [place] [address]Cnl: (HP) [facility] 03/12/2024 BANDAR SURESHSHIREDOB: [address] LNTel: ~( 19 (HP) Primary Insurance:[facility]Policy Number: [id number] Date:2024-02-23 BANDAR GONZALEZ [facility] 02/25/2024 Bandar Sureshshire[address] [place] [address]Svh: (HP) Primary Insurance:[facility] Medicare Advantage PFFSPolicy Number: [id number] Date:[id number] [address]AN: Bandar SureshshireDOB: [id number] [place] [address]Hvz: (HP) [facility] 02/25/2024 Secondary Insurance:Self PayPolicy Number: Effective Date:2024-01-31 [facility] 02/14/2024 BANDAR SURESHSHIREDOB: [address] [place], [place] [address]Wql: (HP) Primary Insurance:[facility]ADG PLAN-[id number] Number: [id number] Date:2021-06-24 BANDAR SURESHSHIREDOB: [id number] [place], [place] [address]Dcr: (HP) [facility] 02/10/2024 BANDAR SURESHSHIREDOB: [address] [place], [place] [address]Vhi: (HP) Primary Insurance:[facility] PLAN-[id number] Number: [id number] Date:2021-06-24 BANDAR SURESHSHIREDOB: [id number] [place], [place] [address]Ank: (HP) [facility] 02/10/2024 BANDAR SURESHSHIREDOB: [address] [place], [place] [address]Fek: (HP) [facility] Insurance:[facility]-[id number] Number: [id number] Date:2021-06-24 BANDAR SURESHSHIREDOB: [id number] [place], [place] [address]Pvf: (HP) [facility] 02/10/2024 BANDAR SURESHSHIREDOB: [address] [place], [place] [address]Mrk: (HP) Primary Insurance:[facility] REGIONADVG PLAN-[id number] Number: [id number] Date:2021-06-24 BANDAR SURESHSHIREDOB: [id number] [place], [place] [address]Enk: (HP) [facility] 02/03/2024 BANDAR EARLIREDOB: [address] LNTel: ~(4 19 (HP) Primary Insurance:[facility]Policy Number: [id number] Date:2022-11-06 BANDAR SURESHNETO [facility] 01/24/2024 BANDAR SURESHSHIREDOB: [address] [place], [place] [address]Aey: (HP) Primary Insurance:AARP MEDICARE COMPLETEPolicy Number: [id number] Date:2023-06-24 BANDAR EARLIREDOB: [id number] [place] [address] [facility] 01/24/2024 BANDAR SURESHSHIREDOB: [address] [place], [place] [address]Pjm: (HP) Primary Insurance:AARP MEDICARE COMPLETEPolicy Number: [id number] Date:2023-06-24 BANDAR SURESHSHIREDOB: [id number] [place] [address] [facility] 01/24/2024 BANDAR SURESHSHIREDOB: [address] [place], [place] [address]Gxu: (HP) Primary Insurance:AARP MEDICARE COMPLETEPolicy Number: [id number] Date:2023-06-24 BANDAR SURESHSHIREDOB: [id number] [place] [address] [facility] 12/27/2023 BANDAR EARLIREDOB: [address] [place], [place] [address]Wdz: (HP) Primary Insurance:AARP MEDICARE COMPLETEPolicy Number: [id number] Date:2023-06-24 BANDAR SURESHSHIREDOB: [id number] [place] [address] [facility] 11/07/2022 BANDAR SURESHSHIREDOB: Zaynab FLORES LNTel: ~(4 19 (HP) Primary Insurance:[facility]Policy Number: [id number] Date:2022-11-06 [facility]AR [facility]LWilson Health
[2024-11-14 18:29] VITALS: BP 140/85; PULSE 75; TEMP 36.4; O2SAT 97; BMI 41.8
--- OUTSIDE RECORDS SUMMARY | 2024-11-14 18:40 | XMS_ITS | Clinical Summary ---
Author Organization [facility] Address [address] [place] [address] Care Team Providers Care State Inspector Name Role Phone Katrina Humphrey MD Primary Care Pr ovider Social History Tobacco Use Types Packs/Day Years Used Date Smoking Tobacco: Never Assessed Sex and Gender Information Value Date Recorded Sex Assigned at Not on file Legal Sex Male 1:52 PM EDT Gender Identity Not on file Sexual Orientation Not on file Plan of Treatment Upcoming Encounters Date Type Department Care Team (Late st Contact Info) Description 12/15/2024 11:10 AM EDT Office Visit [facility] [place], [facility] [address] [place] [address], [address] [place] [address] Sourav Tucker MD [address] [facility] [address] [place] [address] Lumbar Pain, XR Lumbar done in [place], will bring disc, ppw sent out Health Maintenance Due Date Last Done Comments Depression Screen 1969 Hepatitis C screen 1975 DTaP/Tdap/Td vaccine (1 - Tdap) 1976 Lipids 1997 Colonoscopy 2002 Colorectal Cancer Screen 2002 FIT/FOBT: Average risk 2002 Fecal-DNA (Cologuard): Average risk 2002 Sigmoidoscopy/CT colonography 2002 Pneumococcal 50+ years Vacci ne (1 of 1 - PCV) 2007 Shingles vaccine (1 of 2) 2007 COVID-19 Vaccine ( - 2023-2 5 season) 2024 Annual Wellness Visit (Medic are Advant[employer]) 06/24/2024 Flu vaccine (Season Ended) 2025 Respiratory Syncytial Virus (RSV) or age 60 yrs+ (1 - 1-dose 75+ series) 2032 Hepatitis A vaccine Aged Out No longe r eligible based on patient's age to complete this topic Hepatitis B vaccine Aged Out No longe r eligible based on patient's age to complete this topic Hib vaccine Aged Out No longer eligi ble based on patient's age to complete this topic Meningococcal (ACWY) vaccine Aged Out No longer eligible based on patient's age to complete this topic Meningococcal B vaccine Aged Out No l onger eligible based on patient's age to complete this topic Polio vaccine Aged Out No longer elig ible based on patient's age to complete this topic Insurance [facility] MEDICARE [place] [id number] Care Teams State Inspector Relationship Specialty Start Date End Date Katrina Humphrey MD [address] [place], [place] [phone] PCP - General Family Medicine 09/28/24
--- OUTSIDE RECORDS SUMMARY | 2024-11-14 18:40 | XMS_ITS | Clinical Summary ---
Author Organization [facility] Address [address] [place] [address] Care Team Providers Care Crane Mechanic Name Role Phone Katrina Georges MD Primary Care Provider [phone] Lolly Chowdary LPN Unavailable [phone] Allergies Active Allergy Reactions Criticality Noted Date Comments Latex 12/20/2022 Other Reaction(s): Unknown Lisinopril 12/20/2022 Other Reaction(s): cough Wound Dressing Adhesive Itching 03/24/2018 Other Reaction(s): Unknown Uses paper tape Medications allopurinol (Zyloprim) 300 MG tablet Take 300 mg by mouth. Active Lumigan 0.01 % ophthalmic solution 1 (one) time each day at the same time Active Blood Glucose Monitoring Suppl (ONE TOUCH ULTRA 2) w/Device kit 08/27/19 23 Active GoodSense Arthritis Pain 1 % gel APPLY 4 GRAMS TO AFFECTED AREA 4 TIMES DAILY NEEDED 12/18/19 23 Active Lancets (OneTouch Delica Plus Gjudly18V) [facility] 10/20/19 23 Active glucose blood (OneTouch Ultra) test stripIndications:Type 2 diabetes mellitus with hyperglycemia, with long-term current use of insulin (CMS/[facility]) 1 each by Other route in the morning and 1 each before bedtime. Use as instructed. 100 each 3 10/23/19 24 Active Blood Glucose Monitoring Suppl (ONE TOUCH ULTRA 2) w/Device kitIndications:Type 2 diabetes mellitus with hyperglycemia, with long-term current use of insulin (CMS/HCC) 1 Device Daily 1 kit 01/08/20 24 Active latanoprost (Xalatan) 0.005 % ophthalmic solution 04/29/20 24 Active gabapentin (Neurontin) 100 MG capsuleIndications:Chr onic post-traumatic headache, not intractable TAKE 1 CAPSULE BY MOUTH EVERY MORNING AND 1 CAPSULE AT BEDTIME 180 capsule 09/29/19 25 Active buPROPion XL (Wellbutrin XL) 300 MG 24 hr tabletIndications:Recu rrent major depression in full remission (CMS/HCC) Take 1 tablet (300 mg) by mouth in the morning. Do not crush, chew, or split.. 100 tablet 09/29/19 25 Active citalopram (CeleXA) 40 MG tabletIndications:Recu rrent major depression in full remission (CMS/HCC) Take 1 tablet (40 mg) by mouth Daily 100 tablet 09/29/19 25 Active losartan (Cozaar) 50 MG tabletIndications:Esse ntial (primary) hypertension (CMS/HCC) Take 1 tablet (50 mg) by mouth in the morning and 1 tablet (50 mg) before bedtime. 200 tablet 09/29/19 25 Active insulin NPH-insulin regular (NovoLIN 70/30 FlexPen) (70-30) 100 UNIT/ML injectionIndications:T ype 2 diabetes mellitus with stage 3a chronic kidney disease, with long-term current use of insulin ([facility]) ([facility]),Type 2 diabetes mellitus with hypoglycemia without coma, with long-term current use of insulin ([facility]) Inject 28 Units under the skin in the morning and 28 Units in the evening. Inject before meals. 50 mL 09/29/19 25 Active metoprolol tartrate (Lopressor) 25 MG tabletIndications:Esse ntial (primary) hypertension (CMS/HCC) Take 1 tablet (25 mg) by mouth in the morning and 1 tablet (25 mg) before bedtime. 200 tablet 09/29/19 25 Active Semaglutide, 2 MG/DOSE, (Ozempic, 2 MG/DOSE,) 8 MG/3ML solution pen-injectorIndication s:Type 2 diabetes mellitus with hyperglycemia, with long-term current use of insulin ([facility]) Inject 2 mg under the skin 1 (one) time per week 9 mL 09/29/19 25 Active albuterol HFA 90 mcg/act inhalerIndications:Acu te cough,Bronchitis,Wheez ing Inhale 2 puffs every 4 (four) hours if needed for wheezing 18 g 09/29/19 25 026 Active famotidine (Pepcid) 20 MG tabletIndications:Dysp hagia, pharyngoesophageal phase Take 1 tablet (20 mg) by mouth in the morning and 1 tablet (20 mg) before bedtime. 180 tablet 1 09/29/19 25 Active simvastatin (Zocor) 40 MG tabletIndications:Type 2 diabetes mellitus with hyperglycemia, with long-term current use of insulin ([facility]) Take 1 tablet (40 mg) by mouth in the morning. 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 Facial skin lesion 12/20/2022 Hyperglycemia due to type 2 diabetes mellitus Assessment & Plan (08/10/2023 10:36 AM EST): Ozempic dosage increased to 2 mg weekly; A1C today 7.8. 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 Will chcek on this and get it done. He has not bee using CPAP for a year or two. Chronic pain syndrome 12/20/2022 Assessment & Plan (08/10/2023 10:33 AM EST): 08/10/23--Currently on norco prescribed by pain management. Other chronic pain 12/20/2022 Postoperative hypothyroidism 12/20/2022 Primary basal cell carcinoma of left ear 023 Recurrent major depression in full remission Substernal goiter 12/20/2022 Type 2 diabetes mellitus wit hout complication, without long-term current use of insulin 12/20/2022 Former smoker 11/13/2022 Gout with manifestations 11/13/2022 Cervical spine pain 08/09/2021 Acquired deformity of pinna 01/03/2021 History of pulmonary embolism 12/21/2020 Basal cell carcinoma of earlobe 12/02/2020 tank terminal gauger current use of insulin 04/25/2017 Hematochezia 05/09/2012 Hematuria 05/09/2012 Resolved Problems Problem Noted Date Diagnosed Date Resolved Date Head ache 08/02/2023 08/09/2023 Abnormal urinalysis 11/13/2022 08/09/19 24 Encounters Date Type Department Care Team Description 11/09/2024 Telephone [facility] [address] [place] [address] Katrina Georges MD 11/02/2024 Orders Only [facility] [address] [place] [address] Katrina Georges MD Spinal stenosis of lumbar region without neurogenic claudication (Primary Dx) 11/02/2024 Patient Outreach [facility] [address] [place] [address] Lolly Chowdary LPN 10/30/2024 Results Follow-Up [facility] [address] [place] [address] Katrina Georges MD 10/29/2024 2:30 PM EDT Ancillary Procedure [facility] [address] [place] [address] Left hip pain 10/29/2024 2:20 PM EDT Office Visit [facility] [address] [place] [address] Katrina Georges MD Left hip pain (Primary Dx); Chronic bilateral low back pain without sciatica 10/29/2024 2:00 PM EDT Ancillary Procedure [facility] [address] [place] [address] Chronic bilateral low back pain without sciatica 10/29/2024 Bamboo flowsheet [facility] [address] [place] [address] Katrina Georges MD 10/29/2024 Travel 10/26/2024 Patient Outreach [facility] [address] [place] [address] Lolly Chowdary LPN 10/20/2024 Orders Only [facility] [address] [place] [address] Hamida Biggs MA Stenosis of right carotid artery 10/13/2024 Telephone [facility] [address] [place] [address] Priya Caal MA 10/06/2024 Patient Outreach [facility] [address] [place] [address] Lolly Chowdary LPN 09/28/2024 Telephone [facility] [address] [facility] [place] [address] Katrina Georges MD 09/27/2024 Refill [facility] [address] [facility] [place] [phone] Hamida Muniz NP Chronic post-traumatic headache, not intractable 09/25/[address] [facility] [address] [place] [address] [facility] 09/24/2024 2:00 PM EDT Office Visit [facility] [address] [facility] [place] [phone] Katrina Georges MD Mixed hyperlipidemia (CMS/HCC) (Primary Dx); Type 2 diabetes mellitus with hyperglycemia, with long-term current use of insulin (CMS/HCC); Recurrent major depression in full remission (CMS/HCC); Essential (primary) hypertension (CMS/HCC); Chronic post-traumatic headache, not intractable 09/24/2024 Bamboo flowsheet [facility] [address] [facility] [place] [phone] Katrina Georges MD 09/24/2024 Travel 09/23/[address] [facility] [address] [place] [address] Lolly Chowdary, [facility] 09/21/2024 Telephone [facility] [address] [facility] [place] [address] Twyla Ocampo MA 09/21/2024 Telephone [facility] [address] [facility] [place] [address] Katrina Georges MD 09/18/2024 Orders Only [facility] [address] [facility] [place] [phone] Katrina Georges MD Stenosis of right carotid artery (Primary Dx); Polyp of colon, unspecified part of colon, unspecified type 09/10/2024 Patient Outreach [facility] [place] [id number] [place] [address] Katrina Freire RN 09/10/2024 Telephone [facility] [address] [facility] [place] [address] Annia Jay MA Patient Assistance 09/07/2024 Telephone [facility] [place] [id number] [facility] [place] [phone] Katrina Georges MD 09/04/2024 Refill [facility] [place] [address] [place] [address] Lolly Chowdary LPN Type 2 diabetes mellitus with hyperglycemia, with long-term current use of insulin ([facility]) 09/04/2024 Telephone [facility] [address] [facility] [place] [phone] Katrina Georges MD 08/18/2024 Telephone [facility] [place] [id number] [facility] [place] [phone] Katrina Georges MD 08/17/2024 Patient Outreach [facility] [place] [address] [place] [address] Lolly Chowdary LPN from Last 3 Months Immunizations Immunization Administration Dates Next Due Influenza, High Dose Seasona l, Preservative Free 05/02/2023 Influenza, Unspecified 05/22/2022,03/16/2021,10/2018 Influenza, injectable, quadr ivalent, preservative free 05/22/2022 Influenza, recombinant, quad rivalent, injectable, preservative free 03/16/2021,05/28/2019 Influenza, seasonal, injecta ble, preservative free 05/01/2024 Pfizer Purple Cap SARS-CoV-2 Vaccination 021,09/26/2020 Pneumococcal Conjugate PCV 13 05/28/2019, 019 Pneumococcal Polysaccharide PPSV23 03/16/2021 Tdap 09/12/2023 Family History Medical History Relation Name Comments Alcohol abuse Father Diabetes Father Heart valve repair Mother Lung cancer Mother Multiple myeloma Neg Hx Relation Name Status Comments Brother x4 Daughter Alive Father Mother Sister x3 Son Alive x2 Social History Tobacco Use Types Packs/Day Years Used Date Smoking Tobacco: Former Cigarettes Q uit: 06/24/2005 Smokeless Tobacco: Never Tobacco Cessation:Counseling Given: Not Answered Alcohol Use Standard Drinks/Week Comments Not Currently 0 (1 standard drink = 0.6 oz pur e alcohol) Caffeine intake: none PHQ-2 Answer Date Recorded Patient Health Questionnaire-2 Score 0 09/24/2024 Sex and Gender Information Value Date Recorded Sex Assigned at Not on file Legal Sex Male 7:01 PM EDT Gender Identity Male 09/05/2022 7:01 PM EDT Sexual Orientation Not on file Last Filed Vital Signs Vital Sign Reading Time Taken Comments Blood Pressure 126/84 10/29/2024 2:33 PM EDT Pulse 76 10/29/2024 2:33 PM EDT Temperature 37.3 C (99.2 F) 08/07/2024 11:19 AM EST Respiratory Rate 18 10/29/2024 2:33 PM EDT Oxygen Saturation 98% 10/29/2024 2:33 PM EDT Inhaled Oxygen Concentration - - Weight 134 kg (295 lb) 10/29/2024 2:33 PM EDT Height 180.3 cm (5' 11 ) 10/29/2024 2:33 PM EDT Body Mass Index 41.14 10/29/2024 2:33 PM EDT Plan of Treatment Upcoming Encounters Date Type Department Care Team (Late st Contact Info) Description 01/01/2025 2:00 PM EDT Office Visit [facility] [address] [place] [phone] Katrina Georges MD [address] [place] [address] Health Maintenance Due Date Last Done Comments CT Colonography 1957 FIT-DNA 1957 FIT 1957 FOBT 1957 Sigmoidoscopy 1957 Diabetes: Hemoglobin A1C 10/28/2024 025, 05/01/2024, 01/24/2024, Additional history exists Diabetes: Urine Protein Screening 01/23/2025 024, 05/22/2022 Diabetes: Retinopathy Screening 05/07/2025 05/07/2023, 02/17/2020, 02/19/2019, Additional history exists Medicare Annual Wellness (AWV) 07/31/2025 0 07/31/2024, 08/09/2023, 08/09/2023 Pneumococcal Vaccine: 65+ Ye ars (3 of 3 - PPSV23, PCV20 or PCV21) 03/16/2026 03/16/2021, 05/28/2019, 05/27/2019 Colonoscopy 09/18/2034 09/18/2024, 01/27/2019 Colorectal Cancer Screening 09/18/2034 Influenza Vaccine Completed 05/01/2024, , 05/22/2022, Additional history exists Procedures Procedure Name Priority Date/Time Associated Diagnosis Comments XR HIP 2 OR 3 VW LEFT Routine 10/29/2024 3:07 PM EDT Left hip pain XR LUMBAR SPINE AP/LAT/FLEX/EXT Routine 10/29/2024 3:07 PM EDT Chronic bilateral low back pain without sciatica AMB REFERRAL TO VASCULAR SURGERY Routine 10/20/2024 9:24 AM EDT Stenosis of right carotid artery AMB REFERRAL TO VASCULAR SURGERY Routine 10/20/2024 9:24 AM EDT Stenosis of right carotid artery AMB REFERRAL TO GASTROENTEROLOGY Routine 09/18/2024 2:38 PM EDT Polyp of colon, unspecified part of colon, unspecified type HM COLONOSCOPY Routine 09/18/2024 11:47 AM EDT STATUS COVID-19/FLU Routine 08/17/2024 6 :19 AM EST Acute cough HEMOGLOBIN A1C Routine 07/31/2024 1:46 PM EST Type 2 diabetes mellitus with stage 3a chronic kidney disease, with long-term current use of insulin (HCC) ([facility]) MICROALBUMIN / CREATININE URINE RATIO Routine 01/24/2024 2:58 PM EDT Type 2 diabetes mellitus with stage 3a chronic kidney disease, with long-term current use of insulin (HCC) (CMS/[facility]) COLOR FUNDUS PHOTOGRAPHY - OU - BOTH EYES Routine 05/07/2023 2:11 PM EST from Last 3 Months or Most Recently Relevant to Health Maintenance Results * XR hip left 2 or 3 views (10/29/2024 3:07 PM EDT) Anatomical Region Laterality Modality Lower Extremities, Hip Left Radiograp hic Imaging 10/29/2024 6:36 PM EDT Narrative 10/29/2024 6:36 PM EDT EXAM: XR HIP 2 OR 3 VW [...] signed and approved by the interpreting Radiologist. Procedure Note Cayden Jin MD - 10/29/2024 EXAM: XR HIP 2 OR 3 VW LEFT REASON FOR STUDY: Chronic bilateral low back pain with left hip pain COMPARISON: None FINDINGS: AP view of the pelvis with 2 views of the left hip The bony pelvic ring is grossly intact. Hip joint alignment issatisfactory with mild joint space narrowing of both hips. There is nofracture. There are atheromatous vascular calcifications. Impression: Mild bilateral hip joint osteoarthritis Dictated on: 10/29/2024 4:25 PM This report has been electronically signed and approved by theinterpreting Radiologist. us Ktarina Georges MD IMG XR PROCEDURES Final Resul t * XR LUMBAR SPINE AP/LAT/FLEX/EXT (10/29/2024 3:07 PM EDT) Anatomical Region Laterality Modality Spine, L-spine Radiographic Olga ging 10/29/2024 6:34 PM EDT Narrative 10/29/2024 6:34 PM EDT Exam: XR LUMBAR SPINE AP/LAT/FLEX/EXT Reason for study: Chronic bilateral low back [...] signed and approved by the interpreting Radiologist. Procedure Note Cayden Jin MD - 10/29/2024 Exam: XR LUMBAR SPINE AP/LAT/FLEX/EXT Reason for study: Chronic bilateral low back pain with left hip pain Comparison: None AP, lateral, lateral flexion, and lateral extension views There is a slight retrolisthesis of L3-L4, stable between flexion andextension. There is severe multilevel disc degeneration with vertebralspurring and multilevel facet joint osteoarthritis. Severe atheroscleroticvascular calcifications are noted. IMPRESSION: Severe multilevel disc degeneration and facet jointosteoarthritis. Stable retrolisthesis of L3-L4. Dictated on: 10/29/2024 4:22 PM This report has been electronically signed and approved by theinterpreting Radiologist. us Katrina Georges MD IMG XR PROCEDURES Final Resul t * Ambulatory referral to Vascular Surgery (10/20/2024 9:24 AM EDT) Only the most recent of2 resultswithin the time period is included. us Katrina Georges MD OUTPATIENT REFERRAL ORDERABLE S Final Result * Ambulatory referral to Gastroenterology (09/18/2024 2:38 PM EDT) us Katrina Georges MD OUTPATIENT REFERRAL ORDERABLE S Final Result * Hm Colonoscopy (09/18/2024 11:47 AM EDT) Anatomical Region Laterality Modality Other Result Karen Georges MD HEALTH MAINTENANCE Final Resu lt * STATUS COVID-19/FLU (08/17/2024 6:19 AM EST) FLU A negative FLU B negative SARS COV 2 RNA negative Swab 08/17/2024 6:19 AM EST us Virginia Umana NP POINT OF CARE TEST ENTE R/EDIT ORDERABLES Final Result * (ABNORMAL) Hemoglobin A1c (07/31/2024 1:46 PM EST) Hemoglobin A1C 6.6(H) <5.7 % of total Hgb [facility] Comment: For someone without known diabetes, a hemoglobin A1c value of 6.5% or greater indicates that they may have diabetes and this should be confirmed with a follow-up test. For someone with known diabetes, a value <7% indicates that their diabetes is well controlled and a value greater than or equal to 7% indicates suboptimal control. A1c targets should be individualized based on duration of diabetes, age, comorbid conditions, and other considerations. Currently, no consensus exists regarding use of hemoglobin A1c for diagnosis of diabetes for children. Blood Venous blood specimen / Unknown 07/31/2024 1:46 PM EST 07/31/2024 1:47 PM EST Narrative Resulting Agency Comment Performing Organization Information Site ID: QPT Name: [facility] Address: [address] [place] [address], [address] [place] [id number] Director: James James MD us Katrina Georges MD LAB BLOOD ORDERABLES Final Re sult [facility] * Microalbumin / creatinine, urine ratio (01/24/2024 2:58 PM EDT) CREATININE, RANDOM URINE 169 20 - 320 mg/dL [facility] ALBUMIN, URINE 1.1 See Note: mg/dL [facility] Comment: Reference Range: Reference Range Not established ALBUMIN/CREATININE RATIO, RANDOM URINE 7 <30 mg/g creat [facility] Comment: The ADA defines abnormalities in albumin excretion as follows: Albuminuria Category Result (mg/g creatinine) Normal to Mildly increased <30 Moderately increased 30-299 Severely increased > OR = 300 The ADA recommends that at least two of three specimens collected within a 3-6 month period be abnormal before considering a patient to be within a diagnostic category. Urine Urine specimen obtained by clean catch procedure / Unknown 01/24/2024 2:58 PM EDT 01/24/2024 2:58 PM EDT Narrative Resulting Agency Comment Performing Organization Information Site ID: QPT Name: [facility] Address: [address] [facility], [address] [place] [address] Director: James James MD us Katrina Georges MD LAB URINE ORDERABLES Final Re sult [facility] * (ABNORMAL) Color Fundus Photography - OU - Both Eyes (05/07/2023 2:11 PM EST) Anatomical Region Laterality Modality Head Fundus Photograp hy Narrative 05/07/2023 2:11 PM EST Refer to an wood finisher apprentice for evaluation of possible glaucoma. Katrina Georges MD OPHTH PHOTOGRAPHY Final Resul t from Last 3 Months or Most Recently Relevant to Health Maintenance Insurance [employer] [address] Care Teams Crane Mechanic Relationship Specialty Start Date End Date Katrina Georges MD [address] [place] [address] PCP - General Family Medicine 12/20/22 Lolly Chowdary LPN Licensed Practical Nurse Family Medicine 07/31/24
--- OUTSIDE RECORDS SUMMARY | 2024-11-14 18:40 | XMS_ITS | Encounter Summary ---
Author Organization [facility] Address [address] [place] [address] Care Team Providers Care Site Monitor Name Role Phone Katrina Georges MD Primary Care Provider [phone] Lolly Chowdary LPN Unavailable [phone] Encounter Details Date Type Department Care Team (Late st Contact Info) Description 11/02/2024 Patient Outreach [facility] [address] [facility] [place] [id number] Lolly Chowdary LPN Social History Tobacco Use Types Packs/Day Years Used Date Smoking Tobacco: Former Cigarettes Q uit: 06/24/2005 Smokeless Tobacco: Never Alcohol Use Standard Drinks/Week Comments Not Currently 0 (1 standard drink = 0.6 oz pur e alcohol) Caffeine intake: none PHQ-2 Answer Date Recorded Patient Health Questionnaire-2 Score 0 09/24/2024 Sex and Gender Information Value Date Recorded Sex Assigned at Not on file Legal Sex Male 7:01 PM EDT Gender Identity Male 09/05/2022 7:01 PM EDT Sexual Orientation Not on file documented as of this encounter Progress Notes * Lolly Chowdary LPN - 11/02/2024 12:53 PM EDT Pc with questions regarding joann sensors. Order reviewed with pt while on phone and informed that company has processed order and attempted to make contact with him in order to ship out product. Pt states that he doesn't answer numbers he doesn't know because of being scammed in the past. States that he hasn't received any calls or vm that he is aware of. Direct contact number given to pt to call and confirm order. Enc to call back if further assistance is needed. documented in this encounter Plan of Treatment Upcoming Encounters Date Type Department Care Team (Late st Contact Info) Description 01/01/2025 2:00 PM EDT Office Visit [facility] [address] [place] [address] Katrina Georges MD [address] [place], [place] [phone] documented as of this encounter Visit Diagnoses Diagnosis Type 2 diabetes mellitus with hyperglycemia, unspecified whether sound equipment mechanic insulin use (CMS/[facility])- Primary Mixed hyperlipidemia ([facility]) Mixed hyperlipidemia documented in this encounter Additional Health Concerns Assessment Noted Time PHQ-9 Depression Total Score: 14 025 1:00 PM EST documented as of this encounter Care Teams Site Monitor Relationship Specialty Start Date End Date Katrina Georges MD [address] [place], [place] [phone] PCP - General Family Medicine 12/20/22 Lolly Chowdary LPN Licensed Practical Nurse Family Medicine 07/31/24 documented as of this encounter
--- OUTSIDE RECORDS SUMMARY | 2024-11-14 18:40 | XMS_ITS | Encounter Summary ---
Author Organization [facility] Address [address] [place] [address] Care Team Providers Care Consumer Electronics Merchandiser Name Role Phone Katrina Georges MD Primary Care Provider [phone] Lolly Chowdary LPN Unavailable [phone] Encounter Details Date Type Department Care Team (Late st Contact Info) Description 08/04/2024 Orders Only [facility] [address] [place] [address] Katrina Georges MD [address] [place], [place] [id number] Social History Tobacco Use Types Packs/Day Years Used Date Smoking Tobacco: Former Cigarettes Q uit: 06/24/2005 Smokeless Tobacco: Never Alcohol Use Standard Drinks/Week Comments Not Currently 0 (1 standard drink = 0.6 oz pur e alcohol) Caffeine intake: none PHQ-2 Answer Date Recorded Patient Health Questionnaire-2 Score 3 07/31/2024 Sex and Gender Information Value Date Recorded Sex Assigned at Not on file Legal Sex Male 7:01 PM EDT Gender Identity Male 09/05/2022 7:01 PM EDT Sexual Orientation Not on file documented as of this encounter Plan of Treatment Upcoming Encounters Date Type Department Care Team (Late st Contact Info) Description 01/01/2025 2:00 PM EDT Office Visit [facility] [address] [place] [address] Katrina Georges MD [address] [place], [place] [address] documented as of this encounter Visit Diagnoses Not on filedocumented in this encounter Additional Health Concerns Assessment Noted Time PHQ-9 Depression Total Score: 14 025 1:00 PM EST documented as of this encounter Care Teams Consumer Electronics Merchandiser Relationship Specialty Start Date End Date Katrina Georges MD [address] [place] [address] PCP - General Family Medicine 12/20/22 Lolly hCowdary LPN Licensed Practical Nurse Family Medicine 07/31/24 documented as of this encounter
--- OUTSIDE RECORDS SUMMARY | 2024-11-14 18:40 | XMS_ITS | Encounter Summary ---
Author Organization [facility] Address [address] [place] [address] Care Team Providers Care Cone Machine Operator Name Role Phone Katrina Georges MD Unavailable [phone] Katrina Georges MD Primary Care Provider [phone] Katrina Georges MD Unavailable [phone] Lolly Chowdary LPN Unavailable [phone] Encounter Details Date Type Department Care Team (Late Contact Info) Description 03/30/2023 Abstract [facility] [address] [place] [phone] Germán Palomares DPM [address] [place], [place] [phone] Social History Tobacco Use Types Packs/Day Years Used Date Smoking Tobacco: Former Cigarettes Q uit: 06/24/2005 Alcohol Use Standard Drinks/Week Comments Not Currently 0 (1 standard drink = 0.6 oz pur e alcohol) PHQ-2 Answer Date Recorded Patient Health Questionnaire-2 Score 0 12/20/2022 Sex and Gender Information Value Date Recorded Sex Assigned at Not on file Legal Sex Male 7:01 PM EDT Gender Identity Male 09/05/2022 7:01 PM EDT Sexual Orientation Not on file documented as of this encounter Plan of Treatment Upcoming Encounters Date Type Department Care Team (Late Contact Info) Description 01/01/2025 2:00 PM EDT Office Visit [facility] [address] [facility] [address] [facility] [place] [address] Katrina Georges MD [address] [place], [place] [phone] documented as of this encounter Visit Diagnoses Not on filedocumented in this encounter Care Teams Cone Machine Operator Relationship Specialty Start Date End Date Katrina Georges MD [address] [facility] [address] [place], [place] [phone] PCP - [facility] 06/24/21 04/23/23 Katrina Georges MD [address] [facility] [address] [place], [place] [address] PCP - General Family Medicine 12/20/22 Katrina Georges MD [address] [facility] [address] [place], [place] [id number] PCP - [facility] 06/24/23 07/26/24 Lolly Chowdary LPN Licensed Practical Nurse Family Medicine 07/31/24 documented as of this encounter
--- OUTSIDE RECORDS SUMMARY | 2024-11-14 18:40 | XMS_ITS | Encounter Summary ---
Author Organization [facility] Address [address] [place] [address] Care Team Providers Care Systems Security Analyst Name Role Phone Katrina Georges MD Unavailable [phone] Katrina Georges MD Primary Care Provider [phone] Katrina Georges MD Unavailable [phone] Lolly Chowdary LPN Unavailable [phone] Reason for Visit * Reason Comments Med Refill Encounter Details Date Type Department Care Team (Late st Contact Info) Description 12/31/2022 Refill [facility] [address] [place] [address] Katrina Georges MD [address] [place], [place] [phone] Dysphagia, pharyngoesophageal phase (Primary Dx) Social History Tobacco Use Types Packs/Day Years Used Date Smoking Tobacco: Former Cigarettes PHQ-2 Answer Date Recorded Patient Health Questionnaire-2 Score 0 12/20/2022 Sex and Gender Information Value Date Recorded Sex Assigned at Not on file Legal Sex Male 7:01 PM EDT Gender Identity Male 09/05/2022 7:01 PM EDT Sexual Orientation Not on file documented as of this encounter Miscellaneous Notes * Telephone Encounter - Katrina Georges MD - 12/31/2022 1:02 PM EDT Refills sent. documented in this encounter Plan of Treatment Upcoming Encounters Date Type Department Care Team (Late st Contact Info) Description 01/01/2025 2:00 PM EDT Office Visit [facility] [address] [place] [place] [address] Katrina Georges MD [address] [facility] [place] [address] documented as of this encounter Visit Diagnoses Diagnosis Dysphagia, pharyngoesophageal phase- Primary documented in this encounter Care Teams Systems Security Analyst Relationship Specialty Start Date End Date Katrina Georges MD [address] [facility] [place] [address] P[address] - [facility] 06/24/21 04/23/23 Katrina Georges MD [address] [facility] [place] [address] PCP - General Family Medicine 12/20/22 Katrina Georges MD [address] [facility] [place] [address] [address] - [facility] 06/24/23 07/26/24 Lolly Chowdary LPN Licensed Practical Nurse Family Medicine 07/31/24 documented as of this encounter
--- OUTSIDE RECORDS SUMMARY | 2024-11-14 18:40 | XMS_ITS | Encounter Summary ---
Author Organization [facility] Address [address] [place] [address] Care Team Providers Care Social Studies Department Chair Name Role Phone Katrina Georges MD Unavailable Katrina Georges MD Primary Care Provider [phone] Katrina Georges MD Unavailable [phone] Lolly Chowdary LPN Unavailable [phone] Reason for Visit * Reason Comments Med Refill Encounter Details Date Type Department Care Team (Late st Contact Info) Description 04/21/2023 Refill [facility] [address] [place] [address] Katrina Georges MD [address] [place] [address] Recurrent major depression in full remission (CMS/HCC) (Primary Dx) Social History Tobacco Use Types [...] encounter Miscellaneous Notes * Telephone Encounter - Hamida Muniz NP - 04/23/2023 10:07 AM EDT Due for DM appointment, please schedule documented in this encounter Plan of Treatment Upcoming Encounters Date Type Department Care Team (Late st Contact Info) Description 01/01/2025 2:00 PM EDT Office Visit [facility] [address] [place] [address] Katrina Georges MD [address] [facility] [place] [address] documented as of this encounter Visit Diagnoses Diagnosis Recurrent major depression in full remission (CMS/HCC)- Primary documented in this encounter Care Teams Social Studies Department Chair Relationship Specialty Start Date End Date Katrina Georges MD [address] [place] [address] PCP - [facility] 06/24/21 04/23/23 Katrina Georges MD [address] [facility] [place] [address] PCP - General Family Medicine 12/20/22 Katrina Georges MD [address] [facility] [place] [address] PCP - [facility] 06/24/23 07/26/24 Lolly Chowdary LPN Licensed Practical Nurse Family Medicine 07/31/24 documented as of this encounter
--- OUTSIDE RECORDS SUMMARY | 2024-11-14 18:40 | XMS_ITS | Encounter Summary ---
Author Organization [facility] Address [address] [place] [address] Care Team Providers Care Ear Machine Operator Name Role Phone Katrina Georges MD Primary Care Provider Katrina Georges MD Unavailable [phone] Lolly Chowdary LPN Unavailable [phone] Encounter Details Date Type Department Care Team (Late Contact Info) Description 08/11/2023 Orders Only [facility] [address] [place] [address] Katrina Georges MD [address] [place], [place] [address] Type 2 diabetes mellitus with hyperglycemia, with long-term current use of insulin ([facility]) Social History Tobacco Use Types Packs/Day Years Used Date Smoking Tobacco: Former Cigarettes Q uit: 06/24/2005 Smokeless Tobacco: Never Alcohol Use Standard Drinks/Week Comments Not Currently 0 (1 standard drink = 0.6 oz pur e alcohol) Caffeine intake: none PHQ-2 Answer Date Recorded Patient Health Questionnaire-2 Score 3 08/09/2023 Sex and Gender Information Value Date Recorded Sex Assigned at Not on file Legal Sex Male 7:01 PM EDT Gender Identity Male 09/05/2022 7:01 PM EDT Sexual Orientation Not on file documented as of this encounter Plan of Treatment Upcoming Encounters Date Type Department Care Team (Late st Contact Info) Description 01/01/2025 2:00 PM EDT Office Visit [facility] [address] [place] [address] Katrina Georges MD [address] [place], [place] [phone] documented as of this encounter Visit Diagnoses Diagnosis Type 2 diabetes mellitus with hyperglycemia, with long-term current use of insulin ([facility]) documented in this encounter Additional Health Concerns Assessment Noted Time PHQ-9 Depression Total Score: 13 024 2:00 PM EST documented as of this encounter Care Teams Ear Machine Operator Relationship Specialty Start Date End Date Katrina Georges MD [address] [place] [address] PCP - General Family Medicine 12/20/22 Katrina Georges MD [address] [place] [address] PCP - [facility] 06/24/23 07/26/24 Lolly Chowdary LPN Licensed Practical Nurse Family Medicine 07/31/24 documented as of this encounter
--- OUTSIDE RECORDS SUMMARY | 2024-11-14 18:40 | XMS_ITS | Encounter Summary ---
Author Organization [facility] Address [address] [place] [address] Care Team Providers Care Traffic Coordinator Name Role Phone Katrina Georges MD Unavailable [phone] Katrina Georges MD Primary Care Provider [phone] Katrina Georges MD Unavailable [phone] Lolly Chowdary LPN Unavailable [phone] Encounter Details Date Type Department Care Team (Late Contact Info) Description 02/18/2023 Abstract [facility] [address] [facility] [address] [place] [address] Malinda Velázquez MD [address] [facility] [address] [place] [address] Social History Tobacco Use Types Packs/Day Years [...] EDT Office Visit [facility] [address] [facility] [place] [address] Katrina Georges MD [address] [place], [place] [address] documented as of this encounter Visit Diagnoses Not on filedocumented in this encounter Care Teams Traffic Coordinator Relationship Specialty Start Date End Date Katrina Georges MD [address] [facility] [address] [place], [place] [address] PCP - [facility] 06/24/21 04/23/23 Katrina Georges MD [address] [facility] [address] [place], [place] [address] PCP - General Family Medicine 12/20/22 Katrina Georges MD [address] [facility] [address] [place], [place] [address] PCP - [facility] 06/24/23 07/26/24 Lolly Chowdary LPN Licensed Practical Nurse Family Medicine 07/31/24 documented as of this encounter
--- OUTSIDE RECORDS SUMMARY | 2024-11-14 18:40 | XMS_ITS | Encounter Summary ---
Author Organization [facility] Address [address] [place] [address] Care Team Providers Care Roller Checker Name Role Phone Katrina Georges MD Unavailable [phone] Katrina Georges MD Primary Care Provider [phone] Katrina Georges MD Unavailable [phone] Lolly Chowdary LPN Unavailable [phone] Encounter Details Date Type Department Care Team (Late st Contact Info) Description 03/20/2023 Clinisync Result Encounter [facility] External Department Unsolicited Provider, Generic External Data Social History Tobacco Use Types Packs/Day Years [...] 2:00 PM EDT Office Visit [facility] [address] [place] [address] Katrina Georges MD [address] [place] [address] documented as of this encounter Procedures Procedure Name Priority Date/Time Associated Diagnosis Comments CT FLANK WO IVCON 03/20/2023 8:4 1 AM EDT documented in this encounter Results * CT FLANK WO IVCON (03/20/2023 8:41 AM EDT) Anatomical Region Laterality Modality Other 03/20/2023 8:41 AM EDT Narrative 03/20/2023 10:53 AM EDT * * *Final Report* * * DATE OF EXAM: Mar 20 2023 8:41AM [facility] 0529 - CT FLANK WO IVCON / PROCEDURE REASON: Nephrolithiasis * * * * Physician Interpretation * * * * RESULT: EXAMINATION: CT ABDOMEN AND PELVIS WITHOUT IV CONTRAST (Renal stone protocol) CLINICAL HISTORY: Renal stones, follow-up TECHNIQUE: Non-contrast imaging of the abdomen and pelvis was performed through the urinary tract. Study performed without intravenous or oral contrast to evaluate for urinary tract calculus. MQ: [id number] Contrast: IV contrast: None Oral contrast: None CT Radiation dose: Integrated dose-length product (DLP) for this visit = 876 mGy*cm. CT Dose Reduction Employed: mAs-kVp adjusted based on patient size-age COMPARISON: 09/22/22 from outside institution. RESULT: Limitations: Unenhanced imaging is limited for the evaluation of some renal and other intra-abdominal and pelvic pathology. Urinary Tract: Right kidney and ureter: No calculus. No hydronephrosis. No finding to suggest cyst or mass in the unenhanced kidney. Left kidney and ureter: 1.3 x 0.4 cm nonobstructing left renal stone (2:63), previously 1.3 x 0.4 cm, stable. No hydronephrosis. No finding to suggest cyst or mass in the unenhanced kidney. Bladder: No calculus. Abdomen and Pelvis: Liver: No evidence of a mass as limited by noncontrast technique. Biliary: The gallbladder is absent. Spleen: Mildly enlarged measuring 15 cm in length, stable. Pancreas: No evidence of a mass as limited by noncontrast technique. . Adrenals: Normal. GI Tract: No bowel dilation. Short segment small bowel-small bowel intussusception is incidentally noted (2:88). Lymph Nodes: No lymphadenopathy. Mesentery/peritoneum: No ascites. Vasculature: Arterial atherosclerotic disease without aneurysm. Pelvis: No mass or ascites. Urinary bladder is decompressed. Bones and Soft Tissues: No new osseous abnormalities. Lower thorax: No focal consolidation.. Computer Programming Manager (topogram) images: No additional findings. IMPRESSION: 1. 1.3 cm nonobstructing left renal stone, stable since 09/22/22. 2. No evidence of obstructing renal stones, hydronephrosis or hydroureter. 3. Short segment small bowel-small bowel intussusception, most likely a transient incidental finding. However, in the appropriate clinical scenario, this can be associated with malabsorption syndromes and small bowel lesions. Transcribe Date/Time: Mar 20 2023 9:53A Dictated by: DANNI KHAN MD This examination was interpreted and the report reviewed and electronically signed by: DANNI KHAN MD on Mar 20 2023 10:51AM EST Thank you for allowing us to participate in the care of your patient. Should there be any questions regarding this interpretation, please call [phone]. If you are unable to reach us at the number above, please feel free to contact [facility] at [phone]. [id number] Procedure Note Radiology, Radiologist, - 03/20/2023 * * *Final Report* * * DATE OF EXAM: Mar 20 2023 8:41AM [facility] 0529 - CT FLANK WO IVCON / PROCEDURE REASON: Nephrolithiasis * * * * Physician Interpretation * * * * RESULT: EXAMINATION: CT ABDOMEN AND PELVIS WITHOUT IV CONTRAST (Renal stone protocol) CLINICAL HISTORY: Renal stones, follow-up TECHNIQUE: Non-contrast imaging of the abdomen and pelvis was performed through the urinary tract. Study performed without intravenous or oral contrast to evaluate for urinary tract calculus. MQ: [id number]_1 Contrast: IV contrast: None Oral contrast: None CT Radiation dose: Integrated dose-length product (DLP) for this visit = 876 mGy*cm. CT Dose Reduction Employed: mAs-kVp adjusted based on patient size-age COMPARISON: 09/22/22 from outside institution. RESULT: Limitations: Unenhanced imaging is limited for the evaluation of some renal and other intra-abdominal and pelvic pathology. Urinary Tract: Right kidney and ureter: No calculus. No hydronephrosis. No finding to suggest cyst or mass in the unenhanced kidney. Left kidney and ureter: 1.3 x 0.4 cm nonobstructing left renal stone (2:63), previously 1.3 x 0.4 cm, stable. No hydronephrosis. No finding to suggest cyst or mass in the unenhanced kidney. Bladder: No calculus. Abdomen and Pelvis: Liver: No evidence of a mass as limited by noncontrast technique. Biliary: The gallbladder is absent. Spleen: Mildly enlarged measuring 15 cm in length, stable. Pancreas: No evidence of a mass as limited by noncontrast technique. . Adrenals: Normal. GI Tract: No bowel dilation. Short segment small bowel-small bowel intussusception is incidentally noted (2:88). Lymph Nodes: No lymphadenopathy. Mesentery/peritoneum: No ascites. Vasculature: Arterial atherosclerotic disease without aneurysm. Pelvis: No mass or ascites. Urinary bladder is decompressed. Bones and Soft Tissues: No new osseous abnormalities. Lower thorax: No focal consolidation.. Computer Programming Manager (topogram) images: No additional findings. IMPRESSION: 1. 1.3 cm nonobstructing left renal stone, stable since 09/22/22. 2. No evidence of obstructing renal stones, hydronephrosis or hydroureter. 3. Short segment small bowel-small bowel intussusception, most likely a transient incidental finding. However, in the appropriate clinical scenario, this can be associated with malabsorption syndromes and small bowel lesions. Transcribe Date/Time: Mar 20 2023 9:53A Dictated by: DANNI KHAN MD This examination was interpreted and the report reviewed and electronically signed by: DANNI KHAN MD on Mar 20 2023 10:51AM EST Thank you for allowing us to participate in the care of your patient. Should there be any questions regarding this interpretation, please call [phone]. If you are unable to reach us at the number above, please feel free to contact [facility] at [phone]. [id number] us Generic External Data Provider [facility] Final Result documented in this encounter Visit Diagnoses Not on filedocumented in this encounter Care Teams Roller Checker Relationship Specialty Start Date End Date Katrina Georges MD [address] [place] [address] PCP - [facility] 06/24/21 04/23/23 Katrina Georges MD [address] [facility] [place] [address] PCP - General Family Medicine 12/20/22 Katrina Georges MD [address] [place] [address] PCP - [facility] 06/24/23 07/26/24 Lolly Chowdary LPN Licensed Practical Nurse Family Medicine 07/31/24 documented as of this encounter
--- OUTSIDE RECORDS SUMMARY | 2024-11-14 18:40 | XMS_ITS | Encounter Summary ---
Author Organization [facility] Address [address] [place] [address] Care Team Providers Care Recorder Helper Seismograph Name Role Phone Katrina Georges MD Primary Care Provider [phone] Katrina Georges MD Unavailable [phone] Lolly Chowdary LPN Unavailable [phone] Encounter Details Date Type Department Care Team (Late Contact Info) Description 04/17/2024 Abstract [facility] [address] [place] [address] Katrina Georges MD [address] [place] [address] Social History Tobacco Use Types Packs/Day Years Used Date Smoking Tobacco: Former Cigarettes Q uit: 06/24/2005 Smokeless Tobacco: Never Alcohol Use Standard Drinks/Week Comments Not Currently 0 (1 standard drink = 0.6 oz pur e alcohol) Caffeine intake: none PHQ-2 Answer Date Recorded Patient Health Questionnaire-2 Score 3 01/24/2024 Sex and Gender Information Value Date Recorded Sex Assigned at Not on file Legal Sex Male 7:01 PM EDT Gender Identity Male 09/05/2022 7:01 PM EDT Sexual Orientation Not on file documented as of this encounter Plan of Treatment Upcoming Encounters Date Type Department Care Team (Late Contact Info) Description 01/01/2025 2:00 PM EDT Office Visit [facility] [address] [facility] [place] [address] Katrina Georges MD [address] [place] [address] documented as of this encounter Visit Diagnoses Not on filedocumented in this encounter Additional Health Concerns Assessment Noted Time PHQ-9 Depression Total Score: 14 024 2:40 PM EDT documented as of this encounter Care Teams Recorder Helper Seismograph Relationship Specialty Start Date End Date Katrina Georges MD [address] [facility] [address] [place], [place] [id number] PCP - General Family Medicine 12/20/22 Katrina Georges MD [address] [facility] [place] [address] PCP - [facility] 06/24/23 07/26/24 Lolly Chowdary LPN Licensed Practical Nurse Family Medicine 07/31/24 documented as of this encounter
--- OUTSIDE RECORDS SUMMARY | 2024-11-14 18:40 | XMS_ITS | Encounter Summary ---
Author Organization [facility] Address [address] [place] [address] Care Team Providers Care Teaching Music Lessons Name Role Phone Katrina Georges MD Primary Care Provider [phone] Katrina Georges MD Unavailable [phone] Lolly Chowdary LPN Unavailable [phone] Encounter Details Date Type Department Care Team (Late Contact Info) Description 06/14/2023 Abstract [facility] [address] [place] [address] Katrina Georges MD [address] [place] [address] Social History Tobacco Use Types Packs/Day Years Used Date Smoking Tobacco: Former Cigarettes Q uit: 06/24/2005 Smokeless Tobacco: Never Alcohol Use Standard Drinks/Week Comments Not Currently 0 (1 standard drink = 0.6 oz pur e alcohol) Caffeine intake: none PHQ-2 Answer Date Recorded Patient Health Questionnaire-2 Score 6 05/02/2023 Sex and Gender Information Value Date Recorded Sex Assigned at Not on file Legal Sex Male 7:01 PM EDT Gender Identity Male 09/05/2022 7:01 PM EDT Sexual Orientation Not on file documented as of this encounter Plan of Treatment Upcoming Encounters Date Type Department Care Team (Late Contact Info) Description 01/01/2025 2:00 PM EDT Office Visit [facility] [address] [facility] [place] [address] Katrina Georges MD [address] [place] [address] documented as of this encounter Visit Diagnoses Not on filedocumented in this encounter Additional Health Concerns Assessment Noted Time PHQ-9 Depression Total Score: 18 023 1:20 PM EST documented as of this encounter Care Teams Teaching Music Lessons Relationship Specialty Start Date End Date Katrina Georges MD [address] [facility] [address] [place], [place] [id number] PCP - General Family Medicine 12/20/22 Katrina Georges MD [address] [facility] [place] [address] PCP - [facility] 06/24/23 07/26/24 Lolly Chowdary LPN Licensed Practical Nurse Family Medicine 07/31/24 documented as of this encounter
--- OUTSIDE RECORDS SUMMARY | 2024-11-14 18:40 | XMS_ITS | Encounter Summary ---
Author Organization [facility] Address [address] [place] [address] Care Team Providers Care Senior Telecommunications Technician Name Role Phone Katrina Georges MD Primary Care Provider [phone] Lolly Chowdary LPN Unavailable [phone] Encounter Details Date Type Department Care Team (Late st Contact Info) Description 08/05/2024 Abstract [facility] [address] [place] [id number] Lolly Chowdary LPN Social History Tobacco Use [...] 2:00 PM EDT Office Visit [facility] [address] [facility] [place] [address] Katrina Georges MD [address] [facility] [place] [address] documented as of this encounter Visit Diagnoses Not on filedocumented in this encounter Additional Health Concerns Assessment Noted Time PHQ-9 Depression Total Score: 14 025 1:00 PM EST documented as of this encounter Care Teams Senior Telecommunications Technician Relationship Specialty Start Date End Date Katrina Georges MD [address] [place] [address] PCP - General Family Medicine 12/20/22 Lolly Chowdary LPN Licensed Practical Nurse Family Medicine 07/31/24 documented as of this encounter
--- OUTSIDE RECORDS SUMMARY | 2024-11-14 18:40 | XMS_ITS | Clinical Summary ---
Author Organization [facility] Address [address] [place] [address] Care Team Providers Care Steamfitter Name Role Phone Katrina Georges Primary Care Provider [phone] Allergies Active Allergy Reactions Criticality Noted Date Comments Adhesive Itching 03/24/2018 Uses paper tape Adhesive Tape (Rosins) Unknown 07/28/2015 Adhesive Tape-Silicones Itching 11/13/2022 Latex Itching 03/24/2018 Lisinopril Cough 04/15/2012 Medications metFORMIN 500 mg tablet Take 1 tablet by mouth twice daily. 0 04/15/20 12 Active losartan (COZAAR) 50 mg tablet Take 1 tablet by mouth once daily. 0 04/15/20 12 Active simvastatin (ZOCOR) 20 mg tablet Take 1 tablet by mouth daily at bedtime. 0 04/15/20 12 Active citalopram (CELEXA) 40 mg tablet Take 1 tablet by mouth once daily. 0 04/15/20 12 Active CELEBREX 100 mg capsule 03/06/20 12 Active PREDNISONE 20 mg tablet 04/25/20 12 Active SUPREP 17.5-3.13-1.6 gram SolR 03/28/20 12 Active acetaminophen-HY DROcodone 5-500 mg tablet Take 2 tablets by mouth every 6 hours as needed for Pain. 50 tablet 0 05/23/20 12 Active allopurinol (ZYLOPRIM) 300 mg tablet Take 300 mg by mouth. Active insulin degludec (TRESIBA FLEXTOUCH U-100) 100 unit/mL (3 mL) injection Inject 40 Units subcutaneously. Active liraglutide (VICTOZA) 0.6 mg/ 0.1 ml subcutaneous pen injector Inject 1.2 mg subcutaneously. Active buPROPion (WELLBUTRIN) 75 mg tablet Take 75 mg by mouth twice daily. Active HYDROcodone-Acet aminophen (VICODIN) 5-300 mg tab Take 1 tablet by mouth every 6 hours as needed. Active naproxen (NAPROSYN) 500 mg tablet take 1 tablet by mouth every 12 hours if needed for pain WITH FOOD OR MILK 0 02/07/20 19 Active semaglutide (OZEMPIC SUBCUTANEOUS) Inject subcutaneously. Active insulin 70/30 NPH/regular units/mL (NOVOLIN 70-30 FLEXPEN U-100) 100 unit/mL (70-30) Inject subcutaneously twice daily with meals. Active IRBESARTAN ORAL Take by mouth. Active potassium citrate ER (UROCIT-K 10) 10 mEq (1,080 mg) Take 2 tablets by mouth four times daily. 240 tablet 3 07/26/19 24 Active Active Problems Problem Noted Date Diagnosed Date Nephrolithiasis 11/13/2022 Diabetes mellitus, non-insulin dependent (NIDDM or type II) 11/13/2022 Gout with manifestations 11/13/2022 Abnormal urinalysis 11/13/2022 Essential hypertension 11/13/2022 Former smoker 11/13/2022 Hematochezia 05/09/2012 Hematuria 05/09/2012 Family History Medical History Relation Comments Alcohol/Drug Father Diabetes Father Cancer Mother Relation Status Comments Father Mother Social History Tobacco Use Types Packs/Day Years Used Date Smoking Tobacco: Former Cigarettes 2 30 1 07/13/1975 - 05/13/2006 Smokeless Tobacco: Never Tobacco Cessation:Counseling Given: Not Answered Alcohol Use Standard Drinks/Week Comments No 0 (1 standard drink = 0.6 oz pur e alcohol) Area Deprivation Index Answer Date Viktor rded National Score (1-100), lower number is lower ri sk 74 03/26/2023 State Score (1-10), lower number is lower risk 6 03/26/2023 Data from: https://www.neighborhoodatlas.medicine.[facility].edu/. Last address used for calculation [address] 03/26/2023 Sex and Gender Information Value Date Recorded Sex Assigned at Not on file Legal Sex Male 10:17 AM EST Gender Identity Not on file Sexual Orientation Not on file Last Filed Vital Signs Vital Sign Reading Time Taken Comments Blood Pressure 132/84 11/13/2022 11:57 AM EDT Pulse 84 11/13/2022 11:57 AM EDT Temperature - - Respiratory Rate - - Oxygen Saturation - - Inhaled Oxygen Concentration - - Weight 139.5 kg (307 lb 9.6 oz) 023 11:57 AM EDT Height 180.3 cm (5' 11 ) 11/13/2022 11: 57 AM EDT per pt Body Mass Index 42.9 11/13/2022 11:57 AM EDT Plan of Treatment Health Maintenance Due Date Last Done Comments Abdominal Aortic Aneurysm Screening 1957 Diabetic Foot Exam 1967 Dilated Retinal Exam 1967 Urine Albumin:Creatinine Ratio 1967 Annual PCP Team Chronic Dise ase Visit 1975 Anxiety Screening 1975 BP Controlled (<130/80) 1975 Depression Screening 1975 Hepatitis C Screening 1975 CT Colonography 2002 Cologuard (FIT-DNA) 2002 Colonoscopy 2002 Colorectal Cancer Screening 2002 Fecal Occult Blood 2002 Sigmoidoscopy 2002 Shingrix Vaccine (1 of 2) 2007 RSV Vaccine (1 - Risk 60-74 years 1-dose series) 2017 HbA1C 02/07/2024 08/09/2023, 09/23, 08/21/2022 Covid-19 Vaccine (3 - 2023-2 5 season) 2024 10/18/2020, 09/27/2020 Advance Directive Discussion 06/24/2024 LDL Cholesterol 08/09/2024 08/09/2023 Influenza Vaccine (Season Ended) 2025 05/02/2023, 05/22/2022, 03/16/2021, Additional history exists Pneumococcal Vaccine: 50+ (3 of 3 - PCV20 or PCV21) 03/16/2026 03/16/2021, 05/28/2019, 05/27/2019 Prostate Cancer Screening Discussion 08/09/2028 08/09/2023 DTaP,Tdap,Td Vaccine (2 - Td or Tdap) 09/11/2033 09/12/2023 Insurance [facility] [employer] HMO Care Teams Steamfitter Relationship Specialty Start Date End Date Katrina Georges [address] [place] [id number] PCP - General Family Medicine 04/10/12
--- OUTSIDE RECORDS SUMMARY | 2024-11-14 18:40 | XMS_ITS | Encounter Summary ---
Author Organization [facility] Address [address] [place] [address] Care Team Providers Care Mirror Inspector Name Role Phone Katrina Georges MD Primary Care Provider [phone] Katrina Georges MD Unavailable [phone] Lolly Chowdary LPN Unavailable [phone] Encounter Details Date Type Department Care Team (Late Contact Info) Description 04/24/2024 Abstract [facility] [address] [facility] [place] [address] Katrina Georges MD [address] [place] [address] Social History Tobacco Use Types [...] PM EDT Office Visit [facility] [address] [facility] [place] [address] Katrina Georges MD [address] [place] [address] documented as of this encounter Visit Diagnoses Not on filedocumented in this encounter Additional Health Concerns Assessment Noted Time PHQ-9 Depression Total Score: 14 024 2:40 PM EDT documented as of this encounter Care Teams Mirror Inspector Relationship Specialty Start Date End Date Katrina Georges MD [address] [facility] [address] [place], [place] [id number] PCP - General Family Medicine 12/20/22 Katrina Georges MD [address] [facility] [place] [address] PCP - [facility] 06/24/23 07/26/24 Lolly Chowdary LPN Licensed Practical Nurse Family Medicine 07/31/24 documented as of this encounter
--- OUTSIDE RECORDS SUMMARY | 2024-11-14 18:40 | XMS_ITS | Encounter Summary ---
Author Organization [facility] Address [address] [place] [address] Care Team Providers Care Certified Veterinary Technician Name Role Phone Katrina Georges MD Primary Care Provider [phone] Lolly Chowdary LPN Unavailable [phone] Encounter Details Date Type Department Care Team (Late st Contact Info) Description 10/20/2024 Orders Only [facility] [address] [place] [address] Hamida Biggs MA Stenosis of right carotid artery Social History Tobacco Use Types Packs/Day Years [...] 01/01/2025 2:00 PM EDT Office Visit [facility] [address] [place] [address] Katrina Georges MD [address] [place] [address] documented as of this encounter Procedures Procedure Name Priority Date/Time Associated Diagnosis Comments AMB REFERRAL TO VASCULAR SURGERY Routine 10/20/2024 9:24 AM EDT Stenosis of right carotid artery AMB REFERRAL TO VASCULAR SURGERY Routine 10/20/2024 9:24 AM EDT Stenosis of right carotid artery documented in this encounter Results * Ambulatory referral to Vascular Surgery (10/20/2024 9:24 AM EDT) us Katrina Georges MD OUTPATIENT REFERRAL ORDERABLE S Final Result * Ambulatory referral to Vascular Surgery (10/20/2024 9:24 AM EDT) us Katrina Georges MD OUTPATIENT REFERRAL ORDERABLE S Final Result documented in this encounter Visit Diagnoses Diagnosis Stenosis of right carotid artery Occlusion and stenosis of carotid artery without mention of cerebral infarction documented in this encounter Additional Health Concerns Assessment Noted Time PHQ-9 Depression Total Score: 14 07/31/ 025 1:00 PM EST documented as of this encounter Care Teams Certified Veterinary Technician Relationship Specialty Start Date End Date Katrina Georges MD [address] [place] [address] PCP - General Family Medicine 12/20/22 Lolly Chowdary LPN Licensed Practical Nurse Family Medicine 07/31/24 documented as of this encounter
--- OUTSIDE RECORDS SUMMARY | 2024-11-14 18:40 | XMS_ITS | Encounter Summary ---
Author Organization [facility] Address [address] [place] [address] Care Team Providers Care Cupola Tapper Name Role Phone Katrina Georges MD Primary Care Provider [phone] Lolly Chowdary LPN Unavailable [phone] Reason for Referral * Consultation (Routine) - Authorized Specialty Diagnoses / Procedures Referred By Contac t Referred To Contact Neurosurgery Diagnoses Spinal stenosis of lumbar region without neurogenic claudication Katrina Georges MD [address] [place] [address] Phone: tel: fax: Ced Hamm MD [address] [place] [address] Phone: tel: fax: Referral ID Status Reason Start Date Expiration Date Visits Requested Visits Authorized [id number] Authorized Specialty Services Required 11/02/2024 05/01/2025 1 1 Encounter Details Date Type Department Care Team (Late st Contact Info) Description 11/02/2024 Orders Only [facility] [address] [place] [phone] Katrina Georges MD [address] [place] [address] Spinal stenosis of lumbar region without neurogenic claudication (Primary Dx) Social History Tobacco Use Types [...] EDT Office Visit [facility] [address] [place] [phone] Katrina Georges MD [address] [place], [place] [phone] Scheduled Referrals Name Type Priority Associated Diagnoses Orde r Schedule Ambulatory referral to Neurosurgery Outpatient Referral Routine Spinal stenosis of lumbar region without neurogenic claudication Expected: 11/02/2024 (Approximate), Expires: 05/05/2025 documented as of this encounter Visit Diagnoses Diagnosis Spinal stenosis of lumbar region without neurogenic claudication- Primary documented in this encounter Additional Health Concerns Assessment Noted Time PHQ-9 Depression Total Score: 14 025 1:00 PM EST documented as of this encounter Care Teams Cupola Tapper Relationship Specialty Start Date End Date Katrina Georges MD [address] [place], [place] [phone] PCP - General Family Medicine 12/20/22 Lolly Chowdary LPN Licensed Practical Nurse Family Medicine 07/31/24 documented as of this encounter
--- OUTSIDE RECORDS SUMMARY | 2024-11-14 18:40 | XMS_ITS | Encounter Summary ---
Author Organization [facility] Address [address] [place] [address] Care Team Providers Care Pricing Manager Name Role Phone DestiniYanet sheridanalicia Canseco Primary Care Provider [phone] Source Comments In the event this information is protected by the Federal Confidentiality of Alcohol and Drug AbusePatient Records regulations: The Federal rules restrict any use of the information to criminally investigate or prosecute any alcohol or drug abuse patient.[facility] Reason for Visit * Reason Onset Date Comments Refill Request 12/05/2023 Encounter Details Date Type Department Care Team ([facility] Contact Info) Description 12/05/2023 Refill Urology [address] [address] Charli Webb MD Refill Request Social History Tobacco Use Types Packs/Day Years Used Date Smoking Tobacco: Former Cigarettes 2 30 1 07/13/1975 - 05/13/2006 Smokeless Tobacco: Never Alcohol Use Standard Drinks/Week Comments No 0 (1 standard drink = 0.6 oz pur e alcohol) Area Deprivation Index Answer Date Viktor rded National Score (1-100), lower number is lower ri sk 74 03/26/2023 State Score (1-10), lower number is lower risk 6 03/26/2023 Data from: https://www.[facility]/. Last address used for calculation [address] 03/26/2023 Sex and Gender Information Value Date Recorded Sex Assigned at Not on file Legal Sex Male 10:17 AM EST Gender Identity Not on file Sexual Orientation Not on file documented as of this encounter Miscellaneous Notes * Telephone Encounter - Carmen Blackwell APRN.CNP - 12/06/2023 5:04 PM EDT Active prescription with refills available at the pharmacy. * Telephone Encounter - Carmen Azul - 12/05/2023 8:17 AM EDT Requested Prescriptions Pending Prescriptions Disp Refills potassium citrate ER (UROCIT-K 10) 10 mEq (1,080 mg) 240 tablet 3 Sig: Take 2 tablets by mouth four times daily. documented in this encounter Plan of Treatment Not on file documented as of this encounter Visit Diagnoses Not on filedocumented in this encounter Care Teams Pricing Manager Relationship Specialty Start Date End Date Katrina Georges [address] [place] [address] PCP - General Family Medicine 04/10/12 documented as of this encounter
--- OUTSIDE RECORDS SUMMARY | 2024-11-14 18:40 | XMS_ITS | Encounter Summary ---
Author Organization [facility] Address [address] [place] [address] Care Team Providers Care Physical Therapy Instructor Name Role Phone Katrina Georges MD Primary Care Provider [phone] Lolly Chowdary LPN Unavailable [phone] Encounter Details Date Type Department Care Team (Late st Contact Info) Description 11/09/2024 Telephone [facility] [address] [place] [address] Katrina Georges MD [address] [place], [place] [id number] Social History Tobacco Use Types Packs/Day Years [...] encounter Miscellaneous Notes * Telephone Encounter - Shaila García MA - 11/10/2024 1:40 PM EDT He called them and made an appointment for December 15. * Telephone Encounter - Tremaine Solares - 11/09/2024 4:46 PM EDT Bandar asking about referral that was sent for arthritis in his back and hip - he hasn't heard anything and he said it was awhile ago when it was sent - Wasn't sure which referral for sure - maybe they didn't receive referral thru fax - Please call Bandar and let him know [phone] documented in this encounter Plan of Treatment Upcoming Encounters Date Type Department Care Team (Late st Contact Info) Description 01/01/2025 2:00 PM EDT Office Visit [facility] [address] [facility] [place] [phone] Katrina Georges MD [address] [facility] [address] [place], [place] [phone] documented as of this encounter Visit Diagnoses Not on filedocumented in this encounter Additional Health Concerns Assessment Noted Time PHQ-9 Depression Total Score: 14 025 1:00 PM EST documented as of this encounter Care Teams Physical Therapy Instructor Relationship Specialty Start Date End Date Katrina Georges MD [address] [facility] [place] [address] PCP - General Family Medicine 12/20/22 Lolly Chowdary LPN Licensed Practical Nurse Family Medicine 07/31/24 documented as of this encounter
--- OUTSIDE RECORDS SUMMARY | 2024-11-14 18:40 | XMS_ITS | Patient Health Record ---
Author Organization [facility] [place] Address [address] [place] [address] Care Team Providers Care Contour Band Saw Operator Vertical Name Role Phone Destini WALLACE, Katrina Primary Care Provider Enid lemus Reason For Referral No Information Medications Medication SIG (Take, Route, Frequency, Duration) Notes Start Date End Date Status Losartan Potassium 50 mg 1 tablet BID Active Simvastatin 20 mg 1 tablet DAILY Active Claritin 10 mg 1 tablet DAILY Active Viagra 50 mg 1 PRN for 30 days 01/04/2014 Active Flonase 50 mcg/inh 1 spray DAILY Active Lancets Brand Dependant Box of 100 BID Active Vicodin 500 mg-5 mg 1 tablet Q8-12H Active CeleXA 40 mg 1 tablet DAILY A ctive metFORMIN HCl 500 mg 1 tablet BID Active Plan Of Treatment No Information Insurance Providers Payer Name Payer Address Payer Phone Subscriber Number Group Number Insured Name Patient Relationship to Insured Coverage Start Date Coverage End Date [facility] MEDICARE COMPLETE [address] [address] [place] [address] [phone] [id number] Bandar Gonzalez Self - patient is the insured 4 Medical (General) History Surgical History Surgery Date(Month/Year) Surgical / procedural history back surge ry, hand surgeries
--- OUTSIDE RECORDS SUMMARY | 2024-11-14 18:40 | XMS_ITS ---
Author Organization [facility] Address [address] [place] [address] Care Team Providers Care Maintenance Custodian Name Role Phone Katrina Georges MD Primary Care Provider [phone] Lolly Chowdary LPN Unavailable [phone] Chronic Care Management (CCM) Status:Enrolled (Active) Start date:07/31/2024 Enrollment date:07/31/2024 Enrollment reason:Referred by provider Overview Please assess for Care Management needs. Case Team Name Relationship Phone Lolly Chowdary LPN(Responsible Staff) Licensed Pra ctical Nurse [phone] Continued Care and Services Coordination
--- OUTSIDE RECORDS SUMMARY | 2024-11-14 18:40 | XMS_ITS | Encounter Summary ---
Author Organization [facility] Address [address] [place] [address] Care Team Providers Care Tape Machine Tailer Name Role Phone Katrina Georges MD Primary Care Provider Lolly Chowdary LPN Unavailable [phone] Reason for Referral * Consultation (Routine) - Closed Specialty Diagnoses / Procedures Referred By Contac t Referred To Contact Vascular Surgery Diagnoses Stenosis of right carotid artery Procedures MD OFFICE/OUTPATIENT [facility] 60 MINUTES Katrina Georges MD [address] [place] [address] Phone: tel: fax: Chevy Garcia MD Phone: tel: fax: Referral ID Status Reason Start Date Expiration Date V isits Requested Visits Authorized [id number] Closed Specialty Services Required 09/21/2024 03/20/2025 1 1 Encounter Details Date Type Department Care Team (Late st Contact Info) Description 09/18/2024 Orders Only [facility] [address] [place] [id number] Katrina Geroges MD [address] [place] [address] Stenosis of right carotid artery (Primary Dx); Polyp of colon, unspecified part of colon, unspecified type Social History Tobacco Use Types Packs/Day Years [...] PM EDT Office Visit [facility] [address] [facility] [place] [address] Katrina Georges MD [address] [facility] [place] [place], [place] [id number] documented as of this encounter Procedures Procedure Name Priority Date/Time Associated Diagnosis Comments AMB REFERRAL TO GASTROENTEROLOGY Routine 09/18/2024 2:38 PM EDT Polyp of colon, unspecified part of colon, unspecified type HM COLONOSCOPY Routine 09/18/2024 11:47 AM EDT documented in this encounter Results * Ambulatory referral to Vascular Surgery (10/20/2024 9:24 AM EDT) Result Karen Georges MD OUTPATIENT REFERRAL ORDERABLE S Final Result * Ambulatory referral to Gastroenterology (09/18/2024 2:38 PM EDT) us Katrina Georges MD OUTPATIENT REFERRAL ORDERABLE S Final Result * Hm Colonoscopy (09/18/2024 11:47 AM EDT) Anatomical Region Laterality Modality Other Result Karen Georges MD HEALTH MAINTENANCE Final Resu lt documented in this encounter Visit Diagnoses Diagnosis Stenosis of right carotid artery- Primary Occlusion and stenosis of carotid artery without mention of cerebral infarction Polyp of colon, unspecified part of colon, unspecified type documented in this encounter Additional Health Concerns Assessment Noted Time PHQ-9 Depression Total Score: 14 025 1:00 PM EST documented as of this encounter Care Teams Tape Machine Tailer Relationship Specialty Start Date End Date Katrina Georges MD [address] [place] [address] PCP - General Family Medicine 12/20/22 Lolly Chowdary LPN Licensed Practical Nurse Family Medicine 07/31/24 documented as of this encounter
--- OUTSIDE RECORDS SUMMARY | 2024-11-14 18:40 | XMS_ITS | Clinical Summary ---
Author Organization [facility] tem Address [id number] [address] [place] [address] Care Team Providers Care Software Tools Engineer Name Role Phone Katrina Georges MD Primary Care Provider [phone] Allergies Active Allergy Reactions Criticality Noted Date Comments Adhesive Itching 03/24/2018 Uses paper tape Latex Itching 03/24/2018 Lisinopril Cough 03/24/2018 Medications HYDROcodone-marciano taminophen (NORCO) 10-325 mg per tablet Take 1 tablet by mouth as needed for pain. Active citalopram (CeleXA) 40 mg tabletIndicatio ns:anxiety with depression Take 40 mg by mouth daily with breakfast. Active metoprolol tartrate (LOPRESSOR) 25 mg tablet Take 25 mg by mouth 2 (two) times a day. Active liraglutide (VICTOZA 2-GARDENIA) 0.6 mg/0.1 mL (18 mg/3 mL) pen injectorIndicat ions:type 2 diabetes mellitus Inject 1.2 mg under the skin nightly. Active insulin degludec (TRESIBA FLEXTOUCH U-100) 100 unit/mL (3 mL) insulin penIndications: type 2 diabetes mellitus Inject 40 Units under the skin nightly. Active bimatoprost (LUMIGAN) 0.01 % ophthalmic drops Instill 1 drop to eye nightly. 8 Active losartan (COZAAR) 25 mg tablet Take 25 mg by mouth daily. Active famotidine (PEPCID) 20 mg tablet 20 mg twice a day as needed for symptoms of heartburn 30 tablet 9 Active insulin NPH and regular human (NovoLIN 70/30) 100 unit/mL (70-30) insulin pen Novolin 70-30 FlexPen U-100 Insulin 100 unit/mL (70-30) subcutaneous INJECT 33 UNITS TWICE DAILY Active metFORMIN XR (GLUCOPHAGE XR) 500 mg 24 hr tablet metformin ER 500 mg tablet,extended release 24 hr take 1 tablet by mouth every evening with food Active naproxen (NAPROSYN) 500 mg tablet naproxen 500 mg tablet Active simvastatin (ZOCOR) 40 mg tablet 2 Active dulaglutide (TRULICITY SUBQ) Inject under the skin. Pt unsure of dose Active fluticasone propionate (FLONASE) 50 mcg/actuation nasal spray Administer 2 sprays into each nostril daily. Active Active Problems Problem Noted Date Diagnosed Date Cervical spine pain 08/09/2021 Thoracic spine pain 08/09/2021 Encounters Date Type Department Care Team Description 10/21/2024 1:33 PM EDT - 10/21/2024 11:59 PM EDT Hospital Encounter [facility] - Ultrasound [address] [place] [address] Kidney stone Discharge Disposition: Home 10/21/2024 Travel 09/04/2024 Travel from Last 3 Months Immunizations Immunization Administration Dates Next Due Tdap 09/12/2023 Family History Medical History Relation Name Comments Hyperlipidemia Brother 1 x4 Hypertension Brother 1 x4 Sleep apnea Brother 1 x4 Drug abuse Brother 2 x1 heroin od Diabetes Father Cancer Mother Heart disease Mother Lung cancer Mother Valvular heart disease Mother Anesthesia problems Neg Hx Relation Name Status Comments Brother 1 x4 Alive Brother 2 x1 Father Maternal Grandfather Maternal Grandmother Mother Paternal Grandfather Paternal Grandmother Sister 1 x3 Alive Sister 2 x1 Social History Tobacco Use Types Packs/Day Years Used Date Smoking Tobacco: Former Smokeless Tobacco: Never Tobacco Cessation:Counseling Given: Not Answered Alcohol Use Standard Drinks/Week Comments No 0 (1 standard drink = 0.6 oz pur e alcohol) AUDIT-C Answer Date Recorded Frequency of Alcohol Consumption Never 03/24/2018 Average Number of Drinks Not on file 018 Frequency of Binge Drinking Not on file 06/2017 Childcare Answer Date Recorded Childcare Unknown 12/03/2018 Employment Answer Date Recorded Employment Unknown 12/03/2018 Hunger Screening Answer Date Recorded Within the past 12 months we worried whether our food would run out before we got money to buy more. Never True 09/12/2023 Within the past 12 months th e food we bought just didn't last and we didn't have money to get more. Never True 09/12/2023 Purpose - Life Answer Date Recorded Purpose and direction in life Unknown Sex and Gender Information Value Date Recorded Sex Assigned at Not on file Legal Sex Male 11:33 AM EDT Gender Identity Not on file Sexual Orientation Not on file Last Filed Vital Signs Vital Sign Reading Time Taken Comments Blood Pressure 177/89 09/12/2023 4:00 PM EDT Pulse 70 09/12/2023 3:17 PM EDT Temperature 36.3 C (97.4 F) 09/12/2023 3:17 PM EDT Respiratory Rate 18 09/12/2023 3:17 PM EDT Oxygen Saturation 96% 09/12/2023 4:00 PM EDT Inhaled Oxygen Concentration - - Weight 136.5 kg (300 lb 14.4 oz) 09/12/2023 3:17 PM EDT Height 180.3 cm (5' 11 ) 09/12/2023 3:17 PM EDT Body Mass Index 41.97 09/12/2023 3:17 PM EDT Plan of Treatment Upcoming Encounters Date Type Department Care Team (Late st Contact Info) Description 11/24/2024 11:00 AM EDT Appointment [facility] - CT Imaging [address] [place] [address] Health Maintenance Due Date Last Done Comments Depression Screening 1969 Zoster (Shingles) Vaccine (1 of 2) 2007 Fall Risk Screening 2022 COVID-19 Vaccine (3 - 2023-2 5 season) 2024 10/18/2020, 09/27/2020 Adult BMI Screening 09/11/2024 09/12/2023 Tobacco Screening 09/11/2024 09/12/2023 Influenza Vaccine 02/22/2025 05/01/2024, , 05/22/2022, Additional history exists DTaP,Tdap and Td Vaccines (2 - Td or Tdap) 09/11/2033 09/12/2023 Medical Devices Not on file Procedures Procedure Name Priority Date/Time Associated Diagnosis Comments US RETROPERITONEAL LIMITED Routine 10/21/2024 3:19 PM EDT Kidney stone from Last 3 Months Results * Ultrasound retroperitoneal limited (10/21/2024 3:19 PM EDT) Anatomical Region Laterality Modality Body Ultrasound 10/26/2024 9:17 AM EDT Narrative 10/26/2024 9:17 AM EDT US RETROPERITONEAL LIMITED Clinical history:Kidney stone renal [...] Venkata Smith MD on 10/26/2024 9:17 AM Procedure Note Venkata Smith MD - 10/26/2024 US RETROPERITONEAL LIMITED Clinical history:Kidney stone renal calculus Comparison: 03/24/2024. Findings: Real-time sonographic evaluation of the kidneys performed. Kidney measures 10.8 x 4.7 x 5.1 cm. Left kidney measures 12.8 x 4.4 x 5.5cm. Cortical thickness and the right is 0.7 cm, the left 0.7 cm. Small left renal calculus is seen measuring 0.3 cm. Increased hepatic echotexture suggestive of diffuse hepatocellulardisease, most commonly diffuse hepatic steatosis. Impression: No renal collecting system dilatation. Small left superior renal pole calculus. Finalized by Venkata Smith MD on 10/26/2024 9:17 AM Wes Contreras MD IMG US ORDERABLES Final Result from Last 3 Months Insurance [facility] [id number] Care Teams Software Tools Engineer Relationship Specialty Start Date End Date Katrina Georges MD [address] [place] [address] PCP - General Family Medicine 09/12/23
--- OUTSIDE RECORDS SUMMARY | 2024-11-14 18:40 | XMS_ITS | Encounter Summary ---
Author Organization [facility] Address [address] [place] [address] Care Team Providers Care Psychological Tests Sales Agent Name Role Phone Katrina Georges MD Primary Care Provider [phone] Katrina Georges MD Unavailable [phone] Lolly Chowdary LPN Unavailable [phone] Encounter Details Date Type Department Care Team (Late Contact Info) Description 08/10/2023 Orders Only [facility] [address] [place] [address] Kiera Neal NP [address] [place], [place] [phone] Social History Tobacco Use Types Packs/Day Years [...] EDT Office Visit [facility] [address] [place] [address] Katrina Georges MD [address] [place], [place] [phone] documented as of this encounter Visit Diagnoses Not on filedocumented in this encounter Additional Health Concerns Assessment Noted Time PHQ-9 Depression Total Score: 13 024 2:00 PM EST documented as of this encounter Care Teams Psychological Tests Sales Agent Relationship Specialty Start Date End Date Katrina Georges MD [address] [place] [id number] PCP - General Family Medicine 12/20/22 Katrina Georges MD [address] [place] [phone] PCP - [facility] 06/24/23 07/26/24 Lolly Chowdary LPN Licensed Practical Nurse Family Medicine 07/31/24 documented as of this encounter
--- OUTSIDE RECORDS SUMMARY | 2024-11-14 18:40 | XMS_ITS | Encounter Summary ---
Author Organization [facility] tem Address [id number] [address] [place] [address] Care Team Providers Care Construction Equipment Mechanic Helper Name Role Phone Katrina Georges MD Primary Care Provider [phone] Reason for Visit * Reason Onset Date Comments Neck pain 08/21/2021 Encounter Details Date Type Department Care Team (Late st Contact Info) Description 08/21/2021 Telephone [facility] [address] [place] [phone] Do Nguyễn RN Neck pain Social History Tobacco Use Types Packs/Day Years Used Date Smoking Tobacco: Former Smokeless Tobacco: Never Alcohol Use Standard Drinks/Week Comments No 0 (1 standard drink = 0.6 oz pur e alcohol) AUDIT-C Answer Date Recorded Frequency of Alcohol Consumption Never 03/24/2018 Average Number of Drinks Not on file 018 Frequency of Binge Drinking Not on file 06/2017 Childcare Answer Date Recorded Childcare Unknown 12/03/2018 Employment Answer Date Recorded Employment Unknown 12/03/2018 Purpose - Life Answer Date Recorded Purpose and direction in life Unknown Sex and Gender Information Value Date Recorded Sex Assigned at Not on file Legal Sex Male 11:33 AM EDT Gender Identity Not on file Sexual Orientation Not on file COVID-19 Exposure Response Date Recorded In the last month, have you been in contact with someone who was confirmed or suspected to have Coronavirus / COVID-19? No / Unsure 08/17/2021 12:07 PM EST documented as of this encounter Miscellaneous Notes * Telephone Encounter - Do Nguyễn RN - 08/21/2021 12:12 PM EST Patient was seen as a new patient on 08/09/21. He had the thoracic and cervical x-rays on 08/17/21. Patient calls today with complaints of worsening right neck/shoulder/head pain. He states this pain is everywhere on the right side, his eye, his ear, even his hair is sensitive . He denies any additional injuries or changes since he was here, except they moved his head around in different ways during the x-rays. He is starting physical therapy on Saturday, 08/23. Patient has not tried Gabapentin. * Telephone Encounter - Marjorie Putnam PA-C - 08/21/2021 12:12 PM EST If he his asking for some form of pain relief he can start gabapentin 300mg TID titrate. However ifhe is just letting us know we can wait and see how PT goes and we can address it at his follow up. * Telephone Encounter - Do Nguyễn RN - 08/21/2021 12:12 PM EST Spoke with patient, he went to urgent care yesterday evening for the pain in his shoulder, head, and neck. He was started on Gabapentin and another medication. He is not sure the name, doses, nor howmany Gabapentin they gave him (his handles his medications). He was also diagnosed with shingles. Patient will obtain the names, doses, and quantity of medications prescribed and let us know. Hewill see how things go with these medications and if he needs additional Gabapentin he will let us know. * Telephone Encounter - Marjorie Putnam PA-C - 08/21/2021 12:12 PM EST noted * Telephone Encounter - Laney Escalera RN - 08/21/2021 12:12 PM EST Patient called office today requesting something for pain . He states that he went to urgent care for shingles and was prescribed gabapentin and valacyclovir. Patient states he is out of both medications and needs something for pain. Patient was asked if has followed up with his PCP since his dx of shingles. He states he has not. Patient was asked if shingles lesions are dried or open. Patient states they are open, oozing and burning. Patient is advised to f/u with PCP in regard to shingles. Per [place], patient was given script for Gabapentin 300 mg qty 30 for 10 days. The Gabapentin was filled on 08/22/2021. * Telephone Encounter - Marjorie Putnam PA-C - 08/21/2021 12:12 PM EST Agreed his family doc can treat shingles. We can if need to give him gabapentin but it appears he is over taking it. * Telephone Encounter - Harriet Falcon RN - 08/21/2021 12:12 PM EST Called pt to update with provider response. Pt becomes upset on phone, states he's in pain and thisoffice has done nothing to help him. Barbering Teacher requested clarification regarding gabapentin dosage he's currently taking. Pt states he's out of gabapentin and requests more. He's currently taking the medication one time daily. Requested further clarification regarding frequency of dosage as he should have enough medication for 10 days according to [place] (#30 for 10 days). Pt becomes even more upset and begins to yell at flex o writer operator... what is pain management for, what are you doing for me Barbering Teacher informs him he was evaluated and treatment plan for back pain and neck pain. Pt states youroffice has done nothing for me Further explained at his pain management initial consult, provider ordered x-rays and physical therapy. Physical therapy should be completed as it could help relieve the pain as well. Pt continues to yell why did I have to sign that paperwork in your office if you're not going to give me any medication Notified pt provider is able to prescribe gabapentin but would like to get update re: accurate dosing. He states he's taking two pills in the morning (different response to earlier in conversation with patient). Barbering Teacher asked for clarification as he said he was t aking it one time a day then later states twice (two pills in morning). Then pt yelled I'm done with you, I'm done! and hung up on flex o writer operator. * Telephone Encounter - Marjorie Putnam PA-C - 08/21/2021 12:12 PM EST Noted. documented in this encounter Plan of Treatment Upcoming Encounters Date Type Department Care Team (Late st Contact Info) Description 11/24/2024 11:00 AM EDT Appointment [facility] - CT Imaging [address] [place] [phone] documented as of this encounter Visit Diagnoses Not on filedocumented in this encounter Care Teams Construction Equipment Mechanic Helper Relationship Specialty Start Date End Date Katrina Georges MD [address] [place] [address] PCP - General Family Medicine 09/12/23 documented as of this encounter
--- OUTSIDE RECORDS SUMMARY | 2024-11-14 18:40 | XMS_ITS | Encounter Summary ---
Author Organization [facility] Address [address] [place] [address] Care Team Providers Care Internal Control Analyst Name Role Phone Katrina Georges MD Primary Care Provider [phone] Lolly Chowdary LPN Unavailable [phone] Encounter Details Date Type Department Care Team (Late st Contact Info) Description 10/30/2024 Results Follow-Up [facility] [address] [place] [address] Katrina Georges MD [address] [place], [place] [phone] Social History Tobacco Use Types Packs/Day Years [...] encounter Miscellaneous Notes * Telephone Encounter - Pia Pate - 11/02/2024 10:56 AM EDT Patient called and Dr. Georges's message was given- he is agreeable to be referred to Dr. Coughlin. Thank you. * Telephone Encounter - Kayla Ulrich MA - 10/30/2024 1:57 PM EDT Left Message for Patient to call back. * Telephone Encounter - Kayla Ulrich MA - 10/30/2024 1:57 PM EDT ----- Message from Dr. 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 I would recommend we send back to Dr Coughlin. ----- Message ----- From: Interface,Incoming Img Aat Sent: 10/29/2024 6:34 PM EDT To: Katrina Georges MD documented in this encounter Plan of Treatment Upcoming Encounters Date Type Department Care Team (Late st Contact Info) Description 01/01/2025 2:00 PM EDT Office Visit [facility] [address] [place] [address] Katrina Georges MD [address] [place], [place] [phone] documented as of this encounter Visit Diagnoses Not on filedocumented in this encounter Additional Health Concerns Assessment Noted Time PHQ-9 Depression Total Score: 14 025 1:00 PM EST documented as of this encounter Care Teams Internal Control Analyst Relationship Specialty Start Date End Date Katrina Georges MD [address] [facility] [place], [place] [phone] PCP - General Family Medicine 12/20/22 Lolly Chowdary LPN Licensed Practical Nurse Family Medicine 07/31/24 documented as of this encounter
--- OUTSIDE RECORDS SUMMARY | 2024-11-14 18:41 | XMS_ITS | Encounter Summary ---
Author Organization [facility] Address [address] [place], [place] [id number] Care Team Providers Care Card Tender Name Role Phone Katrina Georges Primary Care Provider [phone] Source Comments In the event this information is protected by the Federal Confidentiality of Alcohol and Drug AbusePatient Records regulations: The Federal rules restrict any use of the information to criminally investigate or prosecute any alcohol or drug abuse patient.[facility] Encounter Details Date Type Department Care Team (Latest Contact Info) Description 03/05/2019 H&P External-NonCCF Provider, External, PA-C Do not enter address information under generic External Provider. Social History Tobacco Use Types Packs/Day Years Used Date Smoking Tobacco: Former Cigarettes 2 30 1 07/13/1975 - 05/13/2006 Smokeless Tobacco: Never Alcohol Use Standard Drinks/Week Comments No 0 (1 standard drink = 0.6 oz pur e alcohol) Sex and Gender Information Value Date Recorded Sex Assigned at Not on file Legal Sex Male 10:17 AM EST Gender Identity Not on file Sexual Orientation Not on file documented as of this encounter Plan of Treatment Not on file documented as of this encounter Visit Diagnoses Not on filedocumented in this encounter Care Teams Card Tender Relationship Specialty Start Date End Date Katrina Georges [address] [place] [address] PCP - General Family Medicine 04/10/12 documented as of this encounter
--- NOTE | 2024-11-14 18:51 | CT_ITS ---
The [address] [address] Patient Name: REDDY CHRISTENSEN MRN: [id number] date: 1955 Sex: M Assigned Patient Location: ER Current Patient Location: ER Accession/Order Number: [id number] Exam Date: 11/14/2024 19:51 Report Date: 11/14/2024 19:55 At the request of: MANUEL KILGORE Procedure: CT lumbar spine wo con CT lumbar spine wo con 11/14/2024 7:28 PM History:Left-sided low back pain radiating down left leg for one month, recent fall TECHNIQUE: Multi detector CT axial slices of the lumbar spine were obtained without IV contrast. Volumetric acquisition sagittal, coronal, and 3-D reconstructions were performed and reviewed on a separate workstation. CT was performed with one or more of the following dose reduction techniques: Automated exposure control, adjustment of the mA and/or kV according to patient size, or use of iterative reconstruction technique. COMPARISON: 09/22/2022 FINDINGS: There is preservation of the vertebral body heights. There is severe disc height loss with partial autofusion at L2-L3, L4-5, and L5-S1. There is severe disc height loss with vacuum disc phenomena at L3-L4. There is moderate to severe disc height loss throughout otherwise. There is endplate osteophyte formation and facet hypertrophy contributing to spinal canal and neural foraminal stenosis throughout, greatest at L5-S1.. No fractures or dislocations are seen. The alignment of the lumbar spine is normal. The paraspinous soft tissues are within normal limits. The visualized lung parenchyma is unremarkable. Atherosclerotic changes are noted in the abdominal aorta and its branches. CT/CT lumbar spine wo con IMPRESSION: No acute bony abnormality or malalignment. Severe multilevel degenerative changes redemonstrated similar to that seen on the previous CT of the abdomen and pelvis. This contributes to spinal canal and neural foraminal stenosis which appears be greatest at L5-S1. Impression dictated by: Charli Maier M.D. 11/14/2024 7:55 PM Dictation Location: [place] [address] Electronically authenticated by: [id number] Y Date: 11/14/2024 19:55
--- NOTE | 2024-11-14 18:55 | XR_ITS ---
The [place] [id number] Patient Name: REDDY CHRISTENSEN MRN: [id number] date: 1955 Sex: M Assigned Patient Location: ER Current Patient Location: ER Accession/Order Number: [id number] Exam Date: 11/14/2024 19:55 Report Date: 11/14/2024 19:56 At the request of: MANUEL KILGORE Procedure: XR pelvis 1-2V XR pelvis 1-2V 11/14/2024 7:28 PM SIGNS AND SYMPTOMS: Low back pain radiating down left leg, recent fall PROTOCOL: Frontal radiograph the pelvis COMPARISON: 09/22/2022 FINDINGS: The bony ring of the pelvis is intact. Degenerative changes are noted in the hips and sacroiliac joints. No fracture or dislocation. XR/XR pelvis 1-2V IMPRESSION: No acute bony injury. Degenerative changes are noted in the sacroiliac joints and hips. Impression dictated by: Charli Maier M.D. 11/14/2024 7:56 PM Dictation Location: [place] [address] Electronically authenticated by: [id number] Y Date: 11/14/2024 19:56
--- NOTE | 2024-11-14 18:57 | ED.BACK1 ---
HPI HPI - Back Pain/Injury General Chief Complaint: Back Pain/Injury Stated Complaint: BACK PAIN Time Seen by Provider: 11/14/24 18:43 Source: patient Mode of arrival: Wheelchair Limitations: no limitations History of Present Illness HPI Narrative: Patient is a 69-year-old male who presents to the ER with concerns of increasing low back pain. Patient states he has a chronic history of low back pain which is typically tolerable he has seen his PCP before and was referred to a neurosurgeon but has not yet gone. Approximately 1 week ago the patient tripped falling on his left hip injuring his lower back. Had increased pain since with pain radiating into his left anterior thigh. He denies any bowel or bladder incontinence or saddle paresthesias. Pain is worse with forward flexion. He admits he tried to fish today and could not do that on the boat. Patient appears uncomfortable and grimacing with movement. He denies any numbness or tingling below the knee level of the knee. Patient denies any pain on the right side of his back or into his chest or anterior abdomen. Patient had a prior back surgery in the 1970s, and notes a large tender bruise on his left buttocks since his fall. MD elicited complaint: Reports back pain and fall Pertinent past history: Reports prior back pain, recent trauma and arthritis; Denies neurological deficit Onset (ago): week(s) Timing: Reports constant Severity: severe Similar Symptoms Previously: Yes Quality: Reports sharp, stabbing and spasming Location: Reports lumbar spine and left lower back Radiation: Reports left upper leg Exacerbating factors: Reports movement Relieving factors: Reports none Context: fall Associated symptoms: paresthesias Treatments prior to arrival: cold therapy Related Data Home Medications ?Medication ?Instructions ?Recorded ?Confirmed albuterol sulfate 90 mcg/actuation 1 inh inhalation Q6H PRN shortness 09/20/24 11/14/24 aerosol inhaler of breath or wheezing famotidine 20 mg tablet 20 mg PO .daily 09/20/24 11/14/24 latanoprost 0.005 % eye drops 1 drp ophthalmic (eye) DAILY 09/20/24 11/14/24 losartan 50 mg tablet 50 mg PO DAILY 09/20/24 11/14/24 bupropion HCl 300 mg 24 hr tablet, mg PO 11/14/24 extended release citalopram 40 mg tablet mg 11/14/24 metoprolol tartrate 25 mg tablet mg 11/14/24 semaglutide 2 mg/dose (8 mg/3 mL) 2 mg subcut QWEEK 11/14/24 11/14/24 subcutaneous pen injector (Ozempic) Previous Rx's ?Medication ?Instructions ?Recorded hydrocodone 5 mg-acetaminophen 325 1 tab PO TID PRN pain 3 days #9 11/14/24 mg tablet tabs tizanidine 4 mg capsule 4 mg PO TID PRN muscle spasticity 11/14/24 5 days #15 caps Allergies Allergy/AdvReac Type Severity Reaction Status Date / Time lisinopril AdvReac Severe Cough Verified 11/14/24 18:26 Opioid HPI Opioid Management Most Recent Opioid Data: Last Pain Scale 10 Today, 19:37 Last ED Pain Assessment Today, 19:37 Last MAR Pain Assessment Today, 19:27 Review of Systems ROS Constitutional Denies: fever or chills Eyes Denies: change in vision or blurry vision Ears, nose, mouth, and throat Denies: throat pain, neck pain or throat swelling Cardiovascular Denies: chest pain, palpitations or edema Respiratory Denies: shortness of breath or cough Gastrointestinal Denies: abdominal pain, nausea or vomiting Genitourinary Denies: painful urination or urinary frequency Musculoskeletal Reports: back pain; Denies: joint pain Integumentary/Breast Denies: rash or itching Neurological Denies: headache or numbness in extremities Psychiatric Denies: anxiety or mood swings Endocrine Denies: excessive urination PFSH PFSH Social History Little interest or pleasure in doing things: not at all Feeling down, depressed, or hopeless: not at all Exam Narrative Exam Narrative: Vital Signs reviewed and nurse's notes reviewed. The patient is not hypoxic. General: Alert, no acute distress, patient resting comfortably Skin: warm, intact, no pallor noted, no rash, no zoster like rash patient has a 3 inch midline incision from prior lumbar surgery. Head: Normocephalic, atraumatic Eye: Normal conjunctiva, EOMI Respiratory: No acute distress Abdomen: Normal bowel sounds, soft, nontender, no masses detected. No rebound, guarding, or rigidity noted. No midline pulsatile mass. Back: inspection of the back shows no obvious deformity, no swelling, no ecchymosis, contusion, abrasion, swelling, erythema, fluctuance or induration. No step offs or crepitus noted. No CVA tenderness noted bilaterally. Tenderness noted to left paravertebral lumbar region and mild soreness adjacent to the midline.. Straight leg raise on left is noted at 30 degrees. Straight leg raise on right is negative. Musculoskeletal: No deformity noted to bilateral lower extremities. Bruising appreciated to the left buttocks that is nontender, and patient reports as a result of his fall a week ago as he landed on the left hip. Pain with hip range of motion both internal and external. No cyanosis or mottling noted. normal pulses at DP and PT 2+ bilaterally and symmetrically. Normal 5/5 strength at ankles with dorsiflexion and plantar flexion. Quad and hamstring strength is 5/5. He has slight weakness with hip flexion 4/5 in the left and 5/5 on the right. Patient is able to ambulate. Normal sensation noted to the bilateral lower extremities. Reports pain going from his left lower back into his left anterior thigh lateral hip in a L2-L3 dermatome. Neurological: alert and oriented x4, normal sensory and motor observed. DTR 2+ at patellar and achilles bilaterally. Psychiatric: Cooperative Constitutional Vital Signs, click to edit/add: Last Vital Signs Temp 97.6 F 11/14/24 18:29 Pulse 75 11/14/24 18:29 Resp 20 11/14/24 18:29 BP 140/85 11/14/24 18:29 Pulse Ox 97 11/14/24 18:29 O2 Del Method Room Air 11/14/24 18:29 Course Vital Signs Vital signs: Vital Signs Temperature 97.6 F 11/14/24 18:29 Pulse Rate 75 11/14/24 18:29 Respiratory Rate 20 11/14/24 18:29 Blood Pressure 140/85 11/14/24 18:29 Pulse Oximetry 97 11/14/24 18:29 Oxygen Delivery Method Room Air 11/14/24 18:29 Temperature 97.6 F 11/14/24 18:29 Pulse Rate 75 11/14/24 18:29 Respiratory Rate 20 11/14/24 18:29 Blood Pressure 140/85 11/14/24 18:29 Pulse Oximetry 97 11/14/24 18:29 Oxygen Delivery Method Room Air 11/14/24 18:29 MDM - Back Pain/Injury MDM Narrative Medical decision making narrative: Patient presents to the ER with increased pain and spasms in his left lower back after a fall 1 week ago. He admits to a prior back surgery in the 1970s and a chronic baseline pain in his lower back that is currently worsened since his injury. He reports having x-rays in the past with his PCP and was referred to neurosurgery but did not go given the significant arthritic changes. He denies any bowel or bladder incontinence or saddle paresthesias. He is medicated here for his pain but we will hold steroids with his history of glaucoma. we will Obtain a pelvis xray and Ct of lumabr spine. Reviewed images from his CT lumbar spine and his pelvis x-ray. No evidence of fracture or significant degenerative changes his exam favors an L2-L3 radiculopathy. He may require an MRI with his family doctor but has no focal deficits today on exam other than some weakness with hip flexion he has no pain with hip range of motion and there is no evidence of hip fracture he has mild degenerative changes. We discussed Treatment: Until he can see his family doctor and we will prescribe him a muscle relaxant and a few pain pills to take we will avoid steroids given his history of glaucoma. Patient will with treatment plan notes that his pain is much improved after medications received here. Patient will contact his PCP on Saturday to discuss potential neurosurgery referral or pain management referral which she has declined in the past. He is advised not to do any heavy lifting pushing or pulling bending or stooping pending reevaluation with his PCP. The patient is to followup with primary care physician in next 2-3 days or to return to the emergency department should any of the signs or symptoms worsen or new symptoms develop. Patient had questions answered. The patient agrees with the following Diagnosis and Treatment plan and the patient will be discharged home. Differential Diagnosis Differential diagnosis: Likely lumbar radiculopathy, strain of lumbar region and AAA Medical Records Attestation: I reviewed the patient's medical records. Imaging Data CT lumbar and pelvis xray: Radiologist's impression: ITS Impressions Lumbar Spine CT 11/14/24 18:51 IMPRESSION: No acute bony abnormality or malalignment. Severe multilevel degenerative changes redemonstrated similar to that seen on the previous CT of the abdomen and pelvis. This contributes to spinal canal and neural foraminal stenosis which appears be greatest at L5-S1. Impression dictated by: Charli Maier M.D. 11/14/2024 7:55 PM Dictation Location: [employer] Electronically authenticated by: [id number] Y Date: 11/14/2024 19:55 Pelvis X-Ray 11/14/24 18:55 IMPRESSION: No acute bony injury. Degenerative changes are noted in the sacroiliac joints and hips. Impression dictated by: Charli Maier M.D. 11/14/2024 7:56 PM Dictation Location: [employer] Electronically authenticated by: [id number] Y Date: 11/14/2024 19:56 Discharge Plan Discharge Chief Complaint: Back Pain/Injury Clinical Impression: Lumbar radiculopathy, Back muscle spasm, Contusion of hip, left Patient Disposition: Home, Self-Care Time of Disposition Decision: 20:14 Condition: Good Prescriptions / Home Meds: New tizanidine 4 mg capsule 4 mg PO TID PRN (Reason: muscle spasticity) 5 Days Qty: 15 0RF hydrocodone-acetaminophen 5-325 mg tablet 1 tab PO TID PRN (Reason: pain) 3 Days Qty: 9 0RF No Action albuterol sulfate 90 mcg/actuation HFA aerosol inhaler 1 inh INHALATION Q6H PRN (Reason: shortness of breath or wheezing) famotidine 20 mg tablet 20 mg PO .daily latanoprost 0.005 % drops 1 drp OPHTHALMIC (EYE) DAILY losartan 50 mg tablet 50 mg PO DAILY citalopram 40 mg tablet bupropion HCl 300 mg tablet extended release 24 hr PO metoprolol tartrate 25 mg tablet Ozempic 2 mg/dose (8 mg/3 mL) pen injector 2 mg subcut QWEEK Print Language: Latvian Instructions: Lumbar Radiculopathy (ED), Muscle Spasm (ED) Additional Instructions: Call PCP on Saturday for follow up on symptoms Consider pain management vs neurosurgery referral. Referrals: [facility] [Primary Care Provider, Family Practice] - 11/17/24
[2024-11-14] MEDS: ORPHENADRINE 60 MG/2 ML VIAL IM (19:27)
[2024-11-14] MEDS: HYDROMORPHONE HCL 1 MG/ML CARTRIDGE IM (19:27)
[2024-11-14 20:10] VITALS: BP 122/68; PULSE 88; O2SAT 98
== END 2024-11-14 20:10 | disposition home or self-care (01) ==
PROVIDERS: Emergency Provider Emergency Medicine; PCP Family Medicine
DX: M54.16 Radiculopathy, lumbar region (principal); M51.369 Other intervertebral disc degeneration, lumbar region without mention of lumbar back pain or lower extremity pain; M48.062 Spinal stenosis, lumbar region with neurogenic claudication; M54.50 Low back pain, unspecified; M62.838 Other muscle spasm; S70.02XA Contusion of left hip, initial encounter; W01.0XXA Fall on same level from slipping, tripping and stumbling without subsequent striking against object, initial encounter
CPT/HCPCS: 72131; 72170; 96372; 99285; J1171; J2360